=== PATIENT | female | born 1935 | race Caucasian/White ===

== ENCOUNTER 2017-10-23 21:14 | Emergency (ER) | payer OTHER, MEDICARE ==
[2017-10-23] MEDS ORDERED: PHENYLEPHRINE 0.5% NOSE 15ML NAS ONE (22:27)
[2017-10-23 22:46] LABS: Absolute Lymphocytes (CBC) 2.1 K/uL (0.7-4.9); Absolute Monocytes 0.8 K/uL (0.1-1.3); Absolute Neutrophil 7.6 K/uL (1.8-8.0); Basophils % 0.4 % (0-1.3); Eosinophils % 1.7 % (0-4.4); Lymphocytes % 19.7 % (15.3-44.8); MCH 29.6 pg (27.0-35.0); MCV 87.3 fL (80-100); MPV 8.9 fL (7.6-11.3); Monocytes % 7.3 % (3.3-12.3)
--- NOTE | 2017-10-23 23:28 | EDPHYS ---
Physician Documentation [facility] Name: Shanice Morales Age: 81 yrs Sex: Female : 1935 Arrival Date: 10/23/2017 Time: 21:17 Bed 14 Private MD: Robert Calvo C ED Physician Carlo Yeung HPI: 10/24 00:08 This 81 yrs old Female presents to ER via Ambulatory with complaints of Nose gs Bleed. 00:08 The patient presents with a nose bleed, that is apparently anterior. Onset: The gs symptoms/episode began/occurred 2 day(s) ago. Modifying factors: The symptoms are alleviated by nothing. the symptoms are aggravated by nothing. Associated signs and symptoms: Pertinent negatives: blurred vision, lightheadedness. Severity of symptoms: At their worst the symptoms were moderate in the emergency department the symptoms have improved mildly. The patient has experienced similar episodes in the past, a few times. Historical: - Allergies: 10/23 21:43 Demerol; aj1 21:43 Compazine; aj1 - Home Meds: 21:43 levothyroxine 88 mcg tab 1 tab once daily [Active]; Coreg 6.25 mg Oral tab 1 tab 2 aj1 times per day [Active]; Trileptal 150 mg oral tab 1 tabs 2 times per day [Active]; alendronate 70 mg/75 mL oral soln 75 mL once wkly [Active]; Lyrica 50 mg Oral [Active]; Lasix 20 mg Oral tab 1 tab once daily [Active]; losartan 25 mg oral tab 1 tab once daily [Active]; Xarelto 20 mg oral tab 1 tab once daily [Active]; fenofibrate 160 mg oral tab 1 tab once daily [Active]; - PMHx: 21:43 Hypothyroidism; Atrial Fib; nerve pain; aj1 - PSHx: 21:43 Knee surgery; aj1 - Immunization history:: Flu vaccine is up to date. - Social history:: Smoking status: Patient/guardian denies using tobacco. - Ebola Screening: : Patient denies travel to an Ebola-affected area in the 21 days before illness onset. ROS: 10/24 00:08 All other systems are negative. gs Exam: 00:08 Head/Face: Normocephalic, atraumatic. Eyes: Pupils equal round and reactive to light, gs extra-ocular motions intact. Lids and lashes normal. Conjunctiva and sclera are non-icteric and not injected. Cornea within normal limits. Periorbital areas with no swelling, redness, or edema. Neck: Trachea midline, no thyromegaly or masses palpated, and no cervical lymphadenopathy. Supple, full range of motion without nuchal rigidity, or vertebral point tenderness. No Meningismus. Cardiovascular: Regular rate and rhythm with a normal S1 and S2. No gallops, murmurs, or rubs. Normal PMI, no JVD. No pulse deficits. Respiratory: Lungs have equal breath sounds bilaterally, clear to auscultation and percussion. No rales, rhonchi or wheezes noted. No increased work of breathing, no retractions or nasal flaring. Abdomen/GI: Soft, non-tender, with normal bowel sounds. No distension or tympany. No guarding or rebound. No evidence of tenderness throughout. Skin: Warm, dry with normal turgor. Normal color with no rashes, no lesions, and no evidence of cellulitis. 00:08 Constitutional: The patient appears alert, awake. 00:08 ENT: Nose: bleeding, is seen from the right nare, and is minimal, no septal hematoma is appreciated, Posterior pharynx: blood noted posterior pharynx. Vital Signs: 10/23 21:43 BP 134 / 98; Pulse 87; Resp 20; Temp 97.6(O); Pulse Ox 94% on R/A; Weight 81.19 kg (R); aj1 Height 5 ft. 5 in. (165.10 cm) (R); Pain 0/10; 22:00 BP 124 / 101; Pulse 89; Resp 18; Temp 96.9; Pulse Ox 96% ; Pain 0/10; fu 23:01 BP 141 / 93; Pulse 89; Resp 18; Pulse Ox 96% ; Pain 0/10; fu 21:43 Body Mass Index 29.79 (81.19 kg, 165.10 cm) aj1 Procedures: 10/24 00:08 Epistaxis treatment: A small amount of bleeding noted from Treated using Oxymetazoline gs sprays, anterior packing, surgicel, Bleeding pharynx clear. MDM: 10/23 22:11 Patient medically screened. gs 10/24 00:08 Differential diagnosis: spontaneous epistaxis. Data reviewed: vital signs, nurses notes. Counseling: I had a detailed discussion with the patient and/or guardian regarding: the historical points, exam findings, and any diagnostic results supporting the discharge/admit diagnosis, lab results, the need for outpatient follow up, an ENT specialist. Response to treatment: the patient's symptoms have markedly improved after treatment, the patient's symptoms have resolved after treatment. 10/23 22:12 Order name: CBC with Diff; Complete Time: 23:25 10/23 22:12 Order name: Misc. Order: gargle swish and spit ice water until clear; Complete Time: 22:41 Administered Medications: 10/23 22:35 Drug: Miller-Synephrine [place] 0.5 % 2 sprays Route: Intranasal; Site: both nares; fu Disposition: 10/23/17 23:28 Discharged to Home. Impression: Epistaxis. - Condition is Stable. - Discharge Instructions: Nosebleed, Adult. - Prescriptions for Keflex 250 mg Oral Capsule - take 1 capsule by ORAL route every 12 hours for 5 days; 10 capsule. - Medication Reconciliation Form, Thank You Letter, Antibiotic Education, Prescription Opioid Use form. - Follow up: Cony Quinteros MD; When: 2 - 3 days; Reason: Re-evaluation by your physician. - Notes: have packing removed 3-5 days Signatures: Dispatcher [employer] Matilde King RN RN aj1 Carlo Yeung MD MD Mukund Jackson RN RN Corrections: (The following items were deleted from the chart) 10/24 00:32 10/23 23:28 10/23/2017 23:28 Discharged to Home. Impression: Epistaxis. Condition is fu Stable. Forms are Medication Reconciliation Form, Thank You Letter, Antibiotic Education, Prescription Opioid Use. Follow up: Cony Quinteros; When: 2 - 3 days; Reason: Re-evaluation by your physician.
--- NOTE | 2017-10-23 23:28 | ER ---
Nurse's Notes [facility] Name: Shanice Morales Age: 81 yrs Sex: Female : 1935 Arrival Date: 10/23/2017 Time: 21:17 Bed 14 Private MD: Robert Calvo C Diagnosis: Epistaxis Presentation: 10/23 21:32 Presenting complaint: Patient states: She fell 8 days ago and landed on her face, she aj1 does not remember falling states she velieves that she passed out. She was seen at Dr. Calvo's office on Tuesday, no addition tests or prescriptions were orderedat that time. Her nose has been recovering since then and she has 3 nose bleeds since the fall. Today she was unable to get the nose bleed to stop. Patient takes Xarelto for A-fib. Transition of care: patient was not received from another setting of care. Onset of symptoms was October 23, 2017. Risk Assessment: Do you want to hurt yourself or someone else? Patient reports no desire to harm self or others. Initial Sepsis Screen: Does the patient meet any 2 criteria? No. Patient's initial sepsis screen is negative. Does the patient have a suspected source of infection? No. Patient's initial sepsis screen is negative. Care prior to arrival: None. 21:32 Method Of Arrival: Ambulatory aj 21:32 Acuity: KYA 3 aj1 Triage Assessment: 21:43 General: Appears in no apparent distress. Behavior is calm, cooperative. Pain: Denies aj1 pain. Neuro: Level of Consciousness is awake, alert, obeys commands. Cardiovascular: Patient's skin is warm and dry. Respiratory: Airway is patent Respiratory effort is even, unlabored, Respiratory pattern is regular, symmetrical. Historical: - Allergies: 21:43 Demerol; aj1 21:43 Compazine; aj1 - Home Meds: 21:43 levothyroxine 88 mcg tab 1 tab once daily [Active]; Coreg 6.25 mg Oral tab 1 tab 2 aj1 times per day [Active]; Trileptal 150 mg oral tab 1 tabs 2 times per day [Active]; alendronate 70 mg/75 mL oral soln 75 mL once wkly [Active]; Lyrica 50 mg Oral [Active]; Lasix 20 mg Oral tab 1 tab once daily [Active]; losartan 25 mg oral tab 1 tab once daily [Active]; Xarelto 20 mg oral tab 1 tab once daily [Active]; fenofibrate 160 mg oral tab 1 tab once daily [Active]; - PMHx: 21:43 Hypothyroidism; Atrial Fib; nerve pain; aj1 - PSHx: 21:43 Knee surgery; aj1 - Immunization history:: Flu vaccine is up to date. - Social history:: Smoking status: Patient/guardian denies using tobacco. - Ebola Screening: : Patient denies travel to an Ebola-affected area in the 21 days before illness onset. Screenin:35 Fall Risk Fall in past 12 months (25 points). Secondary diagnosis (15 points) IV access fu (20 points). Ambulatory Aid- None/Bed Rest/Nurse Assist (0 pts). Gait- Normal/Bed Rest/Wheelchair (0 pts) Mental Status- Oriented to own ability (0 pts). Assessment: 22:08 General: Appears uncomfortable, well groomed, well developed, Behavior is calm, fu cooperative. Pain: Denies pain. Neuro: Level of Consciousness is awake, alert, obeys commands, Oriented to person, place, time, situation, Stamp Collector are equal bilaterally Moves all extremities. Speech is normal, Facial symmetry appears normal, Intact Cardiovascular: Reports history of afib and takes Xarelto at home. Respiratory: Airway is patent Breath sounds are clear bilaterally. GI: No signs and/or symptoms were reported involving the gastrointestinal system. Patient currently denies nausea, vomiting. Derm: Bruising that is on left periorbital area, right upper arm, and both chest due to fall 8 days ago. Musculoskeletal: No signs and/or symptoms reported regarding the musculoskeletal system. Vital Signs: 21:43 BP 134 / 98; Pulse 87; Resp 20; Temp 97.6(O); Pulse Ox 94% on R/A; Weight 81.19 kg (R); aj1 Height 5 ft. 5 in. (165.10 cm) (R); Pain 0/10; 22:00 BP 124 / 101; Pulse 89; Resp 18; Temp 96.9; Pulse Ox 96% ; Pain 0/10; fu 23:01 BP 141 / 93; Pulse 89; Resp 18; Pulse Ox 96% ; Pain 0/10; fu 21:43 Body Mass Index 29.79 (81.19 kg, 165.10 cm) aj1 ED Course: 21:17 Patient arrived in ED. es 21:18 Robert Calvo MD is Private Physician. es 21:37 Triage completed. aj1 21:43 Arm band placed on Patient placed in an exam room. aj1 21:49 Mukund Jackson, RN is Primary Nurse. fu 21:52 Carlo Yeung MD is Attending Physician. gs 22:15 Inserted saline lock: 20 gauge in right forearm, using aseptic technique. fu 22:15 Initial lab(s) drawn, by me, sent to lab. fu 23:12 Side rails up X 1. family at bedside. fu 23:26 Cony Quinteros MD is Referral Physician. gs 23:50 IV discontinued, bleeding controlled, No redness/swelling at site. Pressure dressing fu applied. Administered Medications: 22:35 Drug: Miller-Synephrine [place] 0.5 % 2 sprays Route: Intranasal; Site: both nares; fu Outcome: 23:28 Discharge ordered by . 23:58 Discharged to home ambulatory, with family. fu 23:58 Condition: improved 23:58 Discharge instructions given to patient, Instructed on discharge instructions, follow up and referral plans. Demonstrated understanding of instructions, follow-up care, medications, Prescriptions given X 1. 10/24 00:32 Patient left the ED. fu Signatures: Matilde Tucker, RN RN aj1 Velma Langston Carlo Yeung MD MD Mukund Jackson RN RN fu
== END 2017-10-24 00:32 | disposition home or self-care (01) ==
LOC: ER 21:14
DX: R04.0 Epistaxis (principal); E03.9 Hypothyroidism, unspecified; I48.91 Unspecified atrial fibrillation; Z79.01 Long term (current) use of anticoagulants; Z88.5 Allergy status to narcotic agent; Z88.8 Allergy status to other drugs, medicaments and biological substances
CPT/HCPCS: 30901; 36415; 85025; 99284

== ENCOUNTER → 2017-11-10 | Day surgery (SDC) | payer OTHER, MEDICARE ==
[2017-11-09 13:50] LABS: Absolute Lymphocytes (CBC) 1.7 K/uL (0.7-4.9); Absolute Monocytes 0.6 K/uL (0.1-1.3); Absolute Neutrophil 3.9 K/uL (1.8-8.0); Basophils % 0.3 % (0-1.3); Eosinophils % 2.1 % (0-4.4); Hematocrit 41.6 % (36.0-45.0); Lymphocytes % 26.8 % (15.3-44.8); MCH 29.7 pg (27.0-35.0); MPV 8.9 fL (7.6-11.3); Monocytes % 9.1 % (3.3-12.3); RBC Red Blood Cell Count 4.72 M/uL (3.86-4.86)
[2017-11-09 13:54] LABS: Protime INR 1.18
[2017-11-09 14:04] LABS: Potassium 4.4 mmol/L (3.5-5.1)
--- NOTE | 2017-11-09 14:13 | RAD REPORT ---
EXAM DESCRIPTION: RAD - Chest Pa And Lat (2 Views) - 11/09/2017 1:46 pm CLINICAL HISTORY: preop<Reason For Exam>preop Preop chest, pending cardioversion COMPARISON: Chest Pa And Lat (2 Views) dated 09/26/2017; CHEST PA AND LAT 2 VIEW dated 02/03/2015; CH EST PA AND LAT 2 VIEW dated 06/05/2012; CHEST PA AND LAT 2 VIEW dated 07/15/2011; Chest For Pe Angio [place] 10/04/2017<Comparisons> TECHNIQUE: PA and lateral views of the chest were obtained. FINDINGS: The lungs are clear of a peripheral mass, infiltrate or failure finding. Lung markings are prominent but not clearly different. Cardiomegaly is present without vascular engorgement. Trachea is midline. Heart size is normal and central vasculature is within normal limits. No pleural effusio n or pneumothorax seen. No acute bony finding noted. No aortic abnormality. IMPRESSION: Stable cardiomegaly with no acute failure or volume overload. Mild chronic interstitial lung disease with no acute lung parenchymal process.
[~2017-11-10] MED LIST: METOPROLOL TARTRATE 5 MG/5 ML INJ IV ONE; MIDAZOLAM HCL 5 MG/5 ML INJ ONE; NA CHLORIDE 0.9% 500 ML ONE
--- NOTE | 2017-11-10 12:20 | OP ---
Surgeon: Rell Ayala MD Procedure: Ms. Morales is an 81-year-old white woman with symptomatic atrial fibrillation with bleedi ng on Xarelto, admitted for cardioversion. She was admitted as an outpatient. She was given 8 mg of Versed IV push for sedation. She received 1 shock of 100 joules and she remained in atrial fibrilla tion at the second shock of 200 joules synchronized for atrial fibrillation. The patient went into v entricular fibrillation, which was rapidly converted to sinus rhythm after receiving 1 shock of 360 j oules. There was no blood loss. Postoperative Diagnosis: Coronary successful cardioversion of atrial fibrillation to sinus rhythm. Total Conscious Sedation: 30 minutes. Plan: The plan is to continue Xarelto, stop Coreg, start Multaq 400 b.i.d., and I will see her in e office in 2 weeks. She can go home today whenever she wakes up. SARAH/HARLEY Voice ID: [id number] Report ID: [id number]
--- NOTE | 2017-11-10 16:29 | EKG ---
Test Date: 2017-11-10 Test Time: 09:35:34 [employer] Associate: JACEY MEASUREMENT RESULTS: Intervals: Rate: 83 MN: QRSD: 102 QT: 374 QTc: 439 [place]: P: MN: QRS: -29 T: 17 INTERPRETIVE STATEMENTS: Atrial fibrillation Abnormal ECG Compared to ECG 11/10/2017 08:10:58 Sinus rhythm no longer present First degree AV block no longer present Left-axis deviation no longer present Electronically Signed On 11-10-17 16:26:11 CDT by Rell Ayala
--- NOTE | 2017-11-10 16:30 | EKG ---
Test Date: 2017-11-10 Test Time: 08:10:58 Adjunct Professor Of [employer] History: JACEY MEASUREMENT RESULTS: Intervals: Rate: 61 AL: 252 QRSD: 104 QT: 428 QTc: 430 [place]: P: 61 AL: 252 QRS: -32 T: 26 INTERPRETIVE STATEMENTS: Sinus rhythm with 1st degree AV block Left axis deviation Abnormal ECG Compared to ECG 08/07/2013 18:15:38 First degree AV block now present Left-axis deviation now present Atrial fibrillation no longer present Electronically Signed On 11-10-17 16:26:22 CDT by Rell Ayala
== END | disposition home or self-care (01) ==
LOC: CCL 06:30
DX: I48.91 Unspecified atrial fibrillation (principal); Z79.01 Long term (current) use of anticoagulants
CPT/HCPCS: 36415; 71046; 80048; 85025; 85610; 85730; 92960; 93005 ×2; J2250

== ENCOUNTER 2018-02-13 17:14 | Emergency (ER) | payer OTHER, MEDICARE ==
[2018-02-13 18:46] LABS: Absolute Lymphocytes (CBC) 1.2 K/uL (0.7-4.9); Absolute Monocytes 0.5 K/uL (0.1-1.3); Absolute Neutrophil 5.8 K/uL (1.8-8.0); Basophils % 0.2 % (0-1.3); Eosinophils % 1.1 % (0-4.4); Hematocrit 41.9 % (36.0-45.0); Lymphocytes % 16.2 % (15.3-44.8); MCH 30.2 pg (27.0-35.0); MPV 9.3 fL (7.6-11.3); Monocytes % 6.8 % (3.3-12.3); RBC Red Blood Cell Count 4.71 M/uL (3.86-4.86)
--- NOTE | 2018-02-13 19:22 | RAD REPORT ---
EXAM DESCRIPTION: CT - Head Brain Wo Cont - 02/13/2018 7:03 pm CLINICAL HISTORY: TRAUMA Fall, head injury COMPARISON: HEAD BRAIN W O CONTRAST dated 10/11/2013; HEAD BRAIN W O CONTRAST dated 04/16/2008 TECHNIQUE: All CT scans are performed using dose optimization technique as appropriate and may inclu de automated exposure control or mA/KV adjustment according to patient size. FINDINGS: No intracranial hemorrhage, hydrocephalus or extra-axial fluid collection.Mild generalized brain atrophy is present with mild periventricular and deep white matter chronic microvascular ische ezra changes.No areas of brain edema or evidence of midline shift. The paranasal sinuses and mastoids are clear. The calvarium is intact. IMPRESSION: No acute intracranial abnormality.
--- NOTE | 2018-02-13 19:24 | RAD REPORT ---
EXAM DESCRIPTION: RAD - Chest Single View - 02/13/2018 6:59 pm CLINICAL HISTORY: MALAISE Chest pain. COMPARISON: Chest Pa And Lat (2 Views) dated 11/22/2017; Chest Pa And Lat (2 Views) dated 11/09/2017; Chest Pa And Lat (2 Views) dated 09/26/2017; CHEST PA AND LAT 2 VIEW dated 02/03/2015 FINDINGS: Portable technique limits examination quality. The lungs are grossly clear. The heart is moderately enlarged in size. No displaced fractures. IMPRESSION: Moderate cardiomegaly.
[2018-02-13 19:56] LABS: Protime INR 1.18
[2018-02-13 20:10] LABS: Albumin 3.9 g/dL (3.4-5.0); Bilirubin Direct 0.2 mg/dL (0-0.2); Bilirubin Total 0.5 mg/dL (0.2-1.0); Magnesium 2.3 mg/dL (1.8-2.4); Protein, Total 7.3 g/dL (6.4-8.2); Troponin (Emerg Dept Use Only) 0.04 ng/mL (0.0-0.045)
--- NOTE | 2018-02-13 20:15 | ER ---
Nurse's Notes [facility] Name: Shanice Morales Age: 82 yrs Sex: Female : 1935 Arrival Date: 02/13/2018 Time: 17:23 Bed 20 Private MD: Robert Calvo C Diagnosis: Weakness Presentation: 02/13 17:25 Presenting complaint: EMS states: pt was out covering her plants today and fell in the tw2 yard, denies head trauma, no loc, says she has been weak since Tuesday, pt is on Xarelto, hypertensive and tachycardic for us, ekg showed left bundle branch block, 90 mg/dL is glucose, hx: afib, hypertension, tia, hyperlipidemia, hyperthyroidism, pulmonary htn, vertigo. Transition of care: patient was not received from another setting of care. Onset of symptoms was February 13, 2018. Risk Assessment: Do you want to hurt yourself or someone else? Patient reports no desire to harm self or others. Initial Sepsis Screen: Does the patient meet any 2 criteria? No. Patient's initial sepsis screen is negative. Does the patient have a suspected source of infection? No. Patient's initial sepsis screen is negative. Care prior to arrival: IV initiated. 20 GA, in the right forearm. 17:25 Method Of Arrival: EMS: [facility] tw2 17:25 Acuity: KYA 3 tw2 Historical: - Allergies: 17:42 Compazine; tw2 17:42 Demerol; tw2 17:42 meperidine HCl; tw2 - Home Meds: 17:42 Xarelto 20 mg Oral TbER 1 tab once daily [Active]; Trileptal 150 mg Oral TbER 1 tabs 2 tw2 times per day [Active]; Lyrica 50 mg Oral [Active]; alendronate 70 mg/75 mL Oral soln 75 mL once wkly [Active]; Meclizine Oral [Active]; Coreg 6.25 mg Oral TbER 1 tab 2 times per day [Active]; fenofibrate 160 mg Oral TbER 1 tab once daily [Active]; Lasix 20 mg Oral TbER 1 tab once daily [Active]; levothyroxine 88 mcg TbER 1 tab once daily [Active]; losartan 25 mg Oral TbER 1 tab once daily [Active]; - PMHx: 17:42 Atrial Fib; Hypothyroidism; nerve pain; Hypertension; Hyperlipidemia; TIA; vertigo; tw2 - PSHx: 17:42 Knee surgery; tw2 - Immunization history:: Adult Immunizations. - Social history:: Smoking status: . - Ebola Screening: : Patient denies travel to an Ebola-affected area in the 21 days before illness onset. Screenin:43 Abuse screen: Denies threats or abuse. Nutritional screening: No deficits noted. tw2 Tuberculosis screening: No symptoms or risk factors identified. Fall Risk None identified. Assessment: 17:43 General: Appears in no apparent distress. Behavior is calm, cooperative, appropriate tw2 for age. Pain: Denies pain. Neuro: Level of Consciousness is awake, alert, obeys commands, Oriented to person, place, time, situation, Reports weakness since Tuesday. Cardiovascular: Heart tones S1 S2 Patient's skin is warm and dry. Respiratory: Airway is patent Respiratory effort is even, unlabored, Respiratory pattern is regular, symmetrical, Breath sounds are clear bilaterally. GI: Abdomen is round non-distended, Bowel sounds present X 4 quads. Reports constipation, since for 5 days now. : No signs and/or symptoms were reported regarding the genitourinary system. EENT: No signs and/or symptoms were reported regarding the EENT system. Derm: No signs and/or symptoms reported regarding the dermatologic system. Musculoskeletal: Range of motion: intact in all extremities. 18:45 Reassessment: pt sent to restroom in w/c, pt had bm at this time. tw2 18:55 Reassessment: Patient appears in no apparent distress at this time. No changes from tw2 previously documented assessment. Patient and/or family updated on plan of care and expected duration. Pain level reassessed. Patient is alert, oriented x 3, equal unlabored respirations, skin warm/dry/pink. 19:12 Reassessment: Patient appears in no apparent distress at this time. No changes from jd3 previously documented assessment. Patient and/or family updated on plan of care and expected duration. Pain level reassessed. Patient is alert, oriented x 3, equal unlabored respirations, skin warm/dry/pink. 20:11 Reassessment: Patient appears in no apparent distress at this time. Patient and/or jd3 family updated on plan of care and expected duration. Pain level reassessed. Patient is alert, oriented x 3, equal unlabored respirations, skin warm/dry/pink. 20:41 Reassessment: Patient appears in no apparent distress at this time. Patient and/or jd3 family updated on plan of care and expected duration. Pain level reassessed. Patient is alert, oriented x 3, equal unlabored respirations, skin warm/dry/pink. Patient states feeling better. Vital Signs: 17:27 BP 137 / 82; Pulse 99; Resp 18; Pulse Ox 97% on R/A; Pain 0/10; tw2 17:31 Temp 97.8(TE); tw2 18:55 BP 130 / 105; Pulse 100; Resp 17; Pulse Ox 97% on R/A; tw2 19:23 Pulse 98; Resp 19 S; Pulse Ox 97% on R/A; jd3 20:11 BP 139 / 97; Pulse 92; Resp 18 S; Pulse Ox 96% on R/A; jd3 NIH Stroke Scale Scores: 20:31 NIHSS Score: 0 gs ED Course: 17:23 Patient arrived in ED. rg4 17:23 Robert Calvo MD is Private Physician. rg4 17:24 Camila Pandey RN is Primary Nurse. tw2 17:25 Bed in low position. Call light in reach. Side rails up X2. rn intern on. Pulse tw2 ox on. NIBP on. Warm blanket given. 17:27 Carlo Yeung MD is Attending Physician. gs 17:27 Triage completed. tw2 17:43 Arm band placed on. tw2 18:02 EKG done, by polysomnography technologist. reviewed by Carlo Yeung MD. dt2 18:02 Maintain EMS IV. Dressing intact. Good blood return noted. Site clean \T\ dry. Gauge \T\ tw 2 site: 18 g right fa. 18:59 XRAY Chest (1 view) In Process Unspecified. EDMS 19:03 CT Head Brain wo Cont In Process Unspecified. EDMS 19:05 Report given to KIARA Echevarria - outstanding is labs recollect. tw2 20:40 No provider procedures requiring assistance completed. IV discontinued, intact, jd3 bleeding controlled, No redness/swelling at site. Pressure dressing applied. Administered Medications: No medications were administered Outcome: 20:14 Discharge ordered by . gs 20:40 Discharged to home via wheelchair, with family. jd3 20:40 Condition: stable 20:40 Discharge instructions given to patient, family, Instructed on discharge instructions, follow up and referral plans. Demonstrated understanding of instructions, follow-up care. 20:41 Patient left the ED. [email or web address] NIH Stroke Scale - NIH Stroke Score Date: 02/13/2018 Time: 20:31 Total Score = 0 1a. Level of Consciousness (LOC) - 0(Alert) 1b. Level of Consciousness (LOC) (Year \T\ Age) - 0(Both) 1c. LOC Commands (Open \T\ Closes Eyes/Printer Helper) - 0(Both) 2. Best Gaze (Lateral Gaze Paresis) - 0(Normal) 3. Visual Field Loss - 0(No visual loss) 4. Facial Palsy - 0(Normal) 5a. Left Arm: Motor (10-second hold) - 0(No drift) 5b. Right Arm: Motor (10-second hold) - 0(No drift) 6a. Left Leg: Motor (5-second hold - always test supine) - 0(No drift) 6b. Right Leg: Motor (5-second hold - always test supine) - 0(No drift) 7. Limb Ataxia (finger/nose \T\ heel/chairez - test with eyes open) - 0(Absent) 8. Sensory Loss (pinprick arms/legs/face) - 0(Normal) 9. Best Language: Aphasia (description/naming/reading) - 0(No aphasia) 10. Dysarthria (speech clarity - read or repeat words) - 0(Normal) 11. Extinction and Inattention (visual/tactile/auditory/spatial/personal) - 0(No abnormality) Initials: Signatures: Dispatcher [employer] Camila Briones RN RN tw2 Shama Mina rg4 Carlo Yeung MD MD Jonathan Chen RN RN jd3 Maribel Vizcaino2
--- NOTE | 2018-02-13 20:15 | EDPHYS ---
Physician Documentation [facility] Name: Shanice Morales Age: 82 yrs Sex: Female : 1935 Arrival Date: 02/13/2018 Time: 17:23 Bed 20 Private MD: Robert Calvo C ED Physician Carlo Yeung HPI: 02/13 20:31 This 82 yrs old Female presents to ER via EMS with complaints of Weakness. gs 20:31 The patient presents to the emergency department with weakness of the. Onset: The gs symptoms/episode began/occurred 2 week(s) ago, and became persistent fell today. Associated signs and symptoms: Pertinent negatives: altered mental status, fever, neck stiffness, paresthesias, syncope. Severity of symptoms: At their worst the symptoms were moderate in the emergency department the symptoms have improved markedly. The patient has experienced similar episodes in the past, a few times. Historical: - Allergies: 17:42 Compazine; tw2 17:42 Demerol; tw2 17:42 meperidine HCl; tw2 - Home Meds: 17:42 Xarelto 20 mg Oral TbER 1 tab once daily [Active]; Trileptal 150 mg Oral TbER 1 tabs 2 tw2 times per day [Active]; Lyrica 50 mg Oral [Active]; alendronate 70 mg/75 mL Oral soln 75 mL once wkly [Active]; Meclizine Oral [Active]; Coreg 6.25 mg Oral TbER 1 tab 2 times per day [Active]; fenofibrate 160 mg Oral TbER 1 tab once daily [Active]; Lasix 20 mg Oral TbER 1 tab once daily [Active]; levothyroxine 88 mcg TbER 1 tab once daily [Active]; losartan 25 mg Oral TbER 1 tab once daily [Active]; - PMHx: 17:42 Atrial Fib; Hypothyroidism; nerve pain; Hypertension; Hyperlipidemia; TIA; vertigo; tw2 - PSHx: 17:42 Knee surgery; tw2 - Immunization history:: Adult Immunizations. - Social history:: Smoking status: . - Ebola Screening: : Patient denies travel to an Ebola-affected area in the 21 days before illness onset. ROS: 20:31 All other systems are negative. gs Exam: 20:31 Head/Face: Normocephalic, atraumatic. Eyes: Pupils equal round and reactive to light, gs extra-ocular motions intact. Lids and lashes normal. Conjunctiva and sclera are non-icteric and not injected. Cornea within normal limits. Periorbital areas with no swelling, redness, or edema. ENT: Nares patent. No nasal discharge, no septal abnormalities noted. Tympanic membranes are normal and external auditory canals are clear. Oropharynx with no redness, swelling, or masses, exudates, or evidence of obstruction, uvula midline. Mucous membranes moist. Neck: Trachea midline, no thyromegaly or masses palpated, and no cervical lymphadenopathy. Supple, full range of motion without nuchal rigidity, or vertebral point tenderness. No Meningismus. Chest/axilla: Normal chest wall appearance and motion. Nontender with no deformity. No lesions are appreciated. Respiratory: Lungs have equal breath sounds bilaterally, clear to auscultation and percussion. No rales, rhonchi or wheezes noted. No increased work of breathing, no retractions or nasal flaring. Abdomen/GI: Soft, non-tender, with normal bowel sounds. No distension or tympany. No guarding or rebound. No evidence of tenderness throughout. Back: No spinal tenderness. No costovertebral tenderness. Full range of motion. Skin: Warm, dry with normal turgor. Normal color with no rashes, no lesions, and no evidence of cellulitis. MS/ Extremity: Pulses equal, no cyanosis. Neurovascular intact. Full, normal range of motion. Neuro: Awake and alert, GCS 15, oriented to person, place, time, and situation. Cranial nerves II-XII grossly intact. Motor strength 5/5 in all extremities. Sensory grossly intact. Cerebellar exam normal. Normal gait. 20:31 Constitutional: The patient appears alert, awake. 20:31 Cardiovascular: Rate: normal, Rhythm: irregularly irregular, Pulses: no pulse deficits are appreciated, Heart sounds: normal. 20:31 ECG was reviewed by the Attending Physician. Vital Signs: 17:27 BP 137 / 82; Pulse 99; Resp 18; Pulse Ox 97% on R/A; Pain 0/10; tw2 17:31 Temp 97.8(TE); tw2 18:55 BP 130 / 105; Pulse 100; Resp 17; Pulse Ox 97% on R/A; tw2 19:23 Pulse 98; Resp 19 S; Pulse Ox 97% on R/A; jd3 20:11 BP 139 / 97; Pulse 92; Resp 18 S; Pulse Ox 96% on R/A; jd3 NIH Stroke Scale Scores: 20:31 NIHSS Score: 0 gs MDM: 18:09 Patient medically screened. 20:31 Data reviewed: vital signs, nurses notes. Counseling: I had a detailed discussion with the patient and/or guardian regarding: the historical points, exam findings, and any diagnostic results supporting the discharge/admit diagnosis, lab results, radiology results, the need for outpatient follow up. Response to treatment: the patient's symptoms have markedly improved after treatment, wants to be discharged. ED course: ddx head injury, mi, tia. 02/13 18:20 Order name: Basic Metabolic Panel; Complete Time: 20:12 02/13 18:20 Order name: CBC with Diff; Complete Time: 19:30 02/13 18:20 Order name: LFT's; Complete Time: 20:12 02/13 18:20 Order name: Magnesium; Complete Time: 20:12 02/13 18:20 Order name: NT PRO-BNP; Complete Time: 20:12 02/13 18:20 Order name: PT-INR; Complete Time: 20:05 02/13 17:51 Order name: EKG - Nurse/Tech; Complete Time: 17:52 tw2 02/13 17:51 Order name: EKG; Complete Time: 17:52 tw2 02/13 18:20 Order name: Troponin (emerg Dept Use Only); Complete Time: 20:12 02/13 18:20 Order name: XRAY Chest (1 view); Complete Time: 19:30 02/13 18:20 Order name: Cardiac monitoring; Complete Time: 18:35 02/13 18:20 Order name: IV Saline Lock; Complete Time: 18:35 02/13 18:20 Order name: Labs collected and sent; Complete Time: 18:35 02/13 18:20 Order name: CT Head Brain wo Cont; Complete Time: 19:30 02/13 18:20 Order name: O2 Per Protocol; Complete Time: 18:35 02/13 18:20 Order name: O2 Sat Monitoring; Complete Time: 18:35 02/13 18:55 Order name: Labs - recollect needed; Complete Time: 19:53 bd EC:31 Rate is 107 beats/min. Rhythm is irregularly irregular. LA interval is prolonged. QRS gs interval is prolonged. T waves are Normal. No ST changes noted. Clinical impression: Abnormal EKG without significant change. Administered Medications: No medications were administered Disposition: 02/13/18 20:14 Discharged to Home. Impression: Weakness. - Condition is Stable. - Discharge Instructions: Weakness, Fatigue. - Medication Reconciliation Form, Thank You Letter, Antibiotic Education, Prescription Opioid Use form. - Follow up: Private Physician; When: 2 - 3 days; Reason: Re-evaluation by your physician. NIH Stroke Scale - NIH Stroke Score Date: 02/13/2018 Time: 20:31 Total Score = 0 1a. Level of Consciousness (LOC) - 0(Alert) 1b. Level of Consciousness (LOC) (Year \T\ Age) - 0(Both) 1c. LOC Commands (Open \T\ Closes Eyes/Relationship Mgr) - 0(Both) 2. Best Gaze (Lateral Gaze Paresis) - 0(Normal) 3. Visual Field Loss - 0(No visual loss) 4. Facial Palsy - 0(Normal) 5a. Left Arm: Motor (10-second hold) - 0(No drift) 5b. Right Arm: Motor (10-second hold) - 0(No drift) 6a. Left Leg: Motor (5-second hold - always test supine) - 0(No drift) 6b. Right Leg: Motor (5-second hold - always test supine) - 0(No drift) 7. Limb Ataxia (finger/nose \T\ heel/chairez - test with eyes open) - 0(Absent) 8. Sensory Loss (pinprick arms/legs/face) - 0(Normal) 9. Best Language: Aphasia (description/naming/reading) - 0(No aphasia) 10. Dysarthria (speech clarity - read or repeat words) - 0(Normal) 11. Extinction and Inattention (visual/tactile/auditory/spatial/personal) - 0(No abnormality) Initials: Signatures: Dispatcher [employer] EDMS Xiao Kramer Tara, RN RN tw2 Carlo Yeung MD MD gs Davies, Jonathon, RN RN jd3 Corrections: (The following items were deleted from the chart) 20:41 20:14 02/13/2018 20:14 Discharged to Home. Impression: Weakness. Condition is jd3 Stable. Forms are Medication Reconciliation Form, Thank You Letter, Antibiotic Education, Prescription Opioid Use. Follow up: Private Physician; When: 2 - 3 days; Reason: Re-evaluation by your physician. gs
--- NOTE | 2018-02-14 07:06 | EKG ---
Test Date: 2018-02-13 Test Time: 17:24:58 Landscape And Yardwork Laborer: JOYCE MEASUREMENT RESULTS: Intervals: Rate: 101 TX: QRSD: 152 QT: 338 QTc: 438 [place]: P: TX: QRS: -79 T: 75 INTERPRETIVE STATEMENTS: Atrial fibrillation with rapid ventricular response Left axis deviation Left bundle branch block Abnormal ECG Compared to ECG 11/10/2017 09:35:34 Left-axis deviation now present Left bundle-branch block now present Electronically Signed On 02-14-18 07:05:30 ASSEMBLER BILLIARD TABLE by Rell Ayala
--- NOTE | 2018-02-14 12:02 | EKG ---
Test Date: 2018-02-13 Test Time: 19:18:07 Rivet Flunky: TEO MEASUREMENT RESULTS: Intervals: Rate: 107 GA: QRSD: 148 QT: 370 QTc: 493 [place]: P: GA: QRS: -33 T: 142 INTERPRETIVE STATEMENTS: Atrial fibrillation with rapid ventricular response Left axis deviation Left bundle branch block Abnormal ECG Compared to ECG 02/13/2018 17:24:58 No significant changes Electronically Signed On 02-14-18 12:00:34 TREE FRUIT AND NUT FARMING SUPERVISOR by Rell Ayala
== END 2018-02-13 20:41 | disposition home or self-care (01) ==
LOC: ER 17:14
DX: R53.1 Weakness (principal); I10 Essential (primary) hypertension; E78.5 Hyperlipidemia, unspecified; I48.91 Unspecified atrial fibrillation; E03.9 Hypothyroidism, unspecified; Z79.01 Long term (current) use of anticoagulants; Z88.5 Allergy status to narcotic agent; Z88.8 Allergy status to other drugs, medicaments and biological substances
CPT/HCPCS: 36415; 70450; 71045; 80048; 80076; 83735; 83880; 84484; 85025; 85610; 93005; 99284

== ENCOUNTER 2019-02-13 15:12 | Inpatient (IN) | payer OTHER, MEDICARE ==
--- OUTSIDE RECORDS SUMMARY | 2019-02-13 15:36 | XMS REPORT ---
:1935 [facility] Address [address] [place] [address] Dr. Tillman [address] [place] [id number] Care Team Providers Name Role Phone Unavailable Unavailable Unavailable Problems This patient has no known problems. Allergies, Adverse Reactions, Alerts This patient has no known allergies or adverse reactions. Medications This patient has no known medications.
[2019-02-13 15:56] VITALS: BMI 32.8
[2019-02-13] MEDS: CEFTRIAXONE/SWI 1gm 1 GM/10 ML SYR IVP SCH ×2 (17:18→20:19)
[2019-02-13] MEDS: NA CHLORIDE 0.9% 1,000 ML IV SCH (17:18)
--- NOTE | 2019-02-14 01:05 | HP ---
Date of Admission: 02/13/2019 Chief Complaint: Nausea, vomiting, diarrhea, feeling weak. History Of Present Illness: Ms. Morales is a very pleasant elderly female patient, who was doing fine until 1 week ago after she had her meal at a local restaurant, [employer]. She started to have nausea a nd vomiting that lasted for several hours and she had multiple episodes of vomiting during that time. After first day, she has not had any more vomiting. Subsequently, she started to have abdominal cr amps and then 3 days later, she started to have diarrhea and she still continues to have diarrhea. Y esterday, she had 2 loose bowel movements. She still continues to have some abdominal cramps. She f eels very weak. Has very poor appetite. Feels dizzy, sleepy, tired. She did not check her temperat ure during this time of illness, but she felt like she might have had some fever. When she gets up a nd walks she feels unsteady, weak, and dizzy. Her daughter called office yesterday and she was advis ed to get blood work and stool test yesterday and come see me, but she did not have any blood work or stool test done yesterday and she had those tests done today and after the blood work done, she came to office to see me. After she was evaluated, she was admitted to the hospital. Allergies: TO DEMEROL, CAUSING ITCHING; COMPAZINE CAUSING UNCONTROLLABLE HEAD MOVEMENT; STATIN CAUSI NG MYALGIA; AND ZETIA, DETAILS UNKNOWN. Medications: List reviewed. Review of Systems: Constitutional: As mentioned above. GI: As mentioned above. All other systems reviewed and negative. Past Medical History: Hypothyroidism, impaired fasting glucose, pulmonary hypertension, hyperlipidem ia, which is mixed, chronic atrial fibrillation, hypertension, diverticulosis. Past Surgical History: Significant for surgery for ovarian cyst and knee surgery. Family History: Father , details unknown. Mother had gallbladder problem and with gallblad isabel complications. Brother , details unknown. Sister had breast cancer. Social History: Negative for smoking and alcohol use. Physical Examination: Vital Signs: At office, blood pressure was 117/75, pulse 88, temperature 97.9, respiratory rate 15, weight 176.2 pounds, height 64 inches. General: Patient appears weak, tired, and sleepy. HEENT: Head atraumatic, normocephalic. Conjunctivae nonerythematous. Sclerae white. Mouth, dry or al mucosa. Ears/Nose, no mass, lesion, discharge noted. Neck: Supple. No JVD, lymph nodes, bruit, thyromegaly noted. Lungs: Bilateral good equal air entry. Clear to auscultation. No rhonchi. No rales. Heart: Normal heart sounds, no murmur or gallop. Abdomen: Mild diffuse abdominal tenderness. No guarding, rigidity. No distention. Bowel sounds ar e normoactive. Extremities: No leg edema. No calf tenderness. Skin: No rash, ulcer, cellulitis. Lymphatics: No lymph node enlargement in neck, supraclavicular, infraclavicular region. Neuro: No focal neurological deficit. Chest: Unremarkable. External Genitalia: Deferred. Rectal: Deferred. Laboratory Data: Stool test pending. White count 15.7, hemoglobin 11.9, platelets 290. Sodium 133, potassium 3.7, chloride 95, bicarb 33, BUN 10, creatinine 0.75, glucose 102. Liver function tests u nremarkable. TSH 3.12. Impression: 1.Acute gastroenteritis. 2.Volume depletion. 3.Chronic atrial fibrillation. 4.Hypertension. 5.Impaired fasting glucose. 6.Mixed hyperlipidemia. 7.Diverticulosis. 8.Pulmonary hypertension. 9.Hypothyroidism. 10.Osteopenia. Plan: Admit the patient to hospital for further evaluation and management of this problem. The [facility] ent is appropriate for inpatient and is expected to spend 2 midnights in hospital. We will continue home medications per order. IV fluid will be started. IV antibiotic will be started. Follow up on stool test. Regular diet was ordered. We will continue her oral anticoagulant medications and start ing tomorrow we will consult Physical Therapy to help ambulate the patient. Details and plan of jessika tment discussed with the patient. I will avoid fluoroquinolones, for example, Cipro and Levaquin typ e of medications because of her antiarrhythmic medication that she takes in view of possible interact ion. ROULA/MODL Voice ID: [id number]
[2019-02-14] MEDS: NA CHLORIDE 0.9% 1,000 ML IV SCH ×3 (01:54→20:18)
[2019-02-14 05:56] LABS: Urine Appearance CLEAR; Urine Bilirubin NEGATIVE (NEG); Urine Blood NEGATIVE (NEG); Urine Color YELLOW; Urine Glucose NEGATIVE (NEG); Urine Protein NEGATIVE (NEG); Urine Specific Gravity <=1.005 (1.005-1.030); Urine Urobilinogen 0.2 mg/dL (0.2-1.0); Urine pH 7.5 (5.0-7.0)
[2019-02-14 05:58] LABS: Urine Microscopic Reflex NO UMIC
[2019-02-14] MEDS: LEVOTHYROXINE 88 MCG PO SCH (06:00)
[2019-02-14 06:22] LABS: Absolute Lymphocytes (CBC) 1.3 K/uL (0.7-4.9); Basophils % 0.2 % (0-1.3); Hematocrit 32.9 % (36.0-45.0); Lymphocytes % 8.3 % (15.3-44.8); MPV 9.2 fL (7.6-11.3); RBC Red Blood Cell Count 3.76 M/uL (3.86-4.86)
[2019-02-14 06:35] LABS: BUN Blood Urea Nitrogen 9 mg/dL (7-18); Bicarbonate 30 mmol/L (21-32); Glucose Level 120 mg/dL (74-106); Magnesium 1.9 mg/dL (1.8-2.4); Potassium 4.1 mmol/L (3.5-5.1); Sodium Level 136 mmol/L (136-145)
--- NOTE | 2019-02-14 07:44 | EKG ---
Test Date: 2019-02-13 Test Time: 22:59:00 Clean Up Person: SIDDHARTH MEASUREMENT RESULTS: Intervals: Rate: 125 PA: QRSD: 146 QT: 356 QTc: 513 [place]: P: PA: QRS: -7 T: 134 INTERPRETIVE STATEMENTS: Atrial fibrillation with rapid ventricular response Left bundle branch block Abnormal ECG Compared to ECG 02/13/2018 19:18:07 no significant change from previous ECG Electronically Signed On 02-14-19 07:43:48 YARN EXAMINER SKEINS by Jese Vilchis
[2019-02-14 08:27] LABS: Blood Morphology Comment NOT SEEN (NOT SEEN); Platelet Estimate ADEQ
--- NOTE | 2019-02-14 08:39 | CON ---
History Of Present Illness: Mrs. Morales has a history of paroxysmal atrial fibrillation for at least 6 months. She has been on dofetilide 250 mcg twice daily. She seems to have done fairly well. She does not notice her atrial fibrillation. She was in atrial fibrillation when she came into the hosp ital last night. She was not admitted because of the atrial fibrillation. She now seems to be in si nus rhythm. Regarding her atrial fibrillation she takes dofetilide 250 mcg b.i.d. and Xarelto 20 mg once per day. She is in the hospital because of GI difficulty. She had a day of severe vomiting abo ut a week ago, followed by 3 or 4 days of diarrhea. Both of those have resolved now. She has weakne ss, anorexia, dizziness, basically failure to thrive. Dr. Calvo is doing a workup for what might be a ctually wrong with her. Outpatient Medications: Included Trileptal, fenofibrate, rivaroxaban, dofetilide, potassium chloride , magnesium oxide, Florajen, probiotic capsules, fish oil pills, Lyrica, alendronate, and levothyroxi ne. Physical Examination: General: 5 feet 1, 173 pounds, obese, alert, oriented, pleasant, not in distress. Lungs: Clear. Heart: Regular rate and rhythm. No carotid bruit. Extremities: No edema. Distal pulses palpable, slightly diminished. Her EKG shows atrial fibrillation, left bundle-branch block. Telemetry shows sinus rhythm with PACs. We will get a repeat EKG. At this point I would not make any changes in her atrial fibrillation regimen. LETY/HARLEY Voice ID: [id number] Report ID: [id number]
[2019-02-14] MEDS: CEFTRIAXONE/SWI 1gm 1 GM/10 ML SYR IVP SCH ×2 (08:54→20:18)
[2019-02-14] MEDS: POTASSIUM CHLORIDE 20 MEQ PO SCH (09:00)
[2019-02-14] MEDS: OXCARBAZEPINE 150 MG PO SCH ×2 (09:00→17:14)
[2019-02-14] MEDS: HOME MED 1 EA UNK (Pregabalin [Lyrica*] 50 MG) PO SCH ×2 (09:00→17:11)
--- NOTE | 2019-02-14 09:38 | EKG ---
Test Date: 2019-02-14 Test Time: 08:41:33 Internal Audit Senior Manager: JACEY MEASUREMENT RESULTS: Intervals: Rate: 88 NV: 180 QRSD: 150 QT: 396 QTc: 479 [place]: P: 37 NV: 180 QRS: -50 T: 76 INTERPRETIVE STATEMENTS: Sinus rhythm with premature atrial complexes Left axis deviation Left bundle branch block Abnormal ECG Compared to ECG 02/13/2019 22:59:00 Atrial premature complex(es) now present Left-axis deviation now present Atrial fibrillation no longer present Electronically Signed On 02-14-19 09:37:54 RECEIVABLE CLERK by Jese Vilchis
[2019-02-14] MEDS ORDERED: MAGNES/ALUMIN/SIMET 30ML UCUP PO ONE (12:31)
[2019-02-14] MEDS: FENOFIBRATE 160 MG PO SCH (17:13)
[2019-02-14] MEDS: RIVAROXABAN 20 MG PO SCH (17:15)
--- NOTE | 2019-02-15 01:12 | PN ---
Date of Progress Note: 02/14/2019 History: The patient was seen this morning for followup, no new complaints or problems reported by h er except was complaining of some bloating of her abdomen. Has not had any diarrhea; in fact, has no t had any bowel movement since she was admitted to the hospital. No nausea. No vomiting since admis gianni to the hospital. Overall, she looks a little better today than yesterday. Physical Examination: Vital Signs: Reviewed. HEENT: Unremarkable. Lungs: Clear to auscultation. Heart: Heart sounds normal. Abdomen: Soft, bowel sounds normal. No guarding, rigidity, tenderness, or distention. Extremities: No leg edema. Laboratory Data: White count 16, hemoglobin 11.2, platelets 324. Sodium 136, potassium 4.1, chlorid e 99, bicarb 30, BUN 9, creatinine 0.56, glucose 120, magnesium 1.9. Impression: 1.Acute gastroenteritis. 2.Paroxysmal atrial fibrillation. 3.Chronic anticoagulation therapy. 4.Anemia. Plan: White count is still elevated. We will continue IV fluid. Continue IV antibiotic, which is c eftriaxone. We will start her on some Maalox and see how she tolerates that and how she responds to it with her bloating sensation. I will go ahead and get an abdominal ultrasound tomorrow morning. A mbulation was encouraged. We will consult Physical Therapy to help ambulate her. Last night, the cadence alexander had problem with atrial fibrillation and Cardiology consultation was requested. We will see her tomorrow for followup. We will repeat blood work tomorr ow. ROULA/MODL Voice ID: [id number] Report ID: [id number]
[2019-02-15] MEDS: MAGNES/ALUMIN/SIMET 30ML UCUP PO PRN ×2 (01:59→14:50)
[2019-02-15] MEDS: LEVOTHYROXINE 88 MCG PO SCH (06:00)
[2019-02-15 06:34] LABS: BUN Blood Urea Nitrogen 6 mg/dL (7-18); Bicarbonate 31 mmol/L (21-32); Glucose Level 107 mg/dL (74-106); Magnesium 2.1 mg/dL (1.8-2.4); Potassium 4.1 mmol/L (3.5-5.1); Sodium Level 141 mmol/L (136-145)
[2019-02-15 06:39] LABS: Absolute Lymphocytes (CBC) 1.2 K/uL (0.7-4.9); Basophils % 0.1 % (0-1.3); Hematocrit 33.2 % (36.0-45.0); Lymphocytes % 8.2 % (15.3-44.8); MPV 9.1 fL (7.6-11.3); RBC Red Blood Cell Count 3.79 M/uL (3.86-4.86)
[2019-02-15] MEDS: NA CHLORIDE 0.9% 1,000 ML IV SCH ×3 (08:00→19:34)
[2019-02-15] MEDS: OXCARBAZEPINE 150 MG PO SCH ×2 (09:13→17:05)
[2019-02-15] MEDS: HOME MED 1 EA UNK (Pregabalin [Lyrica*] 50 MG) PO SCH ×2 (09:15→17:06)
[2019-02-15] MEDS: CEFTRIAXONE/SWI 1gm 1 GM/10 ML SYR IVP SCH ×2 (09:15→20:13)
[2019-02-15] MEDS: POTASSIUM CHLORIDE 20 MEQ PO SCH (09:15)
--- NOTE | 2019-02-15 09:28 | RAD REPORT ---
EXAM DESCRIPTION: US - Abdomen Exam Complete - 02/15/2019 8:59 am CLINICAL HISTORY: bloating COMPARISON: No comparisons FINDINGS: Gallbladder is not identified and is believed to be surgically absent. No mass or abnormal fluid collection in the gallbladder fossa. A tightly contracted gallbladder is a lesser consideratio n. Common bile duct is normal with no common duct stone identified. Liver is normal in size with no f ocal liver parenchymal lesions seen. Mild increased echogenicity of the liver parenchyma is nonspecif ic. No splenomegaly or focal splenic finding. The pancreas is normal. No hydronephrosis or suspicious mass in either kidney. Aorta is normal is size. No ascites or bulky lymphadenopathy. IMPRESSION: Mildly increased hepatic parenchymal echogenicity with no focal liver lesions seen. Mini bora is nonspecific. Gallbladder is not identified and presumed surgically absent. No abnormal biliary tree dilatation.
[2019-02-15 09:47] VITALS: O2SAT 95
[2019-02-15 13:12] LABS: C.diff Antigen/Toxin Ag neg : Tox neg (NEG : NEG)
[2019-02-15] MEDS: FENOFIBRATE 160 MG PO SCH (17:04)
[2019-02-15] MEDS: RIVAROXABAN 20 MG PO SCH (17:04)
--- NOTE | 2019-02-16 02:29 | PN ---
Date of Progress Note: 02/15/2019 Subjective: Patient was seen this morning for followup. No new complaints or problems reported by tammy bell. Sitting in chair. Denies any diarrhea, had 1 bowel movement with well-formed stool as she r eports. No nausea, no vomiting. Bloating is little bit better today compared to yesterday. Objective: VITAL SIGNS: Reviewed. HEENT: Unremarkable. LUNGS: Clear to auscultation. HEART: Sounds normal. ABDOMEN: Soft. Bowel sounds normal. No guarding, rigidity, tenderness, or distention. EXTREMITIES: No leg edema. Laboratory Data: White count 14.7, hemoglobin 11.3, platelets 351. Sodium 141, potassium 4.1, chlor camille 106, bicarb 31, BUN 6, creatinine 0.48, glucose 107. Impression: 1.Acute gastroenteritis. 2.Bloating. 3.Atrial fibrillation. 4.Hypertension. Plan: We will go ahead and continue current antibiotics. Ambulation was encouraged. Continue [facility] medical management. Possible discharge to go home tomorrow. Abdominal ultrasound was negative fo r any acute changes. ROULA/MODL Voice ID: [id number] Report ID: [id number]
[2019-02-16] MEDS: MAGNES/ALUMIN/SIMET 30ML UCUP PO PRN (02:40)
[2019-02-16] MEDS: NA CHLORIDE 0.9% 1,000 ML IV SCH ×3 (04:00→05:10)
[2019-02-16] MEDS: LEVOTHYROXINE 88 MCG PO SCH (06:01)
[2019-02-16 07:01] LABS: Basophils % 0.4 % (0-1.3); Hematocrit 31.6 % (36.0-45.0); Lymphocytes % 9.1 % (15.3-44.8); MPV 8.1 fL (7.6-11.3)
[2019-02-16 07:14] LABS: BUN Blood Urea Nitrogen 5 mg/dL (7-18); Bicarbonate 30 mmol/L (21-32); Glucose Level 107 mg/dL (74-106); Magnesium 2.2 mg/dL (1.8-2.4); Potassium 4.1 mmol/L (3.5-5.1); Sodium Level 138 mmol/L (136-145)
[2019-02-16] MEDS: CEFTRIAXONE/SWI 1gm 1 GM/10 ML SYR IVP SCH (08:38)
[2019-02-16] MEDS: POTASSIUM CHLORIDE 20 MEQ PO SCH (08:41)
[2019-02-16] MEDS: HOME MED 1 EA UNK (Pregabalin [Lyrica*] 50 MG) PO SCH (08:48)
[2019-02-16] MEDS: OXCARBAZEPINE 150 MG PO SCH (08:49)
[2019-02-16 09:50] VITALS: BP 151/67
[2019-02-16 09:59] LABS: Blood Morphology Comment NOT SEEN (NOT SEEN); Platelet Estimate ADEQ; Urine White Blood Cell Casts OK
[2019-02-16 12:12] VITALS: TEMP 97.8
--- NOTE | 2019-02-17 04:08 | DS ---
Date of Discharge: 02/16/2019 Disposition: Discharged to go home. Physical Examination: HEENT: Unremarkable. Lungs: Clear to auscultation. Heart: Heart sounds normal. Abdomen: Soft, bowel sounds normal. No guarding, rigidity, tenderness, or distention. Extremities: No leg edema. Discharge Medications And Instructions: 1.Continue all prior home medications. 2.Take cefuroxime 250 mg p.o. 2 times a day for 1 week. 3.Follow up at my office during week of 02/26/2019. 4.Patient to use Maalox 15 mL p.o. q.6 hours p.r.n. for bloating, heartburn, indigestion type of sym ptoms. Hospital Course: Ms. Morales is an 83-year-old pleasant female patient, admitted to the hospital with nausea, vomiting, diarrhea, and feeling very weak. Please see dictated H and P for more information . Patient was sick at home for almost a week, but did not seek any medical attention until the day o f admission. She came to see me with her daughter and after she was evaluated she was admitted to [facility]. Patient had acute gastroenteritis. She was given IV fluid, IV antibiotic, ceftriaxone w as started. Her home medications were continued. It was requested from Dr. Vilchis and he did not gee ve to make any adjustment on her antiarrhythmic medications. We monitored her blood count, electroly jl. Physical Therapy was consulted and the patient started ambulating well with the therapy. Her a ppetite is improving. Patient has not had any diarrhea since admission to the hospital. No vomiting . She had some bloating type of feeling. Abdominal ultrasound was unremarkable. Gallbladder appear ed to be contracted. She does not have any abdominal pain or tenderness. She has remained afebrile, hemodynamically stable, and her white count has almost normalized now. Patient will be discharged t o go home in stable condition with above-mentioned medications and instructions. Final Diagnoses: 1.Acute gastroenteritis. 2.Volume depletion. 3.Chronic atrial fibrillation. 4.Chronic anticoagulation therapy. 5.Hypertension. 6.Impaired fasting glucose. 7.Mixed hyperlipidemia. 8.Diverticulosis. 9.Pulmonary hypertension. 10.Hypothyroidism. 11.Osteopenia. ROULA/MODL Voice ID: [id number] Report ID: [id number]
== END 2019-02-16 13:37 | disposition home or self-care (01) | DRG 392 ==
LOC: 2ND 15:34
PROVIDERS: ADMIT Internal Medicine; ATTEND Internal Medicine
DX: K52.9 Noninfective gastroenteritis and colitis, unspecified (principal); I48.20 Chronic atrial fibrillation, unspecified; E86.9 Volume depletion, unspecified; I10 Essential (primary) hypertension; R73.01 Impaired fasting glucose; E78.2 Mixed hyperlipidemia; K57.90 Diverticulosis of intestine, part unspecified, without perforation or abscess without bleeding; I27.20 Pulmonary hypertension, unspecified; E03.9 Hypothyroidism, unspecified; M85.80 Other specified disorders of bone density and structure, unspecified site; I44.7 Left bundle-branch block, unspecified; Z79.01 Long term (current) use of anticoagulants
CPT/HCPCS: 36415; 76700; 80048; 80053; 81003; 83735; 84439; 84443; 85025; 87045; 87046; 87324; 87449; 93005; 97112; 97116; 97161; 97530; J0696; J7030

== ENCOUNTER 2022-08-27 08:23 | Emergency (ER) | payer OTHER, MEDICARE ==
--- OUTSIDE RECORDS SUMMARY | 2022-08-27 08:34 | XMS REPORT | Continuity of Care Document ---
:1935 Author Organization [facility] t Address [address] [place] [address] Care Team Providers Name Role Phone Mike Calvo Yariel Primary Care Physician Doctor Unassigned, [place] Attending Clinician Unavailable RAJINDER SOTELO Attending Clinician Unavailable RAJINDER SOTELO Attending Clinician Unavailable Rajinder Sotelo MD Attending Clinician Payers Payer Name Policy Type Policy Number Effective Date Expiration Date S ource Problems Condition Condition Condition Status Onset Resolution Last Treating Co mments Source Name Details Category Date Date Treatment Clinician Date Atrial Atrial Disease Active Methodi fibrillati fibrillati [facility] on with on with 00:00: Hospita RVR RVR 00 l 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 ICD10 Diagnosis Term Vc++ Developer Utility Allergies, Adverse Reactions, Alerts Allergy Allergy Status Severity Reaction(s) Onset Inactive Treating Comm ents Source Name Type Date Date Clinician Alvarado Levine Active Other (See States Me thodi perazine ty to Comments) 03-[address] adverse 00:00: like her Hospita reaction 00 head was l s to rolling drug around. Meperidi Propensi Active Itching Metho di ne ty to 16 st adverse 00:00: Hospita reaction 00 l s to drug Prochlor Propensi Active Dizziness 2010-03 Uni vers perazine ty to 03-14 ity of Edisylat adverse 00:00: [place] e reaction 00 Medical s Branch Meperidi Propensi Active Itching 2010-03 Unive rs ne Hcl ty to 03-14 ity of adverse 00:00: [place] reaction 00 Medical s Branch PROCHLOR DRUG Active Dizziness 2010-03 Unive rs PERAZINE INGREDI 03-14 ity of EDISYLAT 00:00: [place] E 00 Medical Branch MEPERIDI DRUG Active ITCHING 2010-03 Univers NE HCL INGREDI 03-14 ity of 00:00: [place] [address] [facility] Social History Social Habit Start Date Stop Date Quantity Comments Source Gender identity [facility] Sexual orientation Method [facility] History of Social 2018-11-01 2018-11-[address] function 00:00:00 00:00:00 Hospital Alcohol intake 2018-03-29 2018-03-29 Current [facility] 00:00:00 00:00:00 non-drinker of Hospital alcohol (finding) Tobacco use and 2011-01-12 2011-01-12 Never used [facility] y of exposure 00:00:00 00:00:00 [facility] Sex Assigned At [birth year] [facility] 00:00:00 00:00:00 Hospital Smoking Status Start Date Stop Date Source Never smoker [facility] Medications Ordered Filled Start Stop Current Ordering Indication Dosage Frequency Signature Comments Components Source Medication Medication Date Date Medication? Clinician (SIG) Name Name pregabalin Yes [id number] 50mg Take 1 U nivers (LYRICA) 50 3-22 capsule by [place] mg capsule [place] ([place] Medical times Branch daily. pregabalin 0 Yes [id number] 50mg Take 1 U nivers (LYRICA) 50 3-22 capsule by it y [place] mg capsule 00:00: [place] (three) Medical times Branch daily. pregabalin 2021-0 Yes [id number] 50mg Take 1 U nivers (LYRICA) 50 3-16 capsule by it y [place] mg capsule 00:00: [place] (three) Medical times Branch daily. pregabalin 0 Yes [id number] 50mg Take 1 U nivers (LYRICA) 50 3-16 capsule by it y of mg capsule 00:00: [place] (three) Medical times Branch daily. OXCARBAZEPI 2022-0 Yes 150mg TAKE 1 Uni vers NE 150 mg 2-03 TABLET BY ity o f tablet 00:00: MOUTH 2 00 (TWO) Medical TIMES Branch DAILY. OXCARBAZEPI 2022-0 Yes 150mg TAKE 1 Uni vers NE 150 mg 2-03 TABLET BY ity o f tablet 00:00: MOUTH 2 00 (TWO) Medical TIMES Branch DAILY. OXCARBAZEPI 2022-0 Yes 150mg TAKE 1 Uni vers NE 150 mg 2-03 TABLET BY ity o f tablet 00:00: MOUTH 2 00 (TWO) Medical TIMES Branch DAILY. OXCARBAZEPI 2022-0 Yes 150mg TAKE 1 Uni vers NE 150 mg 2-03 TABLET BY ity o f tablet 00:00: MOUTH 2 00 (TWO) Medical TIMES Branch DAILY. OXCARBAZEPI 2022-0 Yes 150mg TAKE 1 Uni vers NE 150 mg 2-03 TABLET BY ity o f tablet 00:00: MOUTH 2 00 (TWO) Medical TIMES Branch DAILY. pregabalin 2020-03 Yes [id number] 50mg Take 1 U nivers (LYRICA) 50 1-12 capsule by it y of mg capsule 00:00: [place] (three) Medical times Branch daily. pregabalin 2020-03 Yes [id number] 50mg Take 1 U nivers (LYRICA) 50 1-12 capsule by it y of mg capsule 00:00: [place] (three) Medical times Branch daily. pregabalin 2020-03- No [id number] 50mg Take 1 Univers (LYRICA) 50 -02 13-16 capsule by i ty of mg capsule 00:00: 00:00 mouth 3 [place] as 00 :00 (three) Medical times Branch daily. pregabalin 2020-03- No [id number] 50mg Take 1 Univers (LYRICA) 50 -02 13-16 capsule by i ty of mg capsule 00:00: 00:00 mouth 3 [place] as 00 :00 (three) Medical times Branch daily. pregabalin 2020-03- No [id number] 50mg Take 1 Univers (LYRICA) 50 1-12 03-16 capsule by i ty of mg capsule 00:00: 00:00 mouth 3 [place] as 00 :00 (three) Medical times Branch daily. OXCARBAZEPI 2020-03 Yes 150mg TAKE 1 Uni vers NE 150 mg 1-08 TABLET BY ity o f tablet 00:00: MOUTH 2 [place] 00 (TWO) Medical TIMES Branch DAILY. OXCARBAZEPI 2020-03 Yes 150mg TAKE 1 Uni vers NE 150 mg 1-08 TABLET BY ity o f tablet 00:00: MOUTH 2 [place] 00 (TWO) Medical TIMES Branch DAILY. OXCARBAZEPI 2020-03- No 150mg TAKE 1 Un hi NE 150 mg 1-08 02-03 TABLET BY ity of tablet 00:00: 00:00 MOUTH 2 [place] 00 :00 (TWO) Medical TIMES Branch DAILY. OXcarbazepi Yes 150mg Take 1 Uni vers ne 7-29 tablet by ity of (TRILEPTAL) 00:00: mouth 2 [place] as 150 mg 00 (two) Medical tablet times Branch daily. OXcarbazepi 0 2020- No 150mg Take 1 Un hi ne 7-29 11-08 tablet by ity of (TRILEPTAL) 00:00: 00:00 mouth 2 [place] 150 mg 00 :00 (two) Medical tablet times Branch daily. PREGABALIN 2020-0 Yes [id number] TAKE 1 U nivers 50 mg 7-12 CAPSULE BY ity of capsule 00:00: MOUTH 3 [place] 00 TIMES Medical DAILY Branch PREGABALIN 2020-0 Yes [id number] TAKE 1 U nivers 50 mg 7-12 CAPSULE BY ity of capsule 00:00: MOUTH 3 [place] 00 TIMES Medical DAILY Branch PREGABALIN 2020-0 Yes [id number] TAKE 1 U nivers 50 mg 7-12 CAPSULE BY ity of capsule 00:00: MOUTH 3 [place] 00 TIMES Medical DAILY Branch PREGABALIN 2020-0 2020- No [id number] TAKE 1 Univers 50 mg 7-12 11-12 CAPSULE BY ity of capsule 00:00: 00:00 MOUTH 3 [place] 00 :00 TIMES Medical DAILY Branch PREGABALIN 2020-0 202- No [id number] TAKE 1 Univers 50 mg 7-12 11-12 CAPSULE BY ity of capsule 00:00: 00:00 MOUTH 3 [place] 00 :00 TIMES Medical DAILY Branch OXcarbazepi 2020-0 Yes 150mg Take 1 Uni vers ne 6-28 tablet by ity of (TRILEPTAL) 00:00: mouth 2 [place] as 150 mg 00 (two) Medical tablet times Branch daily. OXcarbazepi 2020-0 Yes 150mg Take 1 Uni vers ne 6-28 tablet by ity of (TRILEPTAL) 00:00: mouth 2 [place] as 150 mg 00 (two) Medical tablet times Branch daily. OXcarbazepi 2020-0 2020- No 150mg Take 1 Un hi ne 6-28 07-29 tablet by ity of (TRILEPTAL) 00:00: 00:00 mouth 2 [place] 150 mg 00 :00 (two) Medical tablet times Branch daily. levothyroxi 0 Yes 88ug Take 88 Uni vers ne 6-07 mcg by ity of (SYNTHROID) 15:11: mouth [place] 88 mcg 21 daily. Medical tablet Branch vitamin Yes 1000ug Take 1,000 Un hi B-12 6-07 mcg by ity of (VITAMIN 15:11: mouth [place] B-12) 1,000 21 daily. Medica l mcg tablet Branch alendronate Yes 70mg Take 70 mg Univers 70 mg 6-07 by mouth ity of tablet 15:11: weekly. [place] 21 Medical Branch rivaroxaban 0 Yes Take by Uni vers (XARELTO) 6-07 mouth. ity of 20 mg 15:11: [place] tablet 21 Medical Branch Fenofibrate Yes 1{tbl} Take 1 Un hi 160 mg 6-07 tablet by ity of tablet 15:11: mouth [place] 21 every Medical evening. Branch dofetilide 0 Yes 250ug Take 250 Un hi 250 mcg 6-07 mcg by ity of capsule 15:11: mouth [place] 21 every 12 Medical (twelve) Branch hours. levothyroxi 2020-0 Yes 88ug Take 88 Uni vers ne 6-07 mcg by ity of (SYNTHROID) 15:11: mouth [place] 88 mcg 21 daily. Medical tablet Branch vitamin 2020-0 Yes 1000ug Take 1,000 Un hi B-12 6-07 mcg by ity of (VITAMIN 15:11: mouth [place] B-12) 1,000 21 daily. Medica l mcg tablet Branch alendronate Yes 70mg Take 70 mg Univers 70 mg 6-07 by mouth ity of tablet 15:11: weekly. [place] 21 Medical Branch rivaroxaban 0 Yes Take by Uni vers (XARELTO) 6-07 mouth. ity of 20 mg 15:11: [place] tablet 21 Medical Branch Fenofibrate Yes 1{tbl} Take 1 Un hi 160 mg 6-07 tablet by ity of tablet 15:11: mouth [place] 21 every Medical evening. Branch dofetilide Yes 250ug Take 250 Un hi 250 mcg 6-07 mcg by ity of capsule 15:11: mouth [place] 21 every 12 Medical (twelve) Branch hours. levothyroxi 0 Yes 88ug Take 88 Uni vers ne 6-07 mcg by ity of (SYNTHROID) 15:11: mouth [place] 88 mcg 21 daily. Medical tablet Branch vitamin Yes 1000ug Take 1,000 Un hi B-12 6-07 mcg by ity of (VITAMIN 15:11: mouth [place] B-12) 1,000 21 daily. Medica l mcg tablet Branch alendronate Yes 70mg Take 70 mg Univers 70 mg 6-07 by mouth ity of tablet 15:11: weekly. [place] 21 Medical Branch rivaroxaban 0 Yes Take by Uni vers (XARELTO) 6-07 mouth. ity of 20 mg 15:11: [place] tablet 21 Medical Branch Fenofibrate Yes 1{tbl} Take 1 Un hi 160 mg 6-07 tablet by ity of tablet 15:11: mouth [place] 21 every Medical evening. Branch dofetilide Yes 250ug Take 250 Un hi 250 mcg 6-07 mcg by ity of capsule 15:11: mouth [place] 21 every 12 Medical (twelve) Branch hours. levothyroxi 0 Yes 88ug Take 88 Uni vers ne 6-07 mcg by ity of (SYNTHROID) 15:11: mouth [place] 88 mcg 21 daily. Medical tablet Branch vitamin 2020-0 Yes 1000ug Take 1,000 Un hi B-12 6-07 mcg by ity of (VITAMIN 15:11: mouth [place] B-12) 1,000 21 daily. Medica l mcg tablet Branch alendronate Yes 70mg Take 70 mg Univers 70 mg 6-07 by mouth ity of tablet 15:11: weekly. [place] 21 Medical Branch rivaroxaban 0 Yes Take by Uni vers (XARELTO) 6-07 mouth. ity of 20 mg 15:11: [place] tablet 21 Medical Branch Fenofibrate Yes 1{tbl} Take 1 Un hi 160 mg 6-07 tablet by ity of tablet 15:11: mouth [place] 21 every Medical evening. Branch dofetilide Yes 250ug Take 250 Un hi 250 mcg 6-07 mcg by ity of capsule 15:11: mouth [place] 21 every 12 Medical (twelve) Branch hours. levothyroxi 0 Yes 88ug Take 88 Uni vers ne 6-07 mcg by ity of (SYNTHROID) 15:11: mouth [place] 88 mcg 21 daily. Medical tablet Branch vitamin Yes 1000ug Take 1,000 Un hi B-12 6-07 mcg by ity of (VITAMIN 15:11: mouth [place] B-12) 1,000 21 daily. Medica l mcg tablet Branch alendronate Yes 70mg Take 70 mg Univers 70 mg 6-07 by mouth ity of tablet 15:11: weekly. [place] 21 Medical Branch rivaroxaban 0 Yes Take by Uni vers (XARELTO) 6-07 mouth. ity of 20 mg 15:11: [place] tablet 21 Medical Branch Fenofibrate Yes 1{tbl} Take 1 Un hi 160 mg 6-07 tablet by ity of tablet 15:11: mouth [place] 21 every Medical evening. Branch dofetilide Yes 250ug Take 250 Un hi 250 mcg 6-07 mcg by ity of capsule 15:11: mouth [place] 21 every 12 Medical (twelve) Branch hours. levothyroxi 0 Yes 88ug Take 88 Uni vers ne 6-07 mcg by ity of (SYNTHROID) 15:11: mouth [place] 88 mcg 21 daily. Medical tablet Branch vitamin 0 Yes 1000ug Take 1,000 Un hi B-12 6-07 mcg by ity of (VITAMIN 15:11: mouth [place] B-12) 1,000 21 daily. Medica l mcg tablet Branch alendronate Yes 70mg Take 70 mg Univers 70 mg 6-07 by mouth ity of tablet 15:11: weekly. [place] 21 Medical Branch rivaroxaban 0 Yes Take by Uni vers (XARELTO) 6-07 mouth. ity of 20 mg 15:11: [place] tablet 21 Medical Branch Fenofibrate Yes 1{tbl} Take 1 Un hi 160 mg 6-07 tablet by ity of tablet 15:11: mouth [place] 21 every Medical evening. Branch dofetilide Yes 250ug Take 250 Un hi 250 mcg 6-07 mcg by ity of capsule 15:11: mouth [place] 21 every 12 Medical (twelve) Branch hours. levothyroxi 0 Yes 88ug Take 88 Uni vers ne 6-07 mcg by ity of (SYNTHROID) 15:11: mouth [place] 88 mcg 21 daily. Medical tablet Branch vitamin Yes 1000ug Take 1,000 Un hi B-12 6-07 mcg by ity of (VITAMIN 15:11: mouth [place] B-12) 1,000 21 daily. Medica l mcg tablet Branch alendronate Yes 70mg Take 70 mg Univers 70 mg 6-07 by mouth ity of tablet 15:11: weekly. [place] 21 Medical Branch rivaroxaban Yes Take by Uni vers (XARELTO) 6-07 mouth. ity of 20 mg 15:11: [place] tablet 21 Medical Branch Fenofibrate Yes 1{tbl} Take 1 Un hi 160 mg 6-07 tablet by ity of tablet 15:11: mouth [place] 21 every Medical evening. Branch dofetilide Yes 250ug Take 250 Un hi 250 mcg 6-07 mcg by ity of capsule 15:11: mouth [place] 21 every 12 Medical (twelve) Branch hours. levothyroxi 0 Yes 88ug Take 88 Uni vers ne 6-07 mcg by ity of (SYNTHROID) 15:11: mouth [place] 88 mcg 21 daily. Medical tablet Branch vitamin 0 Yes 1000ug Take 1,000 Un hi B-12 6-07 mcg by ity of (VITAMIN 15:11: mouth [place] B-12) 1,000 21 daily. Medica l mcg tablet Branch alendronate Yes 70mg Take 70 mg Univers 70 mg 6-07 by mouth ity of tablet 15:11: weekly. [place] 21 Medical Branch rivaroxaban 0 Yes Take by Uni vers (XARELTO) 6-07 mouth. ity of 20 mg 15:11: [place] tablet 21 Medical Branch Fenofibrate Yes 1{tbl} Take 1 Un hi 160 mg 6-07 tablet by ity of tablet 15:11: mouth [place] 21 every Medical evening. Branch dofetilide Yes 250ug Take 250 Un hi 250 mcg 6-07 mcg by ity of capsule 15:11: mouth [place] 21 every 12 Medical (twelve) Branch hours. levothyroxi 0 Yes 88ug Take 88 Uni vers ne 6-07 mcg by ity of (SYNTHROID) 10:11: mouth [place] 88 mcg 21 daily. Medical tablet Branch vitamin Yes 1000ug Take 1,000 Un hi B-12 6-07 mcg by ity of (VITAMIN 10:11: mouth [place] B-12) 1,000 21 daily. Medica l mcg tablet Branch alendronate Yes 70mg Take 70 mg Univers 70 mg 6-07 by mouth ity of tablet 10:11: weekly. [place] 21 Medical Branch rivaroxaban Yes Take by Uni vers (XARELTO) 6-07 mouth. ity of 20 mg 10:11: [place] tablet 21 Medical Branch Fenofibrate Yes 1{tbl} Take 1 Un hi 160 mg 6-07 tablet by ity of tablet 10:11: mouth [place] 21 every Medical evening. Branch dofetilide Yes 250ug Take 250 Un hi 250 mcg 6-07 mcg by ity of capsule 10:11: mouth [place] 21 every 12 Medical (twelve) Branch hours. levothyroxi 0 Yes 88ug Take 88 Uni vers ne 6-07 mcg by ity of (SYNTHROID) 10:11: mouth [place] 88 mcg 21 daily. Medical tablet Branch vitamin 0 Yes 1000ug Take 1,000 Un hi B-12 6-07 mcg by ity of (VITAMIN 10:11: mouth [place] B-12) 1,000 21 daily. Medica l mcg tablet Branch alendronate Yes 70mg Take 70 mg Univers 70 mg 6-07 by mouth ity of tablet 10:11: weekly. [place] 21 Medical Branch rivaroxaban 0 Yes Take by Uni vers (XARELTO) 6-07 mouth. ity of 20 mg 10:11: [place] tablet 21 Medical Branch Fenofibrate Yes 1{tbl} Take 1 Un hi 160 mg 6-07 tablet by ity of tablet 10:11: mouth [place] 21 every Medical evening. Branch dofetilide Yes 250ug Take 250 Un hi 250 mcg 6-07 mcg by ity of capsule 10:11: mouth [place] 21 every 12 Medical (twelve) Branch hours. levothyroxi 0 Yes 88ug Take 88 Uni vers ne 6-07 mcg by ity of (SYNTHROID) 10:11: mouth [place] 88 mcg 21 daily. Medical tablet Branch vitamin Yes 1000ug Take 1,000 Un hi B-12 6-07 mcg by ity of (VITAMIN 10:11: mouth [place] B-12) 1,000 21 daily. Medica l mcg tablet Branch alendronate Yes 70mg Take 70 mg Univers 70 mg 6-07 by mouth ity of tablet 10:11: weekly. [place] 21 Medical Branch rivaroxaban 0 Yes Take by Uni vers (XARELTO) 6-07 mouth. ity of 20 mg 10:11: [place] tablet 21 Medical Branch Fenofibrate Yes 1{tbl} Take 1 Un hi 160 mg 6-07 tablet by ity of tablet 10:11: mouth [place] 21 every Medical evening. Branch dofetilide Yes 250ug Take 250 Un hi 250 mcg 6-07 mcg by ity of capsule 10:11: mouth [place] 21 every 12 Medical (twelve) Branch hours. levothyroxi 0 Yes 88ug Take 88 Uni vers ne 6-07 mcg by ity of (SYNTHROID) 10:11: mouth [place] 88 mcg 21 daily. Medical tablet Branch vitamin 0 Yes 1000ug Take 1,000 Un hi B-12 6-07 mcg by ity of (VITAMIN 10:11: mouth [place] B-12) 1,000 21 daily. Medica l mcg tablet Branch alendronate Yes 70mg Take 70 mg Univers 70 mg 6-07 by mouth ity of tablet 10:11: weekly. [place] 21 Medical Branch rivaroxaban Yes Take by Uni vers (XARELTO) 6-07 mouth. ity of 20 mg 10:11: [place] tablet 21 Medical Branch Fenofibrate 0 Yes 1{tbl} Take 1 Un hi 160 mg 6-07 tablet by ity of tablet 10:11: mouth [place] 21 every Medical evening. Branch dofetilide Yes 250ug Take 250 Un hi 250 mcg 6-07 mcg by ity of capsule 10:11: mouth [place] 21 every 12 Medical (twelve) Branch hours. levothyroxi 0 Yes 88ug Take 88 Uni vers ne 6-07 mcg by ity of (SYNTHROID) 10:11: mouth [place] 88 mcg 21 daily. Medical tablet Branch vitamin Yes 1000ug Take 1,000 Un hi B-12 6-07 mcg by ity of (VITAMIN 10:11: mouth [place] B-12) 1,000 21 daily. Medica l mcg tablet Branch alendronate Yes 70mg Take 70 mg Univers 70 mg 6-07 by mouth ity of tablet 10:11: weekly. [place] 21 Medical Branch rivaroxaban Yes Take by Uni vers (XARELTO) 6-07 mouth. ity of 20 mg 10:11: [place] tablet 21 Medical Branch Fenofibrate Yes 1{tbl} Take 1 Un hi 160 mg 6-07 tablet by ity of tablet 10:11: mouth [place] 21 every Medical evening. Branch dofetilide Yes 250ug Take 250 Un hi 250 mcg 6-07 mcg by ity of capsule 10:11: mouth [place] 21 every 12 Medical (twelve) Branch hours. levothyroxi 0 Yes 88ug Take 88 Uni vers ne 6-07 mcg by ity of (SYNTHROID) 10:11: mouth [place] 88 mcg 21 daily. Medical tablet Branch vitamin 0 Yes 1000ug Take 1,000 Un hi B-12 6-07 mcg by ity of (VITAMIN 10:11: mouth [place] B-12) 1,000 21 daily. Medica l mcg tablet Branch alendronate Yes 70mg Take 70 mg Univers 70 mg 6-07 by mouth ity of tablet 10:11: weekly. [place] [address] Medical Branch rivaroxaban Yes Take by Uni vers (XARELTO) 6-07 mouth. ity of 20 mg 10:11: [place] tablet 21 Medical Branch Fenofibrate Yes 1{tbl} Take 1 Un hi 160 mg 6-07 tablet by ity of tablet 10:11: mouth [place] 21 every Medical evening. Branch dofetilide 0 Yes 250ug Take 250 Un hi 250 mcg 6-07 mcg by ity of capsule 10:11: mouth [place] 21 every 12 Medical (twelve) Branch hours. levothyroxi 0 Yes 88ug Take 88 Uni vers ne 6-07 mcg by ity of (SYNTHROID) 10:11: mouth [place] 88 mcg 21 daily. Medical tablet Branch vitamin 0 Yes 1000ug Take 1,000 Un hi B-12 6-07 mcg by ity of (VITAMIN 10:11: mouth [place] B-12) 1,000 21 daily. Medica l mcg tablet Branch alendronate Yes 70mg Take 70 mg [facility] 70 mg 6-07 by mouth ity of tablet 10:11: weekly. [place] [address] Medical Branch rivaroxaban Yes Take by Uni vers (XARELTO) 6-07 mouth. ity of 20 mg 10:11: [place] tablet 21 Medical Branch Fenofibrate Yes 1{tbl} Take 1 Un hi 160 mg 6-07 tablet by ity of tablet 10:11: mouth [place] 21 every Medical evening. Branch dofetilide Yes 250ug Take 250 Un hi 250 mcg 6-07 mcg by ity of capsule 10:11: mouth [place] 21 every 12 Medical (twelve) Branch hours. OXcarbazepi 2020-0 Yes 150mg Take 1 Uni vers ne 5-24 tablet by ity of (TRILEPTAL) 00:00: mouth 2 [place] 150 mg 00 (two) Medical tablet times Branch daily. OXcarbazepi 2020-0 Yes 150mg Take 1 Uni vers ne 5-24 tablet by ity of (TRILEPTAL) 00:00: mouth 2 [place] 150 mg 00 (two) Medical tablet times Branch daily. OXcarbazepi 2020-0 Yes 150mg Take 1 Uni vers ne 5-24 tablet by ity of (TRILEPTAL) 00:00: mouth 2 [place] 150 mg 00 (two) Medical tablet times Branch daily. OXcarbazepi 2021-0 Yes 150mg Take 1 Uni vers ne 5-24 tablet by ity of (TRILEPTAL) 00:00: mouth 2 [place] 150 mg 00 (two) Medical tablet times Branch daily. OXcarbazepi 2021-0 Yes 150mg Take 1 Uni vers ne 5-24 tablet by ity of (TRILEPTAL) 00:00: mouth 2 [place] 150 mg 00 (two) Medical tablet times Branch daily. OXcarbazepi 2021-0 2021- No 150mg Take 1 Un hi ne 5-24 06-28 tablet by ity of (TRILEPTAL) 00:00: 00:00 mouth 2 [place] 150 mg 00 :00 (two) Medical tablet times Branch daily. OXcarbazepi 2021-0 Yes 150mg Take 1 Uni vers ne 4-28 tablet by ity of (TRILEPTAL) 00:00: mouth 2 [place] 150 mg 00 (two) Medical tablet times Branch daily. OXcarbazepi 2021-0 2021- No 150mg Take 1 Un hi ne 4-28 05-24 tablet by ity of (TRILEPTAL) 00:00: 00:00 mouth 2 [place] 150 mg 00 :00 (two) Medical tablet times Branch daily. OXcarbazepi 2021-0 Yes 150mg Take 1 Uni vers ne 4-02 tablet by ity of (TRILEPTAL) 00:00: mouth 2 [place] 150 mg 00 (two) Medical tablet times Branch daily. OXcarbazepi 2021-0 2021- No 150mg Take 1 Un hi ne 4-02 04-28 tablet by ity of (TRILEPTAL) 00:00: 00:00 mouth 2 [place] 150 mg 00 :00 (two) Medical tablet times Branch daily. pregabalin 2021-0 Yes [id number] 50mg Take 1 U nivers (LYRICA) 50 2-12 capsule by it y of mg capsule 00:00: mouth 3 [place] (three) Medical times Branch daily. pregabalin 2021-0 Yes [id number] 50mg Take 1 U nivers (LYRICA) 50 2-12 capsule by it y of mg capsule 00:00: mouth 3 [place] (three) Medical times Branch daily. pregabalin 1-0 Yes [id number] 50mg Take 1 U nivers (LYRICA) 50 2-12 capsule by it y of mg capsule 00:00: mouth 3 [place] 00 (three) Medical times Branch daily. pregabalin 2020-0 Yes [id number] 50mg Take 1 U nivers (LYRICA) 50 2-12 capsule by it y of mg capsule 00:00: mouth 3 [place] 00 (three) Medical times Branch daily. pregabalin 2020-0 Yes [id number] 50mg Take 1 U nivers (LYRICA) 50 2-12 capsule by it y of mg capsule 00:00: mouth 3 [place] 00 (three) Medical times Branch daily. pregabalin 2020-0 Yes [id number] 50mg Take 1 U nivers (LYRICA) 50 2-12 capsule by it y of mg capsule 00:00: mouth 3 [place] 00 (three) Medical times Branch daily. pregabalin 2020-0 Yes [id number] 50mg Take 1 U nivers (LYRICA) 50 2-12 capsule by it y of mg capsule 00:00: mouth 3 [place] 00 (three) Medical times Branch daily. pregabalin 2020-0 Yes [id number] 50mg Take 1 U nivers (LYRICA) 50 2-12 capsule by it y of mg capsule 00:00: mouth 3 [place] 00 (three) Medical times Branch daily. pregabalin 2020-0 Yes [id number] 50mg Take 1 U nivers (LYRICA) 50 2-12 capsule by it y of mg capsule 00:00: mouth 3 [place] 00 (three) Medical times Branch daily. pregabalin 2020-0 Yes [id number] 50mg Take 1 U nivers (LYRICA) 50 2-12 capsule by it y of mg capsule 00:00: mouth 3 [place] 00 (three) Medical times Branch daily. pregabalin 2021-0 2021- No [id number] 50mg Take 1 Univers (LYRICA) 50 2-12 07-12 capsule by i ty of mg capsule 00:00: 00:00 mouth 3 [place] 00 :00 (three) Medical times Branch daily. OXcarbazepi 2021-0 Yes 150mg Take 1 Uni vers ne 1-29 tablet by ity of (TRILEPTAL) 00:00: mouth 2 [place] 150 mg 00 (two) Medical tablet times Branch daily. OXcarbazepi 2021-0 Yes 150mg Take 1 Uni vers ne 1-29 tablet by ity of (TRILEPTAL) 00:00: mouth 2 [place] 150 mg 00 (two) Medical tablet times Branch daily. OXcarbazepi 2021-0 Yes 150mg Take 1 Uni vers ne 1-29 tablet by ity of (TRILEPTAL) 00:00: mouth 2 [place] 150 mg 00 (two) Medical tablet times Branch daily. OXcarbazepi 2021-0 2021- No 150mg Take 1 Un hi ne 1-29 04-02 tablet by ity of (TRILEPTAL) 00:00: 00:00 mouth 2 [place] 150 mg 00 :00 (two) Medical tablet times Branch daily. OXcarbazepi 2020-0 Yes 150mg Take 1 Uni vers ne 9-24 tablet by ity of (TRILEPTAL) 00:00: mouth 2 [place] 150 mg 00 (two) Medical tablet times Branch daily. OXcarbazepi 2020-0 2021- No 150mg Take 1 Un hi ne 9-24 -29 tablet by ity of (TRILEPTAL) 00:00: 00:00 mouth 2 [place] 150 mg 00 :00 (two) Medical tablet times Branch daily. pregabalin 2020-0 Yes [id number] 50mg Take 1 U nivers (LYRICA) 50 8-21 capsule by it y of mg capsule 00:00: mouth 3 [place] (three) Medical times Branch daily. pregabalin 2020-0 Yes [id number] 50mg Take 1 U nivers (LYRICA) 50 8-21 capsule by it y of mg capsule 00:00: mouth 3 [place] (three) Medical times Branch daily. pregabalin 2020-0 Yes [id number] 50mg Take 1 U nivers (LYRICA) 50 8-21 capsule by it y of mg capsule 00:00: mouth 3 [place] (three) Medical times Branch daily. pregabalin 2020-0 Yes [id number] 50mg Take 1 U nivers (LYRICA) 50 8-21 capsule by it y of mg capsule 00:00: mouth 3 [place] (three) Medical times Branch daily. pregabalin 2020-0 2020- No [id number] 50mg Take 1 Univers (LYRICA) 50 8-21 02-12 capsule by i ty of mg capsule 00:00: 00:00 mouth 3 [place] 00 :00 (three) Medical times Branch daily. OXcarbazepi 2020-0 Yes 150mg Take 1 Uni vers ne 5-29 tablet by ity of (TRILEPTAL) 00:00: mouth 2 [place] 150 mg 00 (two) Medical tablet times Branch daily. OXcarbazepi 2020-0 Yes 150mg Take 1 Uni vers ne 5-29 tablet by ity of (TRILEPTAL) 00:00: mouth 2 [place] 150 mg 00 (two) Medical tablet times Branch daily. OXcarbazepi 2020-0 2019- No 150mg Take 1 Un hi ne 5-29 09-24 tablet by ity of (TRILEPTAL) 00:00: 00:00 mouth 2 [place] 150 mg 00 :00 (two) Medical tablet times Branch daily. pregabalin 2020-0 Yes [id number] 50mg Take 1 U nivers (LYRICA) 50 3-31 capsule by it y of mg [place] ([place] [facility] times [facility] daily. pregabalin 2020-0 Yes [id number] 50mg Take 1 [facility] (LYRICA) 50 3-31 capsule by it y [facility] mg capsule 00:00: [place] (three) [facility] times [facility] daily. pregabalin 2020-0 2019- No [id number] 50mg Take 1 [facility] (LYRICA) 50 3-31 08-21 capsule by i ty of mg capsule 00:00: 00:00 mouth 3 [place] 00 :00 (three) Medical times Branch daily. pregabalin 2020-0 Yes [id number] 50mg Take 1 [facility] (LYRICA) 50 1-24 capsule by [facility] [place] mg capsule 00:00: [place] (two) [facility] times [facility] daily. pregabalin 2020-0 Yes [id number] 50mg Take 1 [facility] (LYRICA) 50 1-24 capsule by [facility] mg capsule 00:00: [place] (two) [facility] times [facility] daily. pregabalin 2020- No [id number] 50mg Take 1 [facility] (LYRICA) 50 04-06 03-31 capsule by i ty of mg capsule 00:00: 00:00 mouth 2 [place] 00 :00 (two) Medical times Branch daily. OXcarbazepi 2018-03 Yes 150mg Take 1 [facility] vers ne 2-02 tablet by ity of (TRILEPTAL) 00:00: mouth 2 [place] 150 mg 00 (two) Medical tablet times Branch daily. OXcarbazepi 2018-03 Yes 150mg Take 1 [facility] vers ne 2-02 tablet by ity of (TRILEPTAL) 00:00: mouth 2 [place] 150 mg 00 (two) Medical tablet times Branch daily. OXcarbazepi 2018-03 Yes 150mg Take 1 [facility] vers ne 2-02 tablet by ity of (TRILEPTAL) 00:00: mouth 2 [place] 150 mg 00 (two) Medical tablet times Branch daily. OXcarbazepi 2018-03 2020- No 150mg Take 1 Un hi ne 2-02 05-29 tablet by ity of (TRILEPTAL) 00:00: 00:00 mouth 2 [place] 150 mg 00 :00 (two) Medical tablet times Branch daily. dofetilide Yes 250ug Take 250 Un [facility] 250 mcg 8-26 mcg by ity of capsule 20:32: mouth [place] 16 every 12 Medical (twelve) Branch hours. dofetilide Yes 250ug Take 250 Un hi 250 mcg 8-26 mcg by ity of capsule 20:32: mouth [place] 16 every 12 Medical (twelve) Branch hours. dofetilide Yes 250ug Take 250 Un hi 250 mcg 8-26 mcg by ity of capsule 20:32: mouth [place] 16 every 12 Medical (twelve) Branch hours. dofetilide 0 Yes 250ug Take 250 Un hi 250 mcg 8-26 mcg by ity of capsule 20:32: mouth [place] 16 every 12 Medical (twelve) Branch hours. dofetilide 2018-0 Yes 250ug Take 250 Un hi 250 mcg 8-26 mcg by ity of capsule 20:32: mouth [place] 16 every 12 Medical (twelve) Branch hours. dofetilide 2019-0 Yes 250ug Take 250 Un hi 250 mcg 8-26 mcg by ity of capsule 20:32: mouth [place] 16 every 12 Medical (twelve) Branch hours. dofetilide 2019-0 Yes 250ug Take 250 Un hi 250 mcg 8-26 mcg by ity of capsule 20:32: mouth [place] 16 every 12 Medical (twelve) Branch hours. dofetilide 2019-0 Yes 250ug Take 250 Un hi 250 mcg 8-26 mcg by ity of capsule 20:32: mouth [place] 16 every 12 Medical (twelve) Branch hours. dofetilide 2018-0 Yes 250ug Take 250 Un hi 250 mcg 8-26 mcg by ity of capsule 20:32: mouth [place] 16 every 12 Medical (twelve) Branch hours. dofetilide 2018-0 Yes 250ug Take 250 Un hi 250 mcg 8-26 mcg by ity of capsule 20:32: mouth [place] 16 every 12 Medical (twelve) Branch hours. dofetilide 2018-0 Yes 250ug Take 250 Un hi 250 mcg 8-26 mcg by ity of capsule 20:32: mouth [place] 16 every 12 Medical (twelve) Branch hours. dofetilide 2018- Yes 250ug Take 250 Un hi 250 mcg 8-26 mcg by ity of capsule 20:32: mouth [place] 16 every 12 Medical (twelve) Branch hours. dofetilide 2018-0 Yes 250ug Take 250 Un hi 250 mcg 8-26 mcg by ity of capsule 20:32: mouth [place] 16 every 12 Medical (twelve) Branch hours. dofetilide 2018-0 Yes 250ug Take 250 Un hi 250 mcg 8-26 mcg by ity of capsule 20:32: mouth [place] 16 every 12 Medical (twelve) Branch hours. dofetilide 2019-0 Yes 250ug Take 250 Un hi 250 mcg 8-26 mcg by ity of capsule 20:32: mouth [place] 16 every 12 Medical (twelve) Branch hours. pregabalin 2019-0 Yes [id number] 50mg Take 1 [facility] (LYRICA) 50 8-26 capsule by [facility] y [facility] mg capsule 00:00: [place] (two) [facility] times [facility] daily. pregabalin 2019-0 Yes [id number] 50mg Take 1 [facility] (LYRICA) 50 8-26 capsule by [facility] mg capsule 00:00: mouth [place] (two) [facility] times [facility] daily. pregabalin 2020- No [id number] 50mg Take 1 [facility] (LYRICA) 50 8-26 01-24 capsule by i ty of mg capsule 00:00: 00:00 mouth 2 [place] 00 :00 (two) Medical times Branch daily. OXcarbazepi 2019-0 Yes 150mg Take 1 [facility] ne 6-04 tablet by ity of (TRILEPTAL) 00:00: mouth 2 [place] 150 mg 00 (two) Medical tablet times Branch daily. OXcarbazepi 2019-0 Yes 150mg Take 1 [facility] vers ne 6-04 tablet by ity of (TRILEPTAL) 00:00: mouth 2 [place] 150 mg 00 (two) Medical tablet times Branch daily. pregabalin 2018- No 50mg Take 1 [facility] (LYRICA) 50 4-30 08-26 capsule by i ty of mg capsule 00:00: 00:00 mouth [place] 00 :00 daily. Medical Branch pregabalin 2019- No 50mg Take 1 [facility] (LYRICA) 50 4-30 08-26 capsule by i ty of mg capsule 00:00: 00:00 mouth [place] 00 :00 daily. Medical Branch levothyroxi Yes 88ug QD Take 88 [facility] ne 1-[address] (SYNTHROID, 12:39: mouth [facility] LEVOXYL) 88 49 every l mcg tablet morning. alendronate Yes 70mg Q7D Take 70 mg [facility] (FOSAMAX) 1-[address] 70 MG 12:39: once a [facility]osp[facility] tablet 49 week. (on l Tuesday) Take in the morning with a full glass of water on an empty stomach, do NOT take anything else by mouth or lie down for the next 30 min. OXcarbazepi 2019-0 Yes 150mg Q.5D Take 150 [facility] ne 1-[address] (TRILEPTAL) 12:39: mouth 2 [facility] 150 MG 49 (two) l tablet times a day. pregabalin 2018- Yes 50mg QD Take 50 mg [facility] (LYRICA) 50 1-[address] MG capsule 12:39: every Hospit a 49 morning. l Lactobacill 2019-0 Yes 1{capsu QD Take 1 M [facility] us 1-21 le} capsule by st acidophilus 12:39: mouth [facility] (FLORAJEN 49 every l ORAL) morning. docusate 2019-0 Yes 240mg QD Take 240 Meth jenny calcium 1-[address] (SURFAK) 12:39: mouth [facility] 240 mg 49 every l capsule morning. docosahexan 2019-0 Yes 1{capsu QD Take 1 M [facility]i oic 1-21 le} capsule by st acid/epa 12:39: mouth [facility] (FISH OIL 49 every l ORAL) morning. rivaroxaban 2019-0 Yes 20mg QD Take 20 mg [facility] (XARELTO) 1-[address] 20 mg 12:39: every [facility] tablet 49 evening. l fenofibrate 2018-0 Yes 160mg QD Take 160 [facility] (LOFIBRA) 1-[address] 160 MG 12:39: mouth [facility] tablet 49 every l evening. fluticasone 2018-0 Yes 2{spray QD 2 sprays [facility] (FLONASE) 1-21 } by Each st 50 12:39: Nare route [facility]osp[facility] mcg/actuati 49 nightly as l on nasal needed for spray rhinitis. biotin 1 mg 2018-0 Yes 1000ug QD Take 1,000 [facility] tablet 1-[address] 12:39: mouth [facility] 49 every l evening. travoprost 2019-0 Yes 1[drp] QD Administer [facility] (TRAVATAN-Z 1-[address] ) 0.004 % 12:39: both eyes [facility] 49 nightly. l propylene 2019-0 Yes 1[drp] Q24H Administer [facility] glycol 1-[address] (SYSTANE 12:39: both eyes [facility]osp alee BALANCE) 49 daily as l 0.6 % drops needed (for Dry Eyes). meclizine 2019-0 Yes 25mg Q.[id number] Take 25 mg [facility] (ANTIVERT) 1-[id number] mouth [address] 25 mg 12:39: 3D (three) Hospita tablet 49 times a l day as needed for dizziness. levocetiriz 2019-0 Yes 5mg QD Take 5 mg M [facility] ine (XYZAL) 1-[address] 5 MG tablet 12:39: every [facility] 49 evening. l Lactobac 2017-03 Yes Take 1 [facility] no.30/Bifid 0-25 TAB-CAP/M2 it y of obact no.4 15:12: by mouth [place] [facility] (ULTIMATE 27 daily. Medical MAYRA Branch PROBIOTIC ORAL) Lactobac 2017-03 Yes Take 1 [facility] no.30/Bifid 0-25 TAB-CAP/M2 it y of obact no.4 15:12: by mouth [place] (ULTIMATE 27 daily. Medical [facility] PROBIOTIC ORAL) Lactobac 2017-03 Yes Take 1 [facility] no.30/Bifid 0-25 TAB-CAP/M2 it y of obact no.4 15:12: by mouth [place] (ULTIMATE 27 daily. Medical MAY[facility] Branch PROBIOTIC ORAL) Lactobac 2017-03 Yes Take 1 [facility] no.30/Bifid 0-25 TAB-CAP/M2 it y of obact no.4 15:12: by mouth [place] (ULTIMATE 27 daily. Medical MAY[facility] PROBIOTIC ORAL) Lactobac 2017-03 Yes Take 1 [facility] no.30/Bifid 0-25 TAB-CAP/M2 it y of obact no.4 15:12: by mouth [place] (ULTIMATE 27 daily. Medical MAY[facility] PROBIOTIC ORAL) Lactobac 2017-03 Yes Take 1 [facility] no.30/Bifid 0-25 TAB-CAP/M2 it y of obact no.4 15:12: by mouth [place] (ULTIMATE 27 daily. Medical [facility] PROBIOTIC ORAL) Lactobac 2017-03 Yes Take 1 [facility] no.30/Bifid 0-25 TAB-CAP/M2 it y of obact no.4 15:12: by mouth [place] (ULTIMATE 27 daily. Medical [facility] PROBIOTIC ORAL) Lactobac 2017-03 Yes Take 1 [facility] no.30/Bifid 0-25 TAB-CAP/M2 it y of obact no.4 15:12: by mouth [place] (ULTIMATE 27 daily. Medical [facility] PROBIOTIC ORAL) Lactobac 2017-03 Yes Take 1 [facility] no.30/Bifid 0-25 TAB-CAP/M2 it y of obact no.4 15:12: by mouth [place] (ULTIMATE 27 daily. Medical [facility] PROBIOTIC ORAL) Lactobac 2017-03 Yes Take 1 [facility] no.30/Bifid 0-25 TAB-CAP/M2 it y of obact no.4 15:12: by mouth [place] (ULTIMATE 27 daily. Medical [facility] PROBIOTIC ORAL) Lactobac 2017-03 Yes Take 1 [facility] no.30/Bifid 0-25 TAB-CAP/M2 it y of obact no.4 15:12: by mouth [place] (ULTIMATE 27 daily. Medical [facility] PROBIOTIC ORAL) Lactobac 2017-03 Yes Take 1 [facility] no.30/Bifid 0-25 TAB-CAP/M2 it y of obact no.4 15:12: by mouth [place] (ULTIMATE 27 daily. Medical [facility] PROBIOTIC ORAL) Lactobac 2017-03 Yes Take 1 [facility] no.30/Bifid 0-25 TAB-CAP/M2 it y of obact no.4 15:12: by mouth [place] (ULTIMATE 27 daily. Medical [facility] PROBIOTIC ORAL) Lactobac 2017-03 Yes Take 1 [facility] no.30/Bifid 0-25 TAB-CAP/M2 it y of obact no.4 15:12: by mouth [place] (ULTIMATE 27 daily. Medical [facility] PROBIOTIC ORAL) Lactobac 2017-03 Yes Take 1 [facility] no.30/Bifid 0-25 TAB-CAP/M2 it y of obact no.4 15:12: by mouth [place] (ULTIMATE 27 daily. Medical [facility] PROBIOTIC ORAL) Lactobac 2017-03 Yes Take 1 [facility] no.30/Bifid 0-25 TAB-CAP/M2 it y of obact no.4 15:12: by mouth [place] (ULTIMATE 27 daily. Medical [facility] PROBIOTIC ORAL) Lactobac 2017-03 Yes Take 1 [facility] no.30/Bifid 0-25 TAB-CAP/M2 it y of obact no.4 15:12: by mouth [place] (ULTIMATE 27 daily. Medical [facility] PROBIOTIC ORAL) Lactobac 2017-03 Yes Take 1 [facility] no.30/Bifid 0-25 TAB-CAP/M2 it y of obact no.4 15:12: by mouth [place] (ULTIMATE 27 daily. Medical [facility] PROBIOTIC ORAL) Lactobac 2017-03 Yes Take 1 [facility] no.30/Bifid 0-25 TAB-CAP/M2 it y of obact no.4 15:12: by mouth [place] (ULTIMATE 27 daily. Medical [facility] PROBIOTIC ORAL) Lactobac 2017-03 Yes Take 1 [facility] no.30/Bifid 0-25 TAB-CAP/M2 it y of obact no.4 15:12: by mouth [place] (ULTIMATE 27 daily. Medical [facility] PROBIOTIC ORAL) Lactobac 2017-03 Yes Take 1 [facility] no.30/Bifid 0-25 TAB-CAP/M2 it y of obact no.4 15:12: by mouth [place] (ULTIMATE 27 daily. Medical [facility] PROBIOTIC ORAL) Lactobac 2017-03 Yes Take 1 [facility] no.30/Bifid 0-25 TAB-CAP/M2 it y of obact no.4 15:12: by mouth [place] (ULTIMATE 27 daily. Medical [facility] PROBIOTIC ORAL) Lactobac 2017-03 Yes Take 1 [facility] no.30/Bifid 0-25 TAB-CAP/M2 it y of obact no.4 15:12: by mouth [place] (ULTIMATE 27 daily. Medical [facility] PROBIOTIC ORAL) levocetiriz 2017-03 Yes 5mg Take 5 mg [facility] nivers ine (XYZAL) 0-25 by mouth ity of 5 mg tablet 15:11: every [place] 02 evening. Medical Branch ipratropium 2017-03 Yes 2{spray Use 2 Un hi 42 mcg 0-25 } Sprays in ity of (0.06 %) 15:11: each [place] nasal spray 02 nostril 4 Med ical (four) Branch times daily. levothyroxi 2017-03 Yes 88ug Take 88 [facility] vers ne 0-25 mcg by ity of (SYNTHROID) 15:11: mouth [place] 88 mcg 02 daily. Medical tablet Branch carvedilol 2017-03 Yes 3.125mg Take 3.125 [facility] (COREG) 0-25 mg by ity of 3.125 mg 15:11: mouth 2 [place] tablet 02 (two) Medical times Branch daily with meals. vitamin 2017-03 Yes 1000ug Take 1,000 Un hi B-12 0-25 mcg by ity of (VITAMIN 15:11: mouth [place] B-12) 1,000 02 daily. Medica l mcg tablet Branch DOCOSAHEXAN 2017-03 Yes Take by Uni vers OIC 0-25 mouth ity of ACID/EPA 15:11: daily. [place] (FISH OIL 02 Medical ORAL) Branch Cinnamon 2017-03 Yes 1000mg Take 1,000 [facility] Bark 0-25 mg by ity of (CINNAMON) 15:11: mouth 2 [place] 500 mg Cap 02 (two) Medical times Branch daily. dabigatran 2017-03 Yes 150mg Take 150 Un hi etexilate 0-25 mg by ity of (PRADAXA) 15:11: mouth 2 [place] 150 mg 02 (two) Medical capsule times Branch daily. UBIDECARENO 2018-1 Yes 100mg Take 100 [facility] n[facility] NE (COQ-10 0-25 mg by ity of ORAL) 15:11: mouth. [place] 02 Medical Branch Cholecalcif 2017-03 Yes Take by [facility] vers brian, 0-25 mouth. ity of Vitamin D3, 15:11: [place] (VITAMIN 02 Medical D-3) 5,000 Branch unit Tab risedronate 2017-03 Yes 150mg Take 150 [facility] (ACTONEL) 0-25 mg by ity of 150 mg 15:11: mouth once [place] tablet 02 every Medical month. Branch FLUTICASONE 2017-03 Yes Use in Univ ers PROPIONATE 0-25 each ity of (FLONASE 15:11: nostril as [place] NASAL) 02 needed. Medical Branch levocetiriz 2017-03 Yes 5mg Take 5 mg [facility] ine (XYZAL) 0-25 by mouth ity of 5 mg tablet 15:11: every [place] 02 evening. Medical Branch ipratropium 2017-03 Yes 2{spray Use 2 Un hi 42 mcg 0-25 } Sprays in ity of (0.06 %) 15:11: each [place] nasal spray 02 nostril 4 Med ical (four) Branch times daily. levothyroxi 2017-03 Yes 88ug Take 88 [facility] vers ne 0-25 mcg by ity of (SYNTHROID) 15:11: mouth [place] 88 mcg 02 daily. Medical tablet Branch carvedilol 2017-03 Yes 3.125mg Take 3.125 [facility] (COREG) 0-25 mg by ity of 3.125 mg 15:11: mouth 2 [place] tablet 02 (two) Medical times Branch daily with meals. vitamin 2017-03 Yes 1000ug Take 1,000 Un hi B-12 0-25 mcg by ity of (VITAMIN 15:11: mouth [place] B-12) 1,000 02 daily. Medica l mcg tablet Branch DOCOSAHEXAN 2017-03 Yes Take by Uni vers OIC 0-25 mouth ity of ACID/EPA 15:11: daily. [place] (FISH OIL 02 Medical ORAL) Branch Cinnamon 2017-03 Yes 1000mg Take 1,000 U nivers Bark 0-25 mg by ity of (CINNAMON) 15:11: mouth 2 [place] 500 mg Cap 02 (two) Medical times Branch daily. dabigatran 2017-03 Yes 150mg Take 150 Un hi etexilate 0-25 mg by ity of (PRADAXA) 15:11: mouth 2 [place] 150 mg 02 (two) Medical capsule times Branch daily. UBIDECARENO 2017-03 Yes 100mg Take 100 U n[facility] NE (COQ-10 0-25 mg by ity of ORAL) 15:11: mouth. [place] 02 Medical Branch Cholecalcif 2017-03 Yes Take by [facility] vers brian, 0-25 mouth. ity of Vitamin D3, 15:11: [place] (VITAMIN 02 Medical D-3) 5,000 Branch unit Tab risedronate 2017-03 Yes 150mg Take 150 [facility] (ACTONEL) 0-25 mg by ity of 150 mg 15:11: mouth once [place] tablet 02 every Medical month. Branch FLUTICASONE 2017-03 Yes Use in Univ ers PROPIONATE 0-25 each ity of (FLONASE 15:11: nostril as [place] NASAL) 02 needed. Medical Branch levocetiriz 2017-03 Yes 5mg Take 5 mg [facility] nivers ine (XYZAL) 0-25 by mouth ity of 5 mg tablet 15:11: every [place] 02 evening. Medical Branch ipratropium 2017-03 Yes 2{spray Use 2 Un hi 42 mcg 0-25 } Sprays in ity of (0.06 %) 15:11: each [place] nasal spray 02 nostril 4 Med ical (four) Branch times daily. levothyroxi 2017-03 Yes 88ug Take 88 [facility] vers ne 0-25 mcg by ity of (SYNTHROID) 15:11: mouth [place] 88 mcg 02 daily. Medical tablet Branch carvedilol 2017-03 Yes 3.125mg Take 3.125 [facility] (COREG) 0-25 mg by ity of 3.125 mg 15:11: mouth 2 [place] tablet 02 (two) Medical times Branch daily with meals. vitamin 2017-03 Yes 1000ug Take 1,000 Un hi B-12 0-25 mcg by ity of (VITAMIN 15:11: mouth [place] B-12) 1,000 02 daily. Medica l mcg tablet Branch DOCOSAHEXAN 2017-03 Yes Take by Uni vers OIC 0-25 mouth ity of ACID/EPA 15:11: daily. [place] (FISH OIL 02 Medical ORAL) Branch Cinnamon 2017-03 Yes 1000mg Take 1,000 U nivers Bark 0-25 mg by ity of (CINNAMON) 15:11: mouth 2 [place] 500 mg Cap 02 (two) Medical times Branch daily. dabigatran 2017-03 Yes 150mg Take 150 Un hi etexilate 0-25 mg by ity of (PRADAXA) 15:11: mouth 2 [place] 150 mg 02 (two) Medical capsule times Branch daily. UBIDECARENO 2017-03 Yes 100mg Take 100 U nivers NE (COQ-10 0-25 mg by ity of ORAL) 15:11: mouth. [place] 02 Medical Branch Cholecalcif 2017-03 Yes Take by Uni vers brian, 0-25 mouth. ity of Vitamin D3, 15:11: [place] (VITAMIN 02 [facility] D-3) 5,000 Branch unit Tab risedronate 2017-03 Yes 150mg Take 150 U nivers (ACTONEL) 0-25 mg by ity of 150 mg 15:11: mouth once [place] tablet 02 every Medical month. Branch FLUTICASONE 2017-03 Yes Use in Univ ers PROPIONATE 0-25 each ity of (FLONASE 15:11: nostril as [place] as NASAL) 02 needed. Medical Branch levothyroxi 2017-03 Yes 88ug Take 88 Uni vers ne 0-25 mcg by ity of (SYNTHROID) 15:11: mouth [place] 88 mcg 02 daily. Medical tablet Branch levocetiriz 2017-03 Yes 5mg Take 5 mg U nivers ine (XYZAL) 0-25 by mouth ity of 5 mg tablet 15:11: every [place] 02 evening. Medical Branch ipratropium 2017-03 Yes 2{spray Use 2 Un hi 42 mcg 0-25 } Sprays in ity of (0.06 %) 15:11: each [place] nasal spray 02 nostril 4 Med ical (four) Branch times daily. carvedilol 2017-03 Yes 3.125mg Take 3.125 [facility] (COREG) 0-25 mg by ity of 3.125 mg 15:11: mouth 2 [place] tablet 02 (two) Medical times Branch daily with meals. levothyroxi 2017-03 Yes 88ug Take 88 [facility] vers ne 0-25 mcg by ity of (SYNTHROID) 15:11: mouth [place] 88 mcg 02 daily. Medical tablet Branch carvedilol 2017-03 Yes 3.125mg Take 3.125 [facility] (COREG) 0-25 mg by ity of 3.125 mg 15:11: mouth 2 [place] tablet 02 (two) Medical times Branch daily with meals. vitamin 2017-03 Yes 1000ug Take 1,000 Un hi B-12 0-25 mcg by ity of (VITAMIN 15:11: mouth [place] B-12) 1,000 02 daily. Medica l mcg tablet Branch vitamin 2017-03 Yes 1000ug Take 1,000 Un hi B-12 0-25 mcg by ity of (VITAMIN 15:11: mouth [place] B-12) 1,000 02 daily. Medica l mcg tablet Branch DOCOSAHEXAN 2017-03 Yes Take by Uni vers OIC 0-25 mouth ity of ACID/EPA 15:11: daily. [place] (FISH OIL 02 Medical ORAL) Branch Cinnamon 2017-03 Yes 1000mg Take 1,000 U nivers Bark 0-25 mg by ity of (CINNAMON) 15:11: mouth 2 [place] 500 mg Cap 02 (two) Medical times Branch daily. dabigatran 2017-03 Yes 150mg Take 150 Un hi etexilate 0-25 mg by ity of (PRADAXA) 15:11: mouth 2 [place] 150 mg 02 (two) Medical capsule times Branch daily. UBIDECARENO 2017-03 Yes 100mg Take 100 U nivers NE (COQ-10 0-25 mg by ity of ORAL) 15:11: mouth. [place] [address] Medical Branch Cholecalcif 2017-03 Yes Take by Uni vers brian, 0-25 mouth. ity of Vitamin D3, 15:11: [place] (VITAMIN 02 Medical D-3) 5,000 Branch unit Tab risedronate 2017-03 Yes 150mg Take 150 U nivers (ACTONEL) 0-25 mg by ity of 150 mg 15:11: mouth once [place] tablet 02 every Medical month. Branch FLUTICASONE 2017-03 Yes Use in Univ ers PROPIONATE 0-25 each ity of (FLONASE 15:11: nostril as [place] as NASAL) 02 needed. Medical Branch DOCOSAHEXAN 2017-03 Yes Take by Uni vers OIC 0-25 mouth ity of ACID/EPA 15:11: daily. [place] (FISH OIL 02 Medical ORAL) Branch levocetiriz 2017-03 Yes 5mg Take 5 mg U nivers ine (XYZAL) 0-25 by mouth ity of 5 mg tablet 15:11: every [place] 02 evening. Medical Branch ipratropium 2017-03 Yes 2{spray Use 2 Un hi 42 mcg 0-25 } Sprays in ity of (0.06 %) 15:11: each [place] nasal spray 02 nostril 4 Med ical (four) Branch times daily. Cinnamon 2017-03 Yes 1000mg Take 1,000 U nivers Bark 0-25 mg by ity of (CINNAMON) 15:11: mouth 2 [place] 500 mg Cap 02 (two) Medical times Branch daily. levothyroxi 2017-03 Yes 88ug Take 88 Uni vers ne 0-25 mcg by ity of (SYNTHROID) 15:11: mouth [place] 88 mcg 02 daily. Medical tablet Branch carvedilol 2017-03 Yes 3.125mg Take 3.125 [facility] (COREG) 0-25 mg by ity of 3.125 mg 15:11: mouth 2 [place] tablet 02 (two) Medical times Branch daily with meals. vitamin 2017-03 Yes 1000ug Take 1,000 Un hi B-12 0-25 mcg by ity of (VITAMIN 15:11: mouth [place] B-12) 1,000 02 daily. Medica l mcg tablet Branch DOCOSAHEXAN 2017-03 Yes Take by Uni vers OIC 0-25 mouth ity of ACID/EPA 15:11: daily. [place] (FISH OIL 02 Medical ORAL) Branch Cinnamon 2017-03 Yes 1000mg Take 1,000 U nivers Bark 0-25 mg by ity of (CINNAMON) 15:11: mouth 2 [place] 500 mg Cap 02 (two) Medical times Branch daily. dabigatran 2017-03 Yes 150mg Take 150 Un hi etexilate 0-25 mg by ity of (PRADAXA) 15:11: mouth 2 [place] 150 mg 02 (two) Medical capsule times Branch daily. dabigatran 2017-03 Yes 150mg Take 150 Un hi etexilate 0-25 mg by ity of (PRADAXA) 15:11: mouth 2 [place] 150 mg 02 (two) Medical capsule times Branch daily. UBIDECARENO 2017-03 Yes 100mg Take 100 U nivers NE (COQ-10 0-25 mg by ity of ORAL) 15:11: mouth. Medical Branch Cholecalcif 2017-03 Yes Take by Uni vers brian, 0-25 mouth. ity of Vitamin D3, 15:11: [place] (VITAMIN Medical D-3) 5,000 Branch unit Tab risedronate 2017-03 Yes 150mg Take 150 U nivers (ACTONEL) 0-25 mg by ity of 150 mg 15:11: mouth once [place] tablet 02 every Medical month. Branch FLUTICASONE 2017-03 Yes Use in Univ ers PROPIONATE 0-25 each ity of (FLONASE 15:11: nostril as [place] as NASAL) 02 needed. Medical Branch UBIDECARENO 2017-03 Yes 100mg Take 100 U nivers NE (COQ-10 0-25 mg by ity of ORAL) 15:11: mouth. Medical Branch levocetiriz 2017-03 Yes 5mg Take 5 mg U nivers ine (XYZAL) 0-25 by mouth ity of 5 mg tablet 15:11: every [place] 02 evening. Medical Branch ipratropium 2017-03 Yes 2{spray Use 2 Un hi 42 mcg 0-25 } Sprays in ity of (0.06 %) 15:11: each [place] nasal spray 02 nostril 4 Med ical (four) Branch times daily. Cholecalcif 2017-03 Yes Take by Uni vers brian, 0-25 mouth. ity of Vitamin D3, 15:11: [place] (VITAMIN Medical D-3) 5,000 Branch unit Tab levothyroxi 2017-03 Yes 88ug Take 88 Uni vers ne 0-25 mcg by ity of (SYNTHROID) 15:11: mouth [place] 88 mcg 02 daily. Medical tablet Branch carvedilol 2017-03 Yes 3.125mg Take 3.125 [facility] (COREG) 0-25 mg by ity of 3.125 mg 15:11: mouth 2 [place] tablet 02 (two) Medical times Branch daily with meals. vitamin 2017-03 Yes 1000ug Take 1,000 Un hi B-12 0-25 mcg by ity of (VITAMIN 15:11: mouth [place] B-12) 1,000 02 daily. Medica l mcg tablet Branch DOCOSAHEXAN 2017-03 Yes Take by Uni vers OIC 0-25 mouth ity of ACID/EPA 15:11: daily. [place] (FISH OIL 02 Medical ORAL) Branch Cinnamon 2017-03 Yes 1000mg Take 1,000 U nivers Bark 0-25 mg by ity of (CINNAMON) 15:11: mouth 2 [place] 500 mg Cap 02 (two) Medical times Branch daily. dabigatran 2017-03 Yes 150mg Take 150 Un hi etexilate 0-25 mg by ity of (PRADAXA) 15:11: mouth 2 [place] 150 mg 02 (two) Medical capsule times Branch daily. UBIDECARENO 2017-03 Yes 100mg Take 100 U nivers NE (COQ-10 0-25 mg by ity of ORAL) 15:11: mouth. [place] 02 Medical Branch risedronate 2017-03 Yes 150mg Take 150 U nivers (ACTONEL) 0-25 mg by ity of 150 mg 15:11: mouth once [place] tablet 02 every Medical month. Branch Cholecalcif 2017-03 Yes Take by Uni vers brian, 0-25 mouth. ity of Vitamin D3, 15:11: [place] (VITAMIN 02 Medical D-3) 5,000 Branch unit Tab risedronate 2017-03 Yes 150mg Take 150 U nivers (ACTONEL) 0-25 mg by ity of 150 mg 15:11: mouth once [place] tablet 02 every Medical month. Branch FLUTICASONE 2017-03 Yes Use in Univ ers PROPIONATE 0-25 each ity of (FLONASE 15:11: nostril as [place] as NASAL) 02 needed. Medical Branch FLUTICASONE 2017-03 Yes Use in Univ ers PROPIONATE 0-25 each ity of (FLONASE 15:11: nostril as [place] as NASAL) 02 needed. Medical Branch levocetiriz 2017-03 Yes 5mg Take 5 mg U nivers ine (XYZAL) 0-25 by mouth ity of 5 mg tablet 15:11: every [place] 02 evening. Medical Branch ipratropium 2017-03 Yes 2{spray Use 2 Un hi 42 mcg 0-25 } Sprays in ity of (0.06 %) 15:11: each [place] nasal spray 02 nostril 4 Med ical (four) Branch times daily. levothyroxi 2017-03 Yes 88ug Take 88 Uni vers ne 0-25 mcg by ity of (SYNTHROID) 15:11: mouth [place] 88 mcg 02 daily. Medical tablet Branch carvedilol 2017-03 Yes 3.125mg Take 3.125 [facility] (COREG) 0-25 mg by ity of 3.125 mg 15:11: mouth 2 [place] tablet 02 (two) Medical times Branch daily with meals. vitamin 2017-03 Yes 1000ug Take 1,000 Un hi B-12 0-25 mcg by ity of (VITAMIN 15:11: mouth [place] B-12) 1,000 02 daily. Medica l mcg tablet Branch DOCOSAHEXAN 2017-03 Yes Take by Uni vers OIC 0-25 mouth ity of ACID/EPA 15:11: daily. [place] (FISH OIL 02 Medical ORAL) Branch Cinnamon 2017-03 Yes 1000mg Take 1,000 U nivers Bark 0-25 mg by ity of (CINNAMON) 15:11: mouth 2 [place] 500 mg Cap 02 (two) Medical times Branch daily. dabigatran 2017-03 Yes 150mg Take 150 Un hi etexilate 0-25 mg by ity of (PRADAXA) 15:11: mouth 2 [place] 150 mg 02 (two) Medical capsule times Branch daily. UBIDECARENO 2017-03 Yes 100mg Take 100 U nivers NE (COQ-10 0-25 mg by ity of ORAL) 15:11: mouth. [place] 02 Medical Branch Cholecalcif 2017-03 Yes Take by Uni vers brian, 0-25 mouth. ity of Vitamin D3, 15:11: [place] (VITAMIN 02 Medical D-3) 5,000 Branch unit Tab risedronate 2017-03 Yes 150mg Take 150 [facility] nivers (ACTONEL) 0-25 mg by ity of 150 mg 15:11: mouth once [place] tablet 02 every Medical month. Branch FLUTICASONE 2017-03 Yes Use in Univ ers PROPIONATE 0-25 each ity of (FLONASE 15:11: nostril as Mike as NASAL) 02 needed. Medical Branch levocetiriz 2017-03 Yes 5mg Take 5 mg [facility]ivers ine (XYZAL) 0-25 by mouth ity of 5 mg tablet 15:11: every [place] 02 evening. Medical Branch ipratropium 2017-03 Yes 2{spray Use 2 Un hi 42 mcg 0-25 } Sprays in ity of (0.06 %) 15:11: each [place] nasal spray 02 nostril 4 Med ical (four) Branch times daily. levothyroxi 2017-03 Yes 88ug Take 88 Uni vers ne 0-25 mcg by ity of (SYNTHROID) 15:11: mouth [place] 88 mcg 02 daily. Medical tablet Branch carvedilol 2017-03 Yes 3.125mg Take 3.125 [facility] (COREG) 0-25 mg by ity of 3.125 mg 15:11: mouth 2 [place] tablet 02 (two) Medical times Branch daily with meals. vitamin 2017-03 Yes 1000ug Take 1,000 Un hi B-12 0-25 mcg by ity of (VITAMIN 15:11: mouth [place] B-12) 1,000 02 daily. Medica l mcg tablet Branch DOCOSAHEXAN 2017-03 Yes Take by Uni vers OIC 0-25 mouth ity of ACID/EPA 15:11: daily. [place] (FISH OIL 02 Medical ORAL) Branch Cinnamon 2017-03 Yes 1000mg Take 1,000 [facility] Bark 0-25 mg by ity of (CINNAMON) 15:11: mouth 2 [place] 500 mg Cap 02 (two) Medical times Branch daily. dabigatran 2017-03 Yes 150mg Take 150 Un hi etexilate 0-25 mg by ity of (PRADAXA) 15:11: mouth 2 [place] 150 mg 02 (two) Medical capsule times Branch daily. UBIDECARENO 2017-03 Yes 100mg Take 100 [facility] nivers NE (COQ-10 0-25 mg by ity of ORAL) 15:11: mouth. [place] 02 Medical Branch Cholecalcif 2017-03 Yes Take by [facility] vers brian, 0-25 mouth. ity of Vitamin D3, 15:11: [place] (VITAMIN 02 Medical D-3) 5,000 Branch unit Tab risedronate 2017-03 Yes 150mg Take 150 [facility] (ACTONEL) 0-25 mg by ity of 150 mg 15:11: mouth once [place] tablet 02 every Medical month. Branch FLUTICASONE 2017-03 Yes Use in [facility] PROPIONATE 0-25 each ity of (FLONASE 15:11: nostril as [place] as NASAL) 02 needed. Medical Branch levocetiriz 2017-03 Yes 5mg Take 5 mg [facility] ine (XYZAL) 0-25 by mouth ity of 5 mg tablet 15:11: every [place] 02 evening. Medical Branch ipratropium 2017-03 Yes 2{spray Use 2 Un hi 42 mcg 0-25 } Sprays in ity of (0.06 %) 15:11: each [place] nasal spray 02 nostril 4 Med ical (four) Branch times daily. levothyroxi 2017-03 Yes 88ug Take 88 [facility] vers ne 0-25 mcg by ity of (SYNTHROID) 15:11: mouth [place] 88 mcg 02 daily. Medical tablet Branch carvedilol 2017-03 Yes 3.125mg Take 3.125 [facility] (COREG) 0-25 mg by ity of 3.125 mg 15:11: mouth 2 [place] tablet 02 (two) Medical times Branch daily with meals. vitamin 2017-03 Yes 1000ug Take 1,000 Un hi B-12 0-25 mcg by ity of (VITAMIN 15:11: mouth [place] B-12) 1,000 02 daily. Medica l mcg tablet Branch DOCOSAHEXAN 2017-03 Yes Take by [facility] vers OIC 0-25 mouth ity of ACID/EPA 15:11: daily. [place] (FISH OIL 02 Medical ORAL) Branch Cinnamon 2017-03 Yes 1000mg Take 1,000 [facility] Bark 0-25 mg by ity of (CINNAMON) 15:11: mouth 2 [place] 500 mg Cap 02 (two) Medical times Branch daily. dabigatran 2017-03 Yes 150mg Take 150 Un ih etexilate 0-25 mg by ity of (PRADAXA) 15:11: mouth 2 [place] 150 mg 02 (two) Medical capsule times Branch daily. UBIDECARENO 2017-03 Yes 100mg Take 100 [facility] NE (COQ-10 0-25 mg by ity of ORAL) 15:11: mouth. [place] 02 Medical Branch Cholecalcif 2017-03 Yes Take by [facility] vers brian, 0-25 mouth. ity of Vitamin D3, 15:11: [place] (VITAMIN 02 Medical D-3) 5,000 Branch unit Tab risedronate 2017-03 Yes 150mg Take 150 [facility] (ACTONEL) 0-25 mg by ity of 150 mg 15:11: mouth once [place] tablet 02 every Medical month. Branch FLUTICASONE 2017-03 Yes Use in [facility] PROPIONATE 0-25 each ity of (FLONASE 15:11: nostril as [place] as NASAL) 02 needed. Medical Branch levocetiriz 2017-03 Yes 5mg Take 5 mg [facility] ine (XYZAL) 0-25 by mouth ity of 5 mg tablet 15:11: every [place] evening. Medical Branch ipratropium 2017-03 Yes 2{spray Use 2 Un hi 42 mcg 0-25 } Sprays in ity of (0.06 %) 15:11: each [place] nasal spray 02 nostril 4 Med ical (four) Branch times daily. levothyroxi 2017-03 Yes 88ug Take 88 [facility] vers ne 0-25 mcg by ity of (SYNTHROID) 15:11: mouth [place] 88 mcg 02 daily. Medical tablet Branch carvedilol 2017-03 Yes 3.125mg Take 3.125 [facility] (COREG) 0-25 mg by ity of 3.125 mg 15:11: mouth 2 [place] tablet 02 (two) Medical times Branch daily with meals. vitamin 2017-03 Yes 1000ug Take 1,000 Un hi B-12 0-25 mcg by ity of (VITAMIN 15:11: mouth [place] B-12) 1,000 02 daily. Medica l mcg tablet Branch DOCOSAHEXAN 2017-03 Yes Take by [facility] vers OIC 0-25 mouth ity of ACID/EPA 15:11: daily. [place] (FISH OIL 02 Medical ORAL) Branch Cinnamon 2017-03 Yes 1000mg Take 1,000 [facility] Bark 0-25 mg by ity of (CINNAMON) 15:11: mouth 2 [place] 500 mg Cap 02 (two) Medical times Branch daily. dabigatran 2017-03 Yes 150mg Take 150 Un hi etexilate 0-25 mg by ity of (PRADAXA) 15:11: mouth 2 [place] 150 mg 02 (two) Medical capsule times Branch daily. levocetiriz 2017-03 Yes 5mg Take 5 mg [facility] ine (XYZAL) 0-25 by mouth ity of 5 mg tablet 15:11: every [place] 02 evening. Medical Branch UBIDECARENO 2017-03 Yes 100mg Take 100 [facility] nivers NE (COQ-10 0-25 mg by ity of ORAL) 15:11: mouth. [place] 02 Medical Branch Cholecalcif 2017-03 Yes Take by [facility] vers brian, 0-25 mouth. ity of Vitamin D3, 15:11: [place] (VITAMIN 02 Medical D-3) 5,000 Branch unit Tab risedronate 2017-03 Yes 150mg Take 150 [facility] (ACTONEL) 0-25 mg by ity of 150 mg 15:11: mouth once [place] tablet 02 every Medical month. Branch FLUTICASONE 2017-03 Yes Use in [facility] PROPIONATE 0-25 each ity of (FLONASE 15:11: nostril as [place] as NASAL) 02 needed. Medical Branch ipratropium 2017-03 Yes 2{spray Use 2 Un hi 42 mcg 0-25 } Sprays in ity of (0.06 %) 15:11: each [place] nasal spray 02 nostril 4 Med ical (four) Branch times daily. levocetiriz 2017-03 Yes 5mg Take 5 mg [facility] ine (XYZAL) 0-25 by mouth ity of 5 mg tablet 15:11: every [place] 02 evening. Medical Branch ipratropium 2017-03 Yes 2{spray Use 2 Un hi 42 mcg 0-25 } Sprays in ity of (0.06 %) 15:11: each [place] nasal spray 02 nostril 4 Med ical (four) Branch times daily. levothyroxi 2017-03 Yes 88ug Take 88 [facility] vers ne 0-25 mcg by ity of (SYNTHROID) 15:11: mouth [place] 88 mcg 02 daily. Medical tablet Branch carvedilol 2017-03 Yes 3.125mg Take 3.125 [facility] (COREG) 0-25 mg by ity of 3.125 mg 15:11: mouth 2 [place] tablet 02 (two) Medical times Branch daily with meals. vitamin 2017-03 Yes 1000ug Take 1,000 Un hi B-12 0-25 mcg by ity of (VITAMIN 15:11: mouth [place] B-12) 1,000 02 daily. Medica l mcg tablet Branch DOCOSAHEXAN 2017-03 Yes Take by [facility] vers OIC 0-25 mouth ity of ACID/EPA 15:11: daily. [place] (FISH OIL 02 Medical ORAL) Branch Cinnamon 2017-03 Yes 1000mg Take 1,000 [facility] n[facility] Bark 0-25 mg by ity of (CINNAMON) 15:11: mouth 2 [place] 500 mg Cap 02 (two) Medical times Branch daily. dabigatran 2017-03 Yes 150mg Take 150 Un hi etexilate 0-25 mg by ity of (PRADAXA) 15:11: mouth 2 [place] 150 mg 02 (two) Medical capsule times Branch daily. UBIDECARENO 2017-03 Yes 100mg Take 100 [facility] NE (COQ-10 0-25 mg by ity of ORAL) 15:11: mouth. [place] 02 Medical Branch Cholecalcif 2017-03 Yes Take by [facility] vers brian, 0-25 mouth. ity of Vitamin D3, 15:11: [place] (VITAMIN 02 Medical D-3) 5,000 Branch unit Tab risedronate 2017-03 Yes 150mg Take 150 [facility] (ACTONEL) 0-25 mg by ity of 150 mg 15:11: mouth once [place] tablet 02 every Medical month. Branch FLUTICASONE 2017-03 Yes Use in [facility] PROPIONATE 0-25 each ity of (FLONASE 15:11: nostril as [place] as NASAL) 02 needed. Medical Branch levocetiriz 2017-03 Yes 5mg Take 5 mg [facility] ine (XYZAL) 0-25 by mouth ity of 5 mg tablet 15:11: every [place] 02 evening. Medical Branch ipratropium 2017-03 Yes 2{spray Use 2 Un hi 42 mcg 0-25 } Sprays in ity of (0.06 %) 15:11: each [place] nasal spray 02 nostril 4 Med ical (four) Branch times daily. levothyroxi 2017-03 Yes 88ug Take 88 [facility] vers ne 0-25 mcg by ity of (SYNTHROID) 15:11: mouth [place] 88 mcg 02 daily. Medical tablet Branch carvedilol 2017-03 Yes 3.125mg Take 3.125 [facility] (COREG) 0-25 mg by ity of 3.125 mg 15:11: mouth 2 [place] tablet 02 (two) Medical times Branch daily with meals. vitamin 2017-03 Yes 1000ug Take 1,000 Un hi B-12 0-25 mcg by ity of (VITAMIN 15:11: mouth [place] B-12) 1,000 02 daily. Medica l mcg tablet Branch DOCOSAHEXAN 2017-03 Yes Take by [facility] vers OIC 0-25 mouth ity of ACID/EPA 15:11: daily. [place] (FISH OIL 02 Medical ORAL) Branch Cinnamon 2017-03 Yes 1000mg Take 1,000 [facility] n[facility] Bark 0-25 mg by ity of (CINNAMON) 15:11: mouth 2 [place] 500 mg Cap 02 (two) Medical times Branch daily. dabigatran 2017-03 Yes 150mg Take 150 Un hi etexilate 0-25 mg by ity of (PRADAXA) 15:11: mouth 2 [place] 150 mg 02 (two) Medical capsule times Branch daily. UBIDECARENO 2017-03 Yes 100mg Take 100 U nivers NE (COQ-10 0-25 mg by ity of ORAL) 15:11: mouth. [place] 02 Medical Branch Cholecalcif 2017-03 Yes Take by [facility] vers brian, 0-25 mouth. ity of Vitamin D3, 15:11: [place] (VITAMIN 02 Medical D-3) 5,000 Branch unit Tab risedronate 2017-03 Yes 150mg Take 150 [facility] (ACTONEL) 0-25 mg by ity of 150 mg 15:11: mouth once [place] tablet 02 every Medical month. Branch FLUTICASONE 2017-03 Yes Use in [facility] ers PROPIONATE 0-25 each ity of (FLONASE 15:11: nostril as [place] as NASAL) 02 needed. Medical Branch levocetiriz 2017-03 Yes 5mg Take 5 mg [facility] ine (XYZAL) 0-25 by mouth ity of 5 mg tablet 15:11: every [place] 02 evening. Medical Branch ipratropium 2017-03 Yes 2{spray Use 2 Un hi 42 mcg 0-25 } Sprays in ity of (0.06 %) 15:11: each [place] nasal spray 02 nostril 4 Med ical (four) Branch times daily. carvedilol 2017-03 Yes 3.125mg Take 3.125 [facility] (COREG) 0-25 mg by ity of 3.125 mg 15:11: mouth 2 [place] tablet 02 (two) Medical times Branch daily with meals. DOCOSAHEXAN 2017-03 Yes Take by [facility] vers OIC 0-25 mouth ity of ACID/EPA 15:11: daily. [place] (FISH OIL 02 Medical ORAL) Branch Cinnamon 2017-03 Yes 1000mg Take 1,000 U nivers Bark 0-25 mg by ity of (CINNAMON) 15:11: mouth 2 [place] 500 mg Cap 02 (two) Medical times Branch daily. dabigatran 2017-03 Yes 150mg Take 150 Un hi etexilate 0-25 mg by ity of (PRADAXA) 15:11: mouth 2 [place] 150 mg 02 (two) Medical capsule times Branch daily. UBIDECARENO 2017-03 Yes 100mg Take 100 U nivers NE (COQ-10 0-25 mg by ity of ORAL) 15:11: mouth. [place] Medical Branch Cholecalcif 2017-03 Yes Take by Uni vers brian, 0-25 mouth. ity of Vitamin D3, 15:11: [place] (VITAMIN 02 Medical D-3) 5,000 Branch unit Tab risedronate 2017-03 Yes 150mg Take 150 [facility] (ACTONEL) 0-25 mg by ity of 150 mg 15:11: mouth once [place] tablet 02 every Medical month. Branch FLUTICASONE 2017-03 Yes Use in [facility] ers PROPIONATE 0-25 each ity of (FLONASE 15:11: nostril as [place] as NASAL) 02 needed. Medical Branch levocetiriz 2017-03 Yes 5mg Take 5 mg [facility] ine (XYZAL) 0-25 by mouth ity of 5 mg tablet 15:11: every [place] 02 evening. Medical Branch ipratropium 2017-03 Yes 2{spray Use 2 Un hi 42 mcg 0-25 } Sprays in ity of (0.06 %) 15:11: each [place] nasal spray 02 nostril 4 Med ical (four) Branch times daily. carvedilol 2017-03 Yes 3.125mg Take 3.125 [facility] (COREG) 0-25 mg by ity of 3.125 mg 15:11: mouth 2 [place] tablet 02 (two) Medical times Branch daily with meals. DOCOSAHEXAN 2017-03 Yes Take by [facility] vers OIC 0-25 mouth ity of ACID/EPA 15:11: daily. [place] (FISH OIL 02 Medical ORAL) Branch Cinnamon 2017-03 Yes 1000mg Take 1,000 U nivers Bark 0-25 mg by ity of (CINNAMON) 15:11: mouth 2 [place] 500 mg Cap 02 (two) Medical times Branch daily. dabigatran 2017-03 Yes 150mg Take 150 Un hi etexilate 0-25 mg by ity of (PRADAXA) 15:11: mouth 2 [place] 150 mg 02 (two) Medical capsule times Branch daily. UBIDECARENO 2017-03 Yes 100mg Take 100 U nivers NE (COQ-10 0-25 mg by ity of ORAL) 15:11: mouth. [place] Medical Branch Cholecalcif 2017-03 Yes Take by Uni vers brian, 0-25 mouth. ity of Vitamin D3, 15:11: [place] (VITAMIN 02 Medical D-3) 5,000 Branch unit Tab risedronate 2017-03 Yes 150mg Take 150 [facility] (ACTONEL) 0-25 mg by ity of 150 mg 15:11: mouth once [place] tablet 02 every Medical month. Branch FLUTICASONE 2017-03 Yes Use in [facility] ers PROPIONATE 0-25 each ity of (FLONASE 15:11: nostril as [place] as NASAL) 02 needed. Medical Branch levocetiriz 2017-03 Yes 5mg Take 5 mg [facility] n[facility] ine (XYZAL) 0-25 by mouth ity of 5 mg tablet 15:11: every [place] 02 evening. Medical Branch ipratropium 2017-03 Yes 2{spray Use 2 Un hi 42 mcg 0-25 } Sprays in ity of (0.06 %) 15:11: each [place] nasal spray 02 nostril 4 Med ical (four) Branch times daily. carvedilol 2017-03 Yes 3.125mg Take 3.125 [facility] (COREG) 0-25 mg by ity of 3.125 mg 15:11: mouth 2 [place] tablet 02 (two) Medical times Branch daily with meals. DOCOSAHEXAN 2017-03 Yes Take by Uni vers OIC 0-25 mouth ity of ACID/EPA 15:11: daily. [place] (FISH OIL 02 Medical ORAL) Branch Cinnamon 2017-03 Yes 1000mg Take 1,000 U nivers Bark 0-25 mg by ity of (CINNAMON) 15:11: mouth 2 [place] 500 mg Cap 02 (two) Medical times Branch daily. dabigatran 2017-03 Yes 150mg Take 150 Un hi etexilate 0-25 mg by ity of (PRADAXA) 15:11: mouth 2 [place] 150 mg 02 (two) Medical capsule times Branch daily. UBIDECARENO 2017-03 Yes 100mg Take 100 U nivers NE (COQ-10 0-25 mg by ity of ORAL) 15:11: mouth. [place] [address] Medical Branch Cholecalcif 2018-1 Yes Take by Uni vers brian, 0-25 mouth. ity of Vitamin D3, 15:11: [place] (VITAMIN 02 Medical D-3) 5,000 Branch unit Tab risedronate 2017-03 Yes 150mg Take 150 [facility] (ACTONEL) 0-25 mg by ity of 150 mg 15:11: mouth once [place] tablet 02 every Medical month. Branch FLUTICASONE 2017-03 Yes Use in [facility] ers PROPIONATE 0-25 each ity of (FLONASE 15:11: nostril as [place] as NASAL) 02 needed. Medical Branch levocetiriz 2017-03 Yes 5mg Take 5 mg [facility] nivers ine (XYZAL) 0-25 by mouth ity of 5 mg tablet 15:11: every [place] 02 evening. Medical Branch ipratropium 2017-03 Yes 2{spray Use 2 Un hi 42 mcg 0-25 } Sprays in ity of (0.06 %) 15:11: each [place] nasal spray 02 nostril 4 Med ical (four) Branch times daily. levothyroxi 2017-03 Yes 88ug Take 88 Uni vers ne 0-25 mcg by ity of (SYNTHROID) 15:11: mouth [place] 88 mcg 02 daily. Medical tablet Branch carvedilol 2017-03 Yes 3.125mg Take 3.125 [facility] (COREG) 0-25 mg by ity of 3.125 mg 15:11: mouth 2 [place] tablet 02 (two) Medical times Branch daily with meals. DOCOSAHEXAN 2017-03 Yes Take by Uni vers OIC 0-25 mouth ity of ACID/EPA 15:11: daily. [place] (FISH OIL 02 Medical ORAL) Branch carvedilol 2017-03 Yes 3.125mg Take 3.125 [facility] (COREG) 0-25 mg by ity of 3.125 mg 15:11: mouth 2 [place] tablet 02 (two) Medical times Branch daily with meals. Cinnamon 2017-03 Yes 1000mg Take 1,000 U nivers Bark 0-25 mg by ity of (CINNAMON) 15:11: mouth 2 [place] 500 mg Cap 02 (two) Medical times Branch daily. dabigatran 2017-03 Yes 150mg Take 150 Un hi etexilate 0-25 mg by ity of (PRADAXA) 15:11: mouth 2 [place] 150 mg 02 (two) Medical capsule times Branch daily. UBIDECARENO 2017-03 Yes 100mg Take 100 U nivers NE (COQ-10 0-25 mg by ity of ORAL) 15:11: mouth. [place] Medical Branch Cholecalcif 2017-03 Yes Take by Uni vers brian, 0-25 mouth. ity of Vitamin D3, 15:11: [place] (VITAMIN 02 Medical D-3) 5,000 Branch unit Tab risedronate 2017-03 Yes 150mg Take 150 [facility] nivers (ACTONEL) 0-25 mg by ity of 150 mg 15:11: mouth once [place] tablet 02 every Medical month. Branch FLUTICASONE 2017-03 Yes Use in Univ ers PROPIONATE 0-25 each ity of (FLONASE 15:11: nostril as [place] as NASAL) 02 needed. Medical Branch vitamin 2017-03 Yes 1000ug Take 1,000 Un hi B-12 0-25 mcg by ity of (VITAMIN 15:11: mouth [place] B-12) 1,000 02 daily. Medica l mcg tablet Branch levocetiriz 2017-03 Yes 5mg Take 5 mg U nivers ine (XYZAL) 0-25 by mouth ity of 5 mg tablet 15:11: every [place] 02 evening. Medical Branch ipratropium 2017-03 Yes 2{spray Use 2 Un hi 42 mcg 0-25 } Sprays in ity of (0.06 %) 15:11: each [place] nasal spray 02 nostril 4 Med ical (four) Branch times daily. DOCOSAHEXAN 2017-03 Yes Take by Uni vers OIC 0-25 mouth ity of ACID/EPA 15:11: daily. [place] (FISH OIL 02 Medical ORAL) Branch carvedilol 2017-03 Yes 3.125mg Take 3.125 [facility] (COREG) 0-25 mg by ity of 3.125 mg 15:11: mouth 2 [place] tablet 02 (two) Medical times Branch daily with meals. DOCOSAHEXAN 2017-03 Yes Take by Uni vers OIC 0-25 mouth ity of ACID/EPA 15:11: daily. [place] (FISH OIL 02 Medical ORAL) Branch Cinnamon 2017-03 Yes 1000mg Take 1,000 U nivers Bark 0-25 mg by ity of (CINNAMON) 15:11: mouth 2 [place] 500 mg Cap 02 (two) Medical times Branch daily. dabigatran 2017-03 Yes 150mg Take 150 Un hi etexilate 0-25 mg by ity of (PRADAXA) 15:11: mouth 2 [place] 150 mg 02 (two) Medical capsule times Branch daily. Cinnamon 2017-03 Yes 1000mg Take 1,000 U nivers Bark 0-25 mg by ity of (CINNAMON) 15:11: mouth 2 [place] 500 mg Cap 02 (two) Medical times Branch daily. UBIDECARENO 2017-03 Yes 100mg Take 100 U nivers NE (COQ-10 0-25 mg by ity of ORAL) 15:11: mouth. Medical Branch Cholecalcif 2017-03 Yes Take by Uni vers brian, 0-25 mouth. ity of Vitamin D3, 15:11: [place] (VITAMIN [address] [place] [address] D-3) 5,000 Branch unit Tab risedronate 2017-03 Yes 150mg Take 150 U nivers (ACTONEL) 0-25 mg by ity of 150 mg 15:11: mouth once [place] tablet 02 every Medical month. Branch FLUTICASONE 2017-03 Yes Use in Univ ers PROPIONATE 0-25 each ity of (FLONASE 15:11: nostril as [place] as NASAL) 02 needed. Medical Branch dabigatran 2017-03 Yes 150mg Take 150 Un hi etexilate 0-25 mg by ity of (PRADAXA) 15:11: mouth 2 [place] 150 mg 02 (two) Medical capsule times Branch daily. levocetiriz 2017-03 Yes 5mg Take 5 mg U nivers ine (XYZAL) 0-25 by mouth ity of 5 mg tablet 15:11: every [place] 02 evening. Medical Branch ipratropium 2017-03 Yes 2{spray Use 2 Un hi 42 mcg 0-25 } Sprays in ity of (0.06 %) 15:11: each [place] nasal spray 02 nostril 4 Med ical (four) Branch times daily. UBIDECARENO 2017-03 Yes 100mg Take 100 U nivers NE (COQ-10 0-25 mg by ity of ORAL) 15:11: mouth. Medical Branch carvedilol 2017-03 Yes 3.125mg Take 3.125 [facility] (COREG) 0-25 mg by ity of 3.125 mg 15:11: mouth 2 [place] tablet 02 (two) Medical times Branch daily with meals. DOCOSAHEXAN 2017-03 Yes Take by Uni vers OIC 0-25 mouth ity of ACID/EPA 15:11: daily. [place] (FISH OIL 02 Medical ORAL) Branch Cinnamon 2017-03 Yes 1000mg Take 1,000 U nivers Bark 0-25 mg by ity of (CINNAMON) 15:11: mouth 2 [place] 500 mg Cap 02 (two) Medical times Branch daily. dabigatran 2017-03 Yes 150mg Take 150 Un hi etexilate 0-25 mg by ity of (PRADAXA) 15:11: mouth 2 [place] 150 mg 02 (two) Medical capsule times Branch daily. UBIDECARENO 2017-03 Yes 100mg Take 100 U nivers NE (COQ-10 0-25 mg by ity of ORAL) 15:11: mouth. [place] 02 Medical Branch Cholecalcif 2017-03 Yes Take by Uni vers brian, 0-25 mouth. ity of Vitamin D3, 15:11: [place] (VITAMIN 02 Medical D-3) 5,000 Branch unit Tab Cholecalcif 2017-03 Yes Take by Uni vers brian, 0-25 mouth. ity of Vitamin D3, 15:11: [place] (VITAMIN 02 Medical D-3) 5,000 Branch unit Tab risedronate 2017-03 Yes 150mg Take 150 U nivers (ACTONEL) 0-25 mg by ity of 150 mg 15:11: mouth once [place] tablet 02 every Medical month. Branch FLUTICASONE 2017-03 Yes Use in [facility] ers PROPIONATE 0-25 each ity of (FLONASE 15:11: nostril as [place] as NASAL) 02 needed. Medical Branch risedronate 2017-03 Yes 150mg Take 150 U nivers (ACTONEL) 0-25 mg by ity of 150 mg 15:11: mouth once [place] tablet 02 every Medical month. Branch levocetiriz 2017-03 Yes 5mg Take 5 mg U nivers ine (XYZAL) 0-25 by mouth ity of 5 mg tablet 15:11: every [place] 02 evening. Medical Branch ipratropium 2017-03 Yes 2{spray Use 2 Un hi 42 mcg 0-25 } Sprays in ity of (0.06 %) 15:11: each [place] nasal spray 02 nostril 4 Med ical (four) Branch times daily. FLUTICASONE 2017-03 Yes Use in [facility] ers PROPIONATE 0-25 each ity of (FLONASE 15:11: nostril as [place] as NASAL) 02 needed. Medical Branch carvedilol 2017-03 Yes 3.125mg Take 3.125 [facility] (COREG) 0-25 mg by ity of 3.125 mg 15:11: mouth 2 [place] tablet 02 (two) Medical times Branch daily with meals. DOCOSAHEXAN 2017-03 Yes Take by Uni vers OIC 0-25 mouth ity of ACID/EPA 15:11: daily. [place] (FISH OIL 02 Medical ORAL) Branch Cinnamon 2017-03 Yes 1000mg Take 1,000 U nivers Bark 0-25 mg by ity of (CINNAMON) 15:11: mouth 2 [place] 500 mg Cap 02 (two) Medical times Branch daily. dabigatran 2017-03 Yes 150mg Take 150 Un hi etexilate 0-25 mg by ity of (PRADAXA) 15:11: mouth 2 [place] 150 mg 02 (two) Medical capsule times Branch daily. UBIDECARENO 2017-03 Yes 100mg Take 100 U nivers NE (COQ-10 0-25 mg by ity of ORAL) 15:11: mouth. [place] 02 Medical Branch Cholecalcif 2017-03 Yes Take by Uni vers brian, 0-25 mouth. ity of Vitamin D3, 15:11: [place] (VITAMIN 02 Medical D-3) 5,000 Branch unit Tab risedronate 2017-03 Yes 150mg Take 150 U nivers (ACTONEL) 0-25 mg by ity of 150 mg 15:11: mouth once [place] tablet 02 every Medical month. Branch FLUTICASONE 2017-03 Yes Use in [facility] ers PROPIONATE 0-25 each ity of (FLONASE 15:11: nostril as [place] as NASAL) 02 needed. Medical Branch levocetiriz 2017-03 Yes 5mg Take 5 mg U nivers ine (XYZAL) 0-25 by mouth ity of 5 mg tablet 15:11: every [place] 02 evening. Medical Branch ipratropium 2017-03 Yes 2{spray Use 2 Un hi 42 mcg 0-25 } Sprays in ity of (0.06 %) 15:11: each [place] nasal spray 02 nostril 4 Med ical (four) Branch times daily. carvedilol 2017-03 Yes 3.125mg Take 3.125 [facility] (COREG) 0-25 mg by ity of 3.125 mg 15:11: mouth 2 [place] tablet 02 (two) Medical times Branch daily with meals. DOCOSAHEXAN 2017-03 Yes Take by Uni vers OIC 0-25 mouth ity of ACID/EPA 15:11: daily. [place] (FISH OIL 02 Medical ORAL) Branch Cinnamon 2017-03 Yes 1000mg Take 1,000 U nivers Bark 0-25 mg by ity of (CINNAMON) 15:11: mouth 2 [place] 500 mg Cap 02 (two) Medical times Branch daily. dabigatran 2017-03 Yes 150mg Take 150 Un hi etexilate 0-25 mg by ity of (PRADAXA) 15:11: mouth 2 [place] 150 mg 02 (two) Medical capsule times Branch daily. UBIDECARENO 2017-03 Yes 100mg Take 100 U nivers NE (COQ-10 0-25 mg by ity of ORAL) 15:11: mouth. [place] 02 Medical Branch Cholecalcif 2017-03 Yes Take by Uni vers brian, 0-25 mouth. ity of Vitamin D3, 15:11: [place] (VITAMIN 02 Medical D-3) 5,000 Branch unit Tab risedronate 2017-03 Yes 150mg Take 150 U nivers (ACTONEL) 0-25 mg by ity of 150 mg 15:11: mouth once [place] tablet 02 every Medical month. Branch FLUTICASONE 2017-03 Yes Use in [facility] ers PROPIONATE 0-25 each ity of (FLONASE 15:11: nostril as [place] as NASAL) 02 needed. Medical Branch levocetiriz 2017-03 Yes 5mg Take 5 mg U nivers ine (XYZAL) 0-25 by mouth ity of 5 mg tablet 15:11: every [place] 02 evening. Medical Branch ipratropium 2017-03 Yes 2{spray Use 2 Un hi 42 mcg 0-25 } Sprays in ity of (0.06 %) 15:11: each [place] nasal spray 02 nostril 4 Med ical (four) Branch times daily. levocetiriz 2017-03 Yes 5mg Take 5 mg U nivers ine (XYZAL) 0-25 by mouth ity of 5 mg tablet 15:11: every [place] 02 evening. Medical Branch ipratropium 2017-03 Yes 2{spray Use 2 Un hi 42 mcg 0-25 } Sprays in ity of (0.06 %) 15:11: each [place] nasal spray 02 nostril 4 Med ical (four) Branch times daily. levothyroxi 2017-03 Yes 88ug Take 88 Uni vers ne 0-25 mcg by ity of (SYNTHROID) 15:11: mouth [place] 88 mcg 02 daily. Medical tablet Branch carvedilol 2017-03 Yes 3.125mg Take 3.125 [facility] (COREG) 0-25 mg by ity of 3.125 mg 15:11: mouth 2 [place] tablet 02 (two) Medical times Branch daily with meals. vitamin 2017-03 Yes 1000ug Take 1,000 Un hi B-12 0-25 mcg by ity of (VITAMIN 15:11: mouth [place] B-12) 1,000 02 daily. Medica l mcg tablet Branch DOCOSAHEXAN 2017-03 Yes Take by Uni vers OIC 0-25 mouth ity of ACID/EPA 15:11: daily. [place] (FISH OIL 02 Medical ORAL) Branch Cinnamon 2017-03 Yes 1000mg Take 1,000 U nivers Bark 0-25 mg by ity of (CINNAMON) 15:11: mouth 2 [place] 500 mg Cap 02 (two) Medical times Branch daily. dabigatran 2017-03 Yes 150mg Take 150 Un hi etexilate 0-25 mg by ity of (PRADAXA) 15:11: mouth 2 [place] 150 mg 02 (two) Medical capsule times Branch daily. UBIDECARENO 2017-03 Yes 100mg Take 100 U nivers NE (COQ-10 0-25 mg by ity of ORAL) 15:11: mouth. [place] 02 Medical Branch Cholecalcif 2017-03 Yes Take by Uni vers brian, 0-25 mouth. ity of Vitamin D3, 15:11: [place] (VITAMIN 02 Medical D-3) 5,000 Branch unit Tab risedronate 2017-03 Yes 150mg Take 150 [facility] nivers (ACTONEL) 0-25 mg by ity of 150 mg 15:11: mouth once [place] tablet 02 every Medical month. Branch FLUTICASONE 2017-03 Yes Use in [facility] ers PROPIONATE 0-25 each ity of (FLONASE 15:11: nostril as [place] as NASAL) 02 needed. Medical Branch biotin 2017-03 Yes 1{dose} Take 1 [facility] s 1,000 mcg 0-25 Dose by ity of Chew 15:11: mouth daily. Medical Branch alendronate 2017-03 Yes 70mg Take 70 mg [facility] 70 mg 0-25 by mouth ity of tablet 15:11: weekly. Medical Branch furosemide 2017-03 Yes 20mg Take 20 mg [facility] 20 mg 0-25 by mouth ity of tablet 15:11: daily. Medical Branch losartan 25 2017-03 Yes 25mg Take 25 mg [facility] mg tablet 0-25 by mouth ity of 15:11: daily. Medical Branch amiodarone 2017-03 Yes 200mg Take 200 [facility] 200 mg 0-25 mg by ity of tablet 15:11: mouth daily. Medical Branch rivaroxaban 2017-03 Yes Take by Uni vers (XARELTO) 0-25 mouth. ity of 20 mg 15:11: [place] tablet Medical Branch Fenofibrate 2017-03 Yes 1{tbl} Take 1 Un hi 160 mg 0-25 tablet by ity of tablet 15:11: mouth every Medical evening. Branch travoprost 2017-03 Yes 1[drp] 1 Drop at [facility] (TRAVATAN 0-25 bedtime. ity of Z) 0.004 % 15:11: [place] ophthalmic Medical solution Branch propylene 2017-03 Yes 1[drp] Place 1 [facility] vers glycol 0-25 Drop in ity of (SYSTANE 15:11: each eye as needed. Medica l OPHTHALMIC) Branch biotin 2017-03 Yes 1{dose} Take 1 [facility] s 1,000 mcg 0-25 Dose by ity of Chew 15:11: mouth daily. Medical Branch alendronate 2017-03 Yes 70mg Take 70 mg [facility] 70 mg 0-25 by mouth ity of tablet 15:11: weekly. Medical Branch furosemide 2017-03 Yes 20mg Take 20 mg [facility] 20 mg 0-25 by mouth ity of tablet 15:11: daily. Medical Branch losartan 25 2017-03 Yes 25mg Take 25 mg [facility] mg tablet 0-25 by mouth ity of 15:11: daily. Medical Branch amiodarone 2017-03 Yes 200mg Take 200 Un hi 200 mg 0-25 mg by ity of tablet 15:11: mouth [place] daily. Medical Branch rivaroxaban 2017-03 Yes Take by [facility] vers (XARELTO) 0-25 mouth. ity of 20 mg 15:11: [place] tablet Medical Branch Fenofibrate 2017-03 Yes 1{tbl} Take 1 Un hi 160 mg 0-25 tablet by ity of tablet 15:11: mouth [place] every Medical evening. Branch travoprost 2017-03 Yes 1[drp] 1 Drop at [facility] (TRAVATAN 0-25 bedtime. ity of Z) 0.004 % 15:11: [place] ophthalmic Medical solution Branch propylene 2017-03 Yes 1[drp] Place 1 [facility] vers glycol 0-25 Drop in ity of (SYSTANE 15:11: each eye [place] BALANCE as needed. Medica l OPHTHALMIC) Branch biotin 2017-03 Yes 1{dose} Take 1 [facility] s 1,000 mcg 0-25 Dose by ity of Chew 15:11: mouth daily. Medical Branch alendronate 2017-03 Yes 70mg Take 70 mg [facility] 70 mg 0-25 by mouth ity of tablet 15:11: weekly. [place] [facility] furosemide 2017-03 Yes 20mg Take 20 mg [facility] nivers 20 mg 0-25 by mouth ity of tablet 15:11: daily. Medical Branch losartan 25 2017-03 Yes 25mg Take 25 mg [facility] mg tablet 0-25 by mouth ity of 15:11: daily. Medical Branch amiodarone 2017-03 Yes 200mg Take 200 Un hi 200 mg 0-25 mg by ity of tablet 15:11: mouth [place] daily. Medical Branch rivaroxaban 2017-03 Yes Take by [facility] vers (XARELTO) 0-25 mouth. ity of 20 mg 15:11: [place] tablet Medical Branch Fenofibrate 2017-03 Yes 1{tbl} Take 1 [facility] hi 160 mg 0-25 tablet by ity of tablet 15:11: mouth [place] every Medical evening. Branch travoprost 2017-03 Yes 1[drp] 1 Drop at [facility] (TRAVATAN 0-25 bedtime. ity of Z) 0.004 % 15:11: [place] ophthalmic Medical solution Branch propylene 2017-03 Yes 1[drp] Place 1 [facility] vers glycol 0-25 Drop in ity of (SYSTANE 15:11: each eye [place] BALANCE 01 as needed. Medica l OPHTHALMIC) Branch biotin 2017-03 Yes 1{dose} Take 1 [facility] s 1,000 mcg 0-25 Dose by ity of Chew 15:11: mouth [place] 01 daily. Medical Branch alendronate 2017-03 Yes 70mg Take 70 mg [facility] 70 mg 0-25 by mouth ity of tablet 15:11: weekly. Medical Branch furosemide 2017-03 Yes 20mg Take 20 mg [facility]ivers 20 mg 0-25 by mouth ity of tablet 15:11: daily. Medical Branch losartan 25 2017-03 Yes 25mg Take 25 mg [facility] mg tablet 0-25 by mouth ity of 15:11: daily. Medical Branch amiodarone 2017-03 Yes 200mg Take 200 [facility] hi 200 mg 0-25 mg by ity of tablet 15:11: mouth [place] daily. Medical Branch rivaroxaban 2017-03 Yes Take by [facility] vers (XARELTO) 0-25 mouth. ity of 20 mg 15:11: [place] tablet Medical Branch Fenofibrate 2017-03 Yes 1{tbl} Take 1 [facility] hi 160 mg 0-25 tablet by ity of tablet 15:11: mouth [place] every Medical evening. Branch travoprost 2017-03 Yes 1[drp] 1 Drop at [facility] (TRAVATAN 0-25 bedtime. ity of Z) 0.004 % 15:11: [place] ophthalmic Medical solution Branch propylene 2017-03 Yes 1[drp] Place 1 [facility] vers glycol 0-25 Drop in ity of (SYSTANE 15:11: each eye [place] BALANCE 01 as needed. Medica l OPHTHALMIC) Branch biotin 2017-03 Yes 1{dose} Take 1 [facility] s 1,000 mcg 0-25 Dose by ity of Chew 15:11: mouth [place] daily. Medical Branch alendronate 2017-03 Yes 70mg Take 70 mg [facility] 70 mg 0-25 by mouth ity of tablet 15:11: weekly. Medical Branch furosemide 2017-03 Yes 20mg Take 20 mg [facility] 20 mg 0-25 by mouth ity of tablet 15:11: daily. Medical Branch losartan 25 2017-03 Yes 25mg Take 25 mg [facility] mg tablet 0-25 by mouth ity of 15:11: daily. Medical Branch amiodarone 2017-03 Yes 200mg Take 200 Un hi 200 mg 0-25 mg by ity of tablet 15:11: mouth [place] daily. Medical Branch rivaroxaban 2017-03 Yes Take by [facility] vers (XARELTO) 0-25 mouth. ity of 20 mg 15:11: [place] tablet Medical Branch Fenofibrate 2017-03 Yes 1{tbl} Take 1 [facility] hi 160 mg 0-25 tablet by ity of tablet 15:11: mouth [place] every Medical evening. Branch travoprost 2017-03 Yes 1[drp] 1 Drop at [facility] (TRAVATAN 0-25 bedtime. ity of Z) 0.004 % 15:11: [place] ophthalmic Medical solution Branch propylene 2017-03 Yes 1[drp] Place 1 [facility] vers glycol 0-25 Drop in ity of (SYSTANE 15:11: each eye [place] BALANCE as needed. Medica l OPHTHALMIC) Branch biotin 2017-03 Yes 1{dose} Take 1 [facility] s 1,000 mcg 0-25 Dose by ity of Chew 15:11: mouth daily. Medical Branch alendronate 2017-03 Yes 70mg Take 70 mg [facility] 70 mg 0-25 by mouth ity of tablet 15:11: weekly. Medical Branch furosemide 2017-03 Yes 20mg Take 20 mg [facility] 20 mg 0-25 by mouth ity of tablet 15:11: daily. Medical Branch losartan 25 2017-03 Yes 25mg Take 25 mg [facility] mg tablet 0-25 by mouth ity of 15:11: daily. Medical Branch amiodarone 2017-03 Yes 200mg Take 200 Un hi 200 mg 0-25 mg by ity of tablet 15:11: mouth [place] daily. Medical Branch rivaroxaban 2017-03 Yes Take by [facility] vers (XARELTO) 0-25 mouth. ity of 20 mg 15:11: [place] tablet Medical Branch Fenofibrate 2017-03 Yes 1{tbl} Take 1 [facility] hi 160 mg 0-25 tablet by ity of tablet 15:11: mouth [place] every Medical evening. Branch travoprost 2017-03 Yes 1[drp] 1 Drop at [facility] (TRAVATAN 0-25 bedtime. ity of Z) 0.004 % 15:11: [place] ophthalmic Medical solution Branch propylene 2017-03 Yes 1[drp] Place 1 [facility] vers glycol 0-25 Drop in ity of (SYSTANE 15:11: each eye [place] BALANCE as needed. Medica l OPHTHALMIC) Branch biotin 2017-03 Yes 1{dose} Take 1 [facility] s 1,000 mcg 0-25 Dose by ity of Chew 15:11: mouth [place] daily. Medical Branch alendronate 2017-03 Yes 70mg Take 70 mg [facility] 70 mg 0-25 by mouth ity of tablet 15:11: weekly. Medical Branch furosemide 2017-03 Yes 20mg Take 20 mg [facility] 20 mg 0-25 by mouth ity of tablet 15:11: daily. Medical [facility] alendronate 2017-03 Yes 70mg Take 70 mg [facility] 70 mg 0-25 by mouth ity of tablet 15:11: weekly. Medical Branch furosemide 2017-03 Yes 20mg Take 20 mg [facility] 20 mg 0-25 by mouth ity of tablet 15:11: daily. [place] [facility] losartan 25 2017-03 Yes 25mg Take 25 mg [facility] mg tablet 0-25 by mouth ity of 15:11: daily. Medical Branch amiodarone 2017-03 Yes 200mg Take 200 [facility] 200 mg 0-25 mg by ity of tablet 15:11: mouth [place] daily. Medical Branch rivaroxaban 2017-03 Yes Take by [facility] vers (XARELTO) 0-25 mouth. ity of 20 mg 15:11: [place] tablet Medical Branch Fenofibrate 2017-03 Yes 1{tbl} Take 1 [facility] hi 160 mg 0-25 tablet by ity of tablet 15:11: mouth [place] every Medical evening. Branch travoprost 2017-03 Yes 1[drp] 1 Drop at [facility] (TRAVATAN 0-25 bedtime. ity of Z) 0.004 % 15:11: [place] ophthalmic Medical solution Branch propylene 2017-03 Yes 1[drp] Place 1 [facility] vers glycol 0-25 Drop in ity of (SYSTANE 15:11: each eye [place] BALANCE as needed. Medica l OPHTHALMIC) Branch biotin 2017-03 Yes 1{dose} Take 1 [facility] s 1,000 mcg 0-25 Dose by ity of Chew 15:11: mouth [place] daily. Medical Branch losartan 25 2017-03 Yes 25mg Take 25 mg [facility] mg tablet 0-25 by mouth ity of 15:11: daily. Medical Branch amiodarone 2017-03 Yes 200mg Take 200 [facility] 200 mg 0-25 mg by ity of tablet 15:11: mouth [place] daily. Medical [facility] alendronate 2017-03 Yes 70mg Take 70 mg [facility] 70 mg 0-25 by mouth ity of tablet 15:11: weekly. Medical Branch furosemide 2017-03 Yes 20mg Take 20 mg [facility] 20 mg 0-25 by mouth ity of tablet 15:11: daily. Medical Branch rivaroxaban 2017-03 Yes Take by [facility] vers (XARELTO) 0-25 mouth. ity of 20 mg 15:11: [place] tablet Medical Branch losartan 25 2017-03 Yes 25mg Take 25 mg [facility] mg tablet 0-25 by mouth ity of 15:11: daily. Medical Branch amiodarone 2017-03 Yes 200mg Take 200 Un hi 200 mg 0-25 mg by ity of tablet 15:11: mouth daily. Medical Branch rivaroxaban 2017-03 Yes Take by [facility] vers (XARELTO) 0-25 mouth. ity of 20 mg 15:11: [place] tablet Medical Branch Fenofibrate 2017-03 Yes 1{tbl} Take 1 [facility] hi 160 mg 0-25 tablet by ity of tablet 15:11: mouth [place] every Medical evening. Branch travoprost 2017-03 Yes 1[drp] 1 Drop at [facility] (TRAVATAN 0-25 bedtime. ity of Z) 0.004 % 15:11: [place] ophthalmic 01 Medical solution Branch propylene 2017-03 Yes 1[drp] Place 1 [facility] vers glycol 0-25 Drop in ity of (SYSTANE 15:11: each eye as needed. Medica l OPHTHALMIC) Branch biotin 2017-03 Yes 1{dose} Take 1 [facility] s 1,000 mcg 0-25 Dose by ity of Chew 15:11: mouth [place] daily. Medical Branch Fenofibrate 2017-03 Yes 1{tbl} Take 1 Un hi 160 mg 0-25 tablet by ity of tablet 15:11: mouth [place] 01 every Medical evening. Branch travoprost 2017-03 Yes 1[drp] 1 Drop at [facility] (TRAVATAN 0-25 bedtime. ity of Z) 0.004 % 15:11: [place] ophthalmic Medical solution Branch alendronate 2017-03 Yes 70mg Take 70 mg [facility] 70 mg 0-25 by mouth ity of tablet 15:11: weekly. Medical Branch furosemide 2017-03 Yes 20mg Take 20 mg [facility] 20 mg 0-25 by mouth ity of tablet 15:11: daily. Medical Branch losartan 25 2017-03 Yes 25mg Take 25 mg [facility] mg tablet 0-25 by mouth ity of 15:11: daily. Medical Branch amiodarone 2017-03 Yes 200mg Take 200 Un hi 200 mg 0-25 mg by ity of tablet 15:11: mouth [place] daily. Medical Branch propylene 2017-03 Yes 1[drp] Place 1 [facility] vers glycol 0-25 Drop in ity of (SYSTANE 15:11: each eye [place] BALANCE as needed. Medica l OPHTHALMIC) Branch rivaroxaban 2017-03 Yes Take by [facility] vers (XARELTO) 0-25 mouth. ity of 20 mg 15:11: [place] tablet Medical Branch Fenofibrate 2017-03 Yes 1{tbl} Take 1 Un hi 160 mg 0-25 tablet by ity of tablet 15:11: mouth [place] every Medical evening. Branch travoprost 2017-03 Yes 1[drp] 1 Drop at [facility] (TRAVATAN 0-25 bedtime. ity of Z) 0.004 % 15:11: [place] ophthalmic Medical solution Branch propylene 2017-03 Yes 1[drp] Place 1 [facility] vers glycol 0-25 Drop in ity of (SYSTANE 15:11: each eye [place] BALANCE as needed. Medica l OPHTHALMIC) Branch biotin 2017-03 Yes 1{dose} Take 1 [facility] s 1,000 mcg 0-25 Dose by ity of Chew 15:11: mouth [place] daily. Medical Branch biotin 2017-03 Yes 1{dose} Take 1 [facility] s 1,000 mcg 0-25 Dose by ity of Chew 15:11: mouth [place] daily. Medical Branch alendronate 2017-03 Yes 70mg Take 70 mg [facility] 70 mg 0-25 by mouth ity of tablet 15:11: weekly. Medical Branch furosemide 2017-03 Yes 20mg Take 20 mg [facility] nivers 20 mg 0-25 by mouth ity of tablet 15:11: daily. Medical Branch losartan 25 2017-03 Yes 25mg Take 25 mg [facility] mg tablet 0-25 by mouth ity of 15:11: daily. Medical Branch amiodarone 2017-03 Yes 200mg Take 200 Un hi 200 mg 0-25 mg by ity of tablet 15:11: mouth [place] daily. Medical Branch rivaroxaban 2017-03 Yes Take by [facility] vers (XARELTO) 0-25 mouth. ity of 20 mg 15:11: [place] tablet Medical Branch Fenofibrate 2017-03 Yes 1{tbl} Take 1 Un hi 160 mg 0-25 tablet by ity of tablet 15:11: mouth [place] every Medical evening. Branch travoprost 2017-03 Yes 1[drp] 1 Drop at [facility] (TRAVATAN 0-25 bedtime. ity of Z) 0.004 % 15:11: [place] ophthalmic Medical solution Branch propylene 2017-03 Yes 1[drp] Place 1 [facility] vers glycol 0-25 Drop in ity of (SYSTANE 15:11: each eye as needed. Medica l OPHTHALMIC) Branch biotin 2017-03 Yes 1{dose} Take 1 [facility] s 1,000 mcg 0-25 Dose by ity of Chew 15:11: mouth [place] daily. Medical Branch alendronate 2017-03 Yes 70mg Take 70 mg [facility] 70 mg 0-25 by mouth ity of tablet 15:11: weekly. [place] [facility] furosemide 2017-03 Yes 20mg Take 20 mg [facility]ivers 20 mg 0-25 by mouth ity of tablet 15:11: daily. [place] [facility] losartan 25 2017-03 Yes 25mg Take 25 mg [facility] mg tablet 0-25 by mouth ity of 15:11: daily. Medical Branch amiodarone 2017-03 Yes 200mg Take 200 Un hi 200 mg 0-25 mg by ity of tablet 15:11: mouth [place] daily. Medical Branch rivaroxaban 2017-03 Yes Take by Un hi (XARELTO) 0-25 mouth. ity of 20 mg 15:11: [place] tablet Medical Branch Fenofibrate 2017-03 Yes 1{tbl} Take 1 Un hi 160 mg 0-25 tablet by ity of tablet 15:11: mouth [place] every Medical evening. Branch travoprost 2017-03 Yes 1[drp] 1 Drop at [facility] (TRAVATAN 0-25 bedtime. ity of Z) 0.004 % 15:11: [place] ophthalmic Medical solution Branch propylene 2017-03 Yes 1[drp] Place 1 [facility] vers glycol 0-25 Drop in ity of (SYSTANE 15:11: each eye [place] BALANCE 01 as needed. Medica l OPHTHALMIC) Branch biotin 2017-03 Yes 1{dose} Take 1 Un[facility] s 1,000 mcg 0-25 Dose by ity of Chew 15:11: mouth [place] daily. Medical Branch alendronate 2017-03 Yes 70mg Take 70 mg [facility] 70 mg 0-25 by mouth ity of tablet 15:11: weekly. Medical Branch furosemide 2017-03 Yes 20mg Take 20 mg [facility] nivers 20 mg 0-25 by mouth ity of tablet 15:11: daily. Medical Branch losartan 25 2017-03 Yes 25mg Take 25 mg [facility] mg tablet 0-25 by mouth ity of 15:11: daily. Medical Branch amiodarone 2017-03 Yes 200mg Take 200 Un hi 200 mg 0-25 mg by ity of tablet 15:11: mouth [place] daily. Medical Branch rivaroxaban 2017-03 Yes Take by [facility] vers (XARELTO) 0-25 mouth. ity of 20 mg 15:11: [place] tablet Medical Branch Fenofibrate 2017-03 Yes 1{tbl} Take 1 Un hi 160 mg 0-25 tablet by ity of tablet 15:11: mouth [place] 01 every Medical evening. Branch travoprost 2017-03 Yes 1[drp] 1 Drop at [facility] (TRAVATAN 0-25 bedtime. ity of Z) 0.004 % 15:11: ophthalmic Medical solution Branch propylene 2017-03 Yes 1[drp] Place 1 [facility] vers glycol 0-25 Drop in ity of (SYSTANE 15:11: each eye [place] BALANCE 01 as needed. Medica l OPHTHALMIC) Branch biotin 2017-03 Yes 1{dose} Take 1 Un[facility] s 1,000 mcg 0-25 Dose by ity of Chew 15:11: mouth [place] daily. Medical Branch furosemide 2017-03 Yes 20mg Take 20 mg [facility] nivers 20 mg 0-25 by mouth ity of tablet 15:11: daily. Medical Branch losartan 25 2017-03 Yes 25mg Take 25 mg [facility] mg tablet 0-25 by mouth ity of 15:11: daily. Medical Branch amiodarone 2017-03 Yes 200mg Take 200 Un hi 200 mg 0-25 mg by ity of tablet 15:11: mouth [place] daily. Medical Branch travoprost 2017-03 Yes 1[drp] 1 Drop at [facility] (TRAVATAN 0-25 bedtime. ity of Z) 0.004 % 15:11: [place] ophthalmic Medical solution Branch propylene 2017-03 Yes 1[drp] Place 1 [facility] vers glycol 0-25 Drop in ity of (SYSTANE 15:11: each eye [place] BALANCE as needed. Medica l OPHTHALMIC) Branch biotin 2017-03 Yes 1{dose} Take 1 [facility] s 1,000 mcg 0-25 Dose by ity of Chew 15:11: mouth [place] daily. Medical Branch furosemide 2017-03 Yes 20mg Take 20 mg [facility] nivers 20 mg 0-25 by mouth ity of tablet 15:11: daily. Medical Branch losartan 25 2017-03 Yes 25mg Take 25 mg [facility] mg tablet 0-25 by mouth ity of 15:11: daily. Medical Branch amiodarone 2017-03 Yes 200mg Take 200 Un hi 200 mg 0-25 mg by ity of tablet 15:11: mouth [place] daily. Medical Branch travoprost 2017-03 Yes 1[drp] 1 Drop at [facility] (TRAVATAN 0-25 bedtime. ity of Z) 0.004 % 15:11: ophthalmic Medical solution Branch propylene 2017-03 Yes 1[drp] Place 1 [facility] vers glycol 0-25 Drop in ity of (SYSTANE 15:11: each eye [place] BALANCE as needed. Medica l OPHTHALMIC) Branch biotin 2017-03 Yes 1{dose} Take 1 [facility] s 1,000 mcg 0-25 Dose by ity of Chew 15:11: mouth [place] daily. Medical Branch furosemide 2017-03 Yes 20mg Take 20 mg [facility] nivers 20 mg 0-25 by mouth ity of tablet 15:11: daily. Medical Branch losartan 25 2017-03 Yes 25mg Take 25 mg [facility] mg tablet 0-25 by mouth ity of 15:11: daily. Medical Branch amiodarone 2017-03 Yes 200mg Take 200 Un hi 200 mg 0-25 mg by ity of tablet 15:11: mouth [place] 01 daily. Medical Branch travoprost 2017-03 Yes 1[drp] 1 Drop at [facility] (TRAVATAN 0-25 bedtime. ity of Z) 0.004 % 15:11: [place] ophthalmic Medical solution Branch propylene 2017-03 Yes 1[drp] Place 1 [facility] vers glycol 0-25 Drop in ity of (SYSTANE 15:11: each eye [place] BALANCE 01 as needed. Medica l OPHTHALMIC) Branch biotin 2017-03 Yes 1{dose} Take 1 Un[facility] s 1,000 mcg 0-25 Dose by ity of Chew 15:11: mouth [place] 01 daily. Medical Branch furosemide 2017-03 Yes 20mg Take 20 mg [facility] nivers 20 mg 0-25 by mouth ity of tablet 15:11: daily. Medical Branch losartan 25 2017-03 Yes 25mg Take 25 mg [facility] mg tablet 0-25 by mouth ity of 15:11: daily. Medical Branch amiodarone 2017-03 Yes 200mg Take 200 Un hi 200 mg 0-25 mg by ity of tablet 15:11: mouth [place] 01 daily. Medical Branch travoprost 2017-03 Yes 1[drp] 1 Drop at [facility] (TRAVATAN 0-25 bedtime. ity of Z) 0.004 % 15:11: ophthalmic Medical solution Branch propylene 2017-03 Yes 1[drp] Place 1 [facility] vers glycol 0-25 Drop in ity of (SYSTANE 15:11: each eye [place] BALANCE 01 as needed. Medica l OPHTHALMIC) Branch biotin 2017-03 Yes 1{dose} Take 1 [facility] s 1,000 mcg 0-25 Dose by ity of Chew 15:11: mouth [place] 01 daily. Medical Branch furosemide 2017-03 Yes 20mg Take 20 mg [facility] 20 mg 0-25 by mouth ity of tablet 15:11: daily. Medical Branch losartan 25 2017-03 Yes 25mg Take 25 mg [facility] mg tablet 0-25 by mouth ity of 15:11: daily. Medical Branch amiodarone 2017-03 Yes 200mg Take 200 Un hi 200 mg 0-25 mg by ity of tablet 15:11: mouth [place] 01 daily. Medical Branch travoprost 2017-03 Yes 1[drp] 1 Drop at [facility] (TRAVATAN 0-25 bedtime. ity of Z) 0.004 % 15:11: [place] ophthalmic Medical solution Branch propylene 2017-03 Yes 1[drp] Place 1 [facility] vers glycol 0-25 Drop in ity of (SYSTANE 15:11: each eye [place] BALANCE as needed. Medica l OPHTHALMIC) Branch biotin 2017-03 Yes 1{dose} Take 1 [facility] s 1,000 mcg 0-25 Dose by ity of Chew 15:11: mouth daily. Medical Branch furosemide 2017-03 Yes 20mg Take 20 mg [facility] 20 mg 0-25 by mouth ity of tablet 15:11: daily. Medical Branch losartan 25 2017-03 Yes 25mg Take 25 mg [facility] mg tablet 0-25 by mouth ity of 15:11: daily. Medical Branch amiodarone 2017-03 Yes 200mg Take 200 [facility] 200 mg 0-25 mg by ity of tablet 15:11: mouth daily. Medical Branch travoprost 2017-03 Yes 1[drp] 1 Drop at [facility] (TRAVATAN 0-25 bedtime. ity of Z) 0.004 % 15:11: [place] ophthalmic Medical solution Branch propylene 2017-03 Yes 1[drp] Place 1 [facility] vers glycol 0-25 Drop in ity of (SYSTANE 15:11: each eye [place] BALANCE as needed. Medica l OPHTHALMIC) Branch biotin 2017-03 Yes 1{dose} Take 1 [facility] s 1,000 mcg 0-25 Dose by ity of Chew 15:11: mouth daily. Medical Branch alendronate 2017-03 Yes 70mg Take 70 mg [facility] 70 mg 0-25 by mouth ity of tablet 15:11: weekly. Medical Branch furosemide 2017-03 Yes 20mg Take 20 mg [facility] 20 mg 0-25 by mouth ity of tablet 15:11: daily. Medical Branch losartan 25 2017-03 Yes 25mg Take 25 mg [facility] mg tablet 0-25 by mouth ity of 15:11: daily. Medical Branch amiodarone 2017-03 Yes 200mg Take 200 Un [facility] 200 mg 0-25 mg by ity of tablet 15:11: mouth daily. Medical Branch travoprost 2017-03 Yes 1[drp] 1 Drop at [facility] (TRAVATAN 0-25 bedtime. ity of Z) 0.004 % 15:11: [place] ophthalmic Medical solution Branch propylene 2017-03 Yes 1[drp] Place 1 [facility] vers glycol 0-25 Drop in ity of (SYSTANE 15:11: each eye [place] BALANCE as needed. Medica l OPHTHALMIC) Branch biotin 2017-03 Yes 1{dose} Take 1 [facility] s 1,000 mcg 0-25 Dose by ity of Chew 15:11: mouth [place] 01 daily. Medical Branch furosemide 2017-03 Yes 20mg Take 20 mg [facility]ivers 20 mg 0-25 by mouth ity of tablet 15:11: daily. Medical Branch losartan 25 2017-03 Yes 25mg Take 25 mg [facility] mg tablet 0-25 by mouth ity of 15:11: daily. Medical Branch amiodarone 2017-03 Yes 200mg Take 200 Un hi 200 mg 0-25 mg by ity of tablet 15:11: mouth [place] 01 daily. Medical Branch furosemide 2017-03 Yes 20mg Take 20 mg [facility] nivers 20 mg 0-25 by mouth ity of tablet 15:11: daily. Medical Branch losartan 25 2017-03 Yes 25mg Take 25 mg [facility] mg tablet 0-25 by mouth ity of 15:11: daily. Medical Branch amiodarone 2017-03 Yes 200mg Take 200 Un hi 200 mg 0-25 mg by ity of tablet 15:11: mouth [place] daily. Medical Branch travoprost 2017-03 Yes 1[drp] 1 Drop at [facility] (TRAVATAN 0-25 bedtime. ity of Z) 0.004 % 15:11: [place] ophthalmic Medical solution Branch propylene 2017-03 Yes 1[drp] Place 1 [facility] vers glycol 0-25 Drop in ity of (SYSTANE 15:11: each eye [place] BALANCE as needed. Medica l OPHTHALMIC) Branch biotin 2017-03 Yes 1{dose} Take 1 Un[facility] s 1,000 mcg 0-25 Dose by ity of Chew 15:11: mouth [place] 01 daily. Medical Branch rivaroxaban 2017-03 Yes Take by [facility] vers (XARELTO) 0-25 mouth. ity of 20 mg 15:11: [place] tablet Medical Branch Fenofibrate 2017-03 Yes 1{tbl} Take 1 Un hi 160 mg 0-25 tablet by ity of tablet 15:11: mouth [place] 01 every Medical evening. Branch travoprost 2017-03 Yes 1[drp] 1 Drop at [facility] (TRAVATAN 0-25 bedtime. ity of Z) 0.004 % 15:11: [place] ophthalmic Medical solution Branch propylene 2017-03 Yes 1[drp] Place 1 [facility] vers glycol 0-25 Drop in ity of (SYSTANE 15:11: each eye [place] BALANCE as needed. Medica l OPHTHALMIC) Branch biotin 2017-03 Yes 1{dose} Take 1 Un[facility] s 1,000 mcg 0-25 Dose by ity of Chew 15:11: mouth [place] daily. Medical Branch alendronate 2017-03 Yes 70mg Take 70 mg [facility] 70 mg 0-25 by mouth ity of tablet 15:11: weekly. [place] [address] Medical Branch furosemide 2017-03 Yes 20mg Take 20 mg [facility] nivers 20 mg 0-25 by mouth ity of tablet 15:11: daily. [place] [address] Medical Branch losartan 25 2017-03 Yes 25mg Take 25 mg [facility] mg tablet 0-25 by mouth ity of 15:11: daily. [place] [facility] amiodarone 2017-03 Yes 200mg Take 200 Un hi 200 mg 0-25 mg by ity of tablet 15:11: mouth [place] daily. Medical Branch rivaroxaban 2017-03 Yes Take by [facility] vers (XARELTO) 0-25 mouth. ity of 20 mg 15:11: [place] tablet 01 Medical Branch Fenofibrate 2017-03 Yes 1{tbl} Take 1 Un hi 160 mg 0-25 tablet by ity of tablet 15:11: mouth [place] every Medical evening. Branch travoprost 2017-03 Yes 1[drp] 1 Drop at [facility] (TRAVATAN 0-25 bedtime. ity of Z) 0.004 % 15:11: ophthalmic Medical solution Branch propylene 2017-03 Yes 1[drp] Place 1 [facility] vers glycol 0-25 Drop in ity of (SYSTANE 15:11: each eye [place] BALANCE as needed. Medica l OPHTHALMIC) Branch Lactobac 2017-03 Yes Take 1 [facility] no.30/Bifid 0-25 TAB-CAP/M2 it y of obact no.4 10:12: by mouth [place] as (ULTIMATE 27 daily. Medical [facility] Branch PROBIOTIC ORAL) Lactobac 2017-03 Yes Take 1 [facility] no.30/Bifid 0-25 TAB-CAP/M2 it y of obact no.4 10:12: by mouth [place] [facility] (ULTIMATE 27 daily. Medical [facility] PROBIOTIC ORAL) Lactobac 2017-03 Yes Take 1 [facility] no.30/Bifid 0-25 TAB-CAP/M2 it y of obact no.4 10:12: by mouth [place] as (ULTIMATE 27 daily. Medical [facility] PROBIOTIC ORAL) Lactobac 2017-03 Yes Take 1 [facility] no.30/Bifid 0-25 TAB-CAP/M2 it y of obact no.4 10:12: by mouth [place] as (ULTIMATE 27 daily. Medical [facility] PROBIOTIC ORAL) Lactobac 2017-03 Yes Take 1 [facility] no.30/Bifid 0-25 TAB-CAP/M2 it y of obact no.4 10:12: by mouth [place] as (ULTIMATE 27 daily. Medical [facility] PROBIOTIC ORAL) Lactobac 2017-03 Yes Take 1 [facility] no.30/Bifid 0-25 TAB-CAP/M2 it y of obact no.4 10:12: by mouth [place] as (ULTIMATE 27 daily. Medical [facility] PROBIOTIC ORAL) Lactobac 2017-03 Yes Take 1 [facility] no.30/Bifid 0-25 TAB-CAP/M2 it y of obact no.4 10:12: by mouth [place] [facility] (ULTIMATE 27 daily. Medical [facility] PROBIOTIC ORAL) carvedilol 2017-03 Yes 3.125mg Take 3.125 [facility] (COREG) 0-25 mg by ity of 3.125 mg 10:11: mouth 2 [place] tablet 02 (two) Medical times Branch daily with meals. DOCOSAHEXAN 2017-03 Yes Take by Uni vers OIC 0-25 mouth ity of ACID/EPA 10:11: daily. [place] (FISH OIL 02 Medical ORAL) Branch Cinnamon 2017-03 Yes 1000mg Take 1,000 U nivers Bark 0-25 mg by ity of (CINNAMON) 10:11: mouth [place] 500 [place] Cap 02 (two) Medical times Branch daily. dabigatran 2017- Yes 150mg Take 150 Un hi etexilate 0-25 mg by ity of (PRADAXA) 10:11: mouth 2 [place] 150 mg 02 (two) Medical capsule times Branch daily. UBIDECARENO 2017- Yes 100mg Take 100 U nivers NE (COQ-10 0-25 mg by ity of ORAL) 10:11: mouth. [place] 02 Medical Branch Cholecalcif 2017-03 Yes Take by Uni vers brian, 0-25 mouth. ity of Vitamin D3, 10:11: [place] (VITAMIN 02 Medical D-3) 5,000 Branch unit Tab risedronate 2017-03 Yes 150mg Take 150 U nivers (ACTONEL) 0-25 mg by ity of 150 mg 10:11: mouth once [place] tablet 02 every Medical month. Branch FLUTICASONE 2017-03 Yes Use in Univ ers PROPIONATE 0-25 each ity of (FLONASE 10:11: nostril as Mike as NASAL) 02 needed. Medical Branch levocetiriz 2017-03 Yes 5mg Take 5 mg U nivers ine (XYZAL) 0-25 by mouth ity of 5 mg tablet 10:11: every [place] 02 evening. Medical Branch ipratropium 2017-03 Yes 2{spray Use 2 Un hi 42 mcg 0-25 } Sprays in ity of (0.06 %) 10:11: each [place] nasal spray 02 nostril 4 Med ical (four) Branch times daily. carvedilol 2017-03 Yes 3.125mg Take 3.125 Univers (COREG) 0-25 mg by ity of 3.125 mg 10:11: mouth 2 [place] tablet 02 (two) Medical times Branch daily with meals. DOCOSAHEXAN 2017-03 Yes Take by Uni vers OIC 0-25 mouth ity of ACID/EPA 10:11: daily. [place] (FISH OIL 02 Medical ORAL) Branch Cinnamon 2017-03 Yes 1000mg Take 1,000 U nivers Bark 0-25 mg by ity of (CINNAMON) 10:11: mouth 2 [place] 500 mg Cap 02 (two) Medical times Branch daily. dabigatran 2017-03 Yes 150mg Take 150 Un hi etexilate 0-25 mg by ity of (PRADAXA) 10:11: mouth 2 [place] 150 mg 02 (two) Medical capsule times Branch daily. UBIDECARENO 2017-03 Yes 100mg Take 100 U nivers NE (COQ-10 0-25 mg by ity of ORAL) 10:11: mouth. [place] [address] Medical Branch Cholecalcif 2017-03 Yes Take by Uni vers brian, 0-25 mouth. ity of Vitamin D3, 10:11: [place] (VITAMIN 02 Medical D-3) 5,000 Branch unit Tab risedronate 2017-03 Yes 150mg Take 150 U nivers (ACTONEL) 0-25 mg by ity of 150 mg 10:11: mouth once [place] tablet 02 every Medical month. Branch FLUTICASONE 2017-03 Yes Use in Univ ers PROPIONATE 0-25 each ity of (FLONASE 10:11: nostril as [place] as NASAL) 02 needed. Medical Branch levocetiriz 2017-03 Yes 5mg Take 5 mg U nivers ine (XYZAL) 0-25 by mouth ity of 5 mg tablet 10:11: every [place] 02 evening. Medical Branch ipratropium 2017-03 Yes 2{spray Use 2 Un hi 42 mcg 0-25 } Sprays in ity of (0.06 %) 10:11: each [place] nasal spray 02 nostril 4 Med ical (four) Branch times daily. carvedilol 2017-03 Yes 3.125mg Take 3.125 Univers (COREG) 0-25 mg by ity of 3.125 mg 10:11: mouth 2 [place] tablet 02 (two) Medical times Branch daily with meals. DOCOSAHEXAN 2017-03 Yes Take by Uni vers OIC 0-25 mouth ity of ACID/EPA 10:11: daily. [place] (FISH OIL 02 Medical ORAL) Branch Cinnamon 2017-03 Yes 1000mg Take 1,000 U nivers Bark 0-25 mg by ity of (CINNAMON) 10:11: mouth 2 [place] 500 mg Cap 02 (two) Medical times Branch daily. dabigatran 2017-03 Yes 150mg Take 150 Un hi etexilate 0-25 mg by ity of (PRADAXA) 10:11: mouth 2 [place] 150 mg 02 (two) Medical capsule times Branch daily. UBIDECARENO 2017-03 Yes 100mg Take 100 U nivers NE (COQ-10 0-25 mg by ity of ORAL) 10:11: mouth. [place] 02 Medical Branch Cholecalcif 2017-03 Yes Take by Uni vers brian, 0-25 mouth. ity of Vitamin D3, 10:11: [place] (VITAMIN 02 Medical D-3) 5,000 Branch unit Tab risedronate 2017-03 Yes 150mg Take 150 U nivers (ACTONEL) 0-25 mg by ity of 150 mg 10:11: mouth once [place] tablet 02 every Medical month. Branch FLUTICASONE 2017-03 Yes Use in Univ ers PROPIONATE 0-25 each ity of (FLONASE 10:11: nostril as [place] as NASAL) 02 needed. Medical Branch levocetiriz 2017-03 Yes 5mg Take 5 mg U nivers ine (XYZAL) 0-25 by mouth ity of 5 mg tablet 10:11: every [place] 02 evening. Medical Branch ipratropium 2017-03 Yes 2{spray Use 2 Un hi 42 mcg 0-25 } Sprays in ity of (0.06 %) 10:11: each [place] nasal spray 02 nostril 4 Med ical (four) Branch times daily. carvedilol 2017-03 Yes 3.125mg Take 3.125 Univers (COREG) 0-25 mg by ity of 3.125 mg 10:11: mouth 2 [place] tablet 02 (two) Medical times Branch daily with meals. DOCOSAHEXAN 2017-03 Yes Take by Uni vers OIC 0-25 mouth ity of ACID/EPA 10:11: daily. [place] (FISH OIL 02 Medical ORAL) Branch Cinnamon 2017-03 Yes 1000mg Take 1,000 U nivers Bark 0-25 mg by ity of (CINNAMON) 10:11: mouth 2 [place] 500 mg Cap 02 (two) Medical times Branch daily. dabigatran 2017-03 Yes 150mg Take 150 Un hi etexilate 0-25 mg by ity of (PRADAXA) 10:11: mouth 2 [place] 150 mg 02 (two) Medical capsule times Branch daily. UBIDECARENO 2017-03 Yes 100mg Take 100 U nivers NE (COQ-10 0-25 mg by ity of ORAL) 10:11: mouth. [place] 02 Medical Branch Cholecalcif 2017-03 Yes Take by Uni vers brian, 0-25 mouth. ity of Vitamin D3, 10:11: [place] (VITAMIN 02 Medical D-3) 5,000 Branch unit Tab risedronate 2017-03 Yes 150mg Take 150 U nivers (ACTONEL) 0-25 mg by ity of 150 mg 10:11: mouth once [place] tablet 02 every Medical month. Branch FLUTICASONE 2017-03 Yes [facility] PROPIONATE 0-25 each ity of (FLONASE 10:11: nostril as [place] as NASAL) 02 needed. Medical Branch levocetiriz 2017-03 Yes 5mg Take 5 mg U nivers ine (XYZAL) 0-25 by mouth ity of 5 mg tablet 10:11: every [place] evening. Medical Branch ipratropium 2017-03 Yes 2{spray Use 2 Un hi 42 mcg 0-25 } Sprays in ity of (0.06 %) 10:11: each [place] nasal spray 02 nostril 4 Med ical (four) Branch times daily. carvedilol 2017-03 Yes 3.125mg Take 3.125 Univers (COREG) 0-25 mg by ity of 3.125 mg 10:11: mouth 2 [place] tablet 02 (two) Medical times Branch daily with meals. DOCOSAHEXAN 2017-03 Yes Take by Uni vers OIC 0-25 mouth ity of ACID/EPA 10:11: daily. [place] (FISH OIL 02 Medical ORAL) Branch Cinnamon 2017-03 Yes 1000mg Take 1,000 U nivers Bark 0-25 mg by ity of (CINNAMON) 10:11: mouth 2 [place] 500 mg Cap 02 (two) Medical times Branch daily. dabigatran 2017-03 Yes 150mg Take 150 Un hi etexilate 0-25 mg by ity of (PRADAXA) 10:11: mouth 2 [place] 150 mg 02 (two) Medical capsule times Branch daily. UBIDECARENO 2017-03 Yes 100mg Take 100 U nivers NE (COQ-10 0-25 mg by ity of ORAL) 10:11: mouth. [place] 02 Medical Branch Cholecalcif 2017-03 Yes Take by Uni vers brian, 0-25 mouth. ity of Vitamin D3, 10:11: [place] (VITAMIN 02 Medical D-3) 5,000 Branch unit Tab risedronate 2017-03 Yes 150mg Take 150 U nivers (ACTONEL) 0-25 mg by ity of 150 mg 10:11: mouth once [place] tablet 02 every Medical month. Branch FLUTICASONE 2017-03 Yes Use in Univ ers PROPIONATE 0-25 each ity of (FLONASE 10:11: nostril as [place] as NASAL) 02 needed. Medical Branch levocetiriz 2017-03 Yes 5mg Take 5 mg U nivers ine (XYZAL) 0-25 by mouth ity of 5 mg tablet 10:11: every [place] 02 evening. Medical Branch ipratropium 2017-03 Yes 2{spray Use 2 Un hi 42 mcg 0-25 } Sprays in ity of (0.06 %) 10:11: each [place] nasal spray 02 nostril 4 Med ical (four) Branch times daily. carvedilol 2017-03 Yes 3.125mg Take 3.125 Univers (COREG) 0-25 mg by ity of 3.125 mg 10:11: mouth 2 [place] tablet 02 (two) Medical times Branch daily with meals. DOCOSAHEXAN 2017-03 Yes Take by Uni vers OIC 0-25 mouth ity of ACID/EPA 10:11: daily. [place] (FISH OIL 02 Medical ORAL) Branch Cinnamon 2017-03 Yes 1000mg Take 1,000 U nivers Bark 0-25 mg by ity of (CINNAMON) 10:11: mouth 2 [place] 500 mg Cap 02 (two) Medical times Branch daily. dabigatran 2017-03 Yes 150mg Take 150 Un hi etexilate 0-25 mg by ity of (PRADAXA) 10:11: mouth 2 [place] 150 mg 02 (two) Medical capsule times Branch daily. UBIDECARENO 2017-03 Yes 100mg Take 100 U nivers NE (COQ-10 0-25 mg by ity of ORAL) 10:11: mouth. [place] 02 Medical Branch Cholecalcif 2017-03 Yes Take by Uni vers brian, 0-25 mouth. ity of Vitamin D3, 10:11: [place] (VITAMIN 02 Medical D-3) 5,000 Branch unit Tab risedronate 2017-03 Yes 150mg Take 150 U nivers (ACTONEL) 0-25 mg by ity of 150 mg 10:11: mouth once [place] tablet 02 every Medical month. Branch FLUTICASONE 2017-03 Yes Use in Univ ers PROPIONATE 0-25 each ity of (FLONASE 10:11: nostril as [place] as NASAL) 02 needed. Medical Branch levocetiriz 2017-03 Yes 5mg Take 5 mg U nivers ine (XYZAL) 0-25 by mouth ity of 5 mg tablet 10:11: every [place] 02 evening. Medical Branch ipratropium 2017-03 Yes 2{spray Use 2 Un hi 42 mcg 0-25 } Sprays in ity of (0.06 %) 10:11: each [place] nasal spray 02 nostril 4 Med ical (four) Branch times daily. carvedilol 2017-03 Yes 3.125mg Take 3.125 Univers (COREG) 0-25 mg by ity of 3.125 mg 10:11: mouth 2 [place] tablet 02 (two) Medical times Branch daily with meals. DOCOSAHEXAN 2017-03 Yes Take by Uni vers OIC 0-25 mouth ity of ACID/EPA 10:11: daily. [place] (FISH OIL 02 Medical ORAL) Branch Cinnamon 2017-03 Yes 1000mg Take 1,000 U nivers Bark 0-25 mg by ity of (CINNAMON) 10:11: mouth 2 [place] 500 mg Cap 02 (two) Medical times Branch daily. dabigatran 2017-03 Yes 150mg Take 150 Un hi etexilate 0-25 mg by ity of (PRADAXA) 10:11: mouth 2 [place] 150 mg 02 (two) Medical capsule times Branch daily. UBIDECARENO 2017-03 Yes 100mg Take 100 U nivers NE (COQ-10 0-25 mg by ity of ORAL) 10:11: mouth. [place] Medical Branch Cholecalcif 2017-03 Yes Take by Uni vers brian, 0-25 mouth. ity of Vitamin D3, 10:11: [place] (VITAMIN [address] [place] [address] D-3) 5,000 Branch unit Tab risedronate 2017-03 Yes 150mg Take 150 U nivers (ACTONEL) 0-25 mg by ity of 150 mg 10:11: mouth once [place] tablet 02 every Medical month. Branch FLUTICASONE 2017-03 Yes Use in Univ ers PROPIONATE 0-25 each ity of (FLONASE 10:11: nostril as [place] as NASAL) 02 needed. Medical Branch levocetiriz 2017-03 Yes 5mg Take 5 mg U nivers ine (XYZAL) 0-25 by mouth ity of 5 mg tablet 10:11: every [place] 02 evening. Medical Branch ipratropium 2017-03 Yes 2{spray Use 2 Un hi 42 mcg 0-25 } Sprays in ity of (0.06 %) 10:11: each [place] nasal spray 02 nostril 4 Med ical (four) Branch times daily. furosemide 2017-03 Yes 20mg Take 20 mg U nivers 20 mg 0-25 by mouth ity of tablet 10:11: daily. Medical Branch losartan 25 2017-03 Yes 25mg Take 25 mg Univers mg tablet 0-25 by mouth ity of 10:11: daily. Medical Branch amiodarone 2017-03 Yes 200mg Take 200 Un hi 200 mg 0-25 mg by ity of tablet 10:11: mouth [place] 01 daily. Medical Branch travoprost 2017-03 Yes 1[drp] 1 Drop at Univers (TRAVATAN 0-25 bedtime. ity of Z) 0.004 % 10:11: [place] ophthalmic Medical solution Branch propylene 2017-03 Yes 1[drp] Place 1 Uni vers glycol 0-25 Drop in ity of (SYSTANE 10:11: each eye [place] BALANCE 01 as needed. Medica l OPHTHALMIC) Branch biotin 2017-03 Yes 1{dose} Take 1 Univer s 1,000 mcg 0-25 Dose by ity of Chew 10:11: mouth [place] 01 daily. Medical Branch furosemide 2017-03 Yes 20mg Take 20 mg U nivers 20 mg 0-25 by mouth ity of tablet 10:11: daily. Medical Branch losartan 25 2017-03 Yes 25mg Take 25 mg Univers mg tablet 0-25 by mouth ity of 10:11: daily. Medical Branch amiodarone 2017-03 Yes 200mg Take 200 Un hi 200 mg 0-25 mg by ity of tablet 10:11: mouth [place] 01 daily. Medical Branch travoprost 2017-03 Yes 1[drp] 1 Drop at Univers (TRAVATAN 0-25 bedtime. ity of Z) 0.004 % 10:11: [place] ophthalmic Medical solution Branch propylene 2017-03 Yes 1[drp] Place 1 Uni vers glycol 0-25 Drop in ity of (SYSTANE 10:11: each eye [place] BALANCE 01 as needed. Medica l OPHTHALMIC) Branch biotin 2017-03 Yes 1{dose} Take 1 Univer s 1,000 mcg 0-25 Dose by ity of Chew 10:11: mouth [place] 01 daily. Medical Branch furosemide 2017-03 Yes 20mg Take 20 mg U nivers 20 mg 0-25 by mouth ity of tablet 10:11: daily. [facility] Branch losartan 25 2017-03 Yes 25mg Take 25 mg Univers mg tablet 0-25 by mouth ity of 10:11: daily. Medical Branch amiodarone 2017-03 Yes 200mg Take 200 Un hi 200 mg 0-25 mg by ity of tablet 10:11: mouth [place] 01 daily. Medical Branch travoprost 2017-03 Yes 1[drp] 1 Drop at Univers (TRAVATAN 0-25 bedtime. ity of Z) 0.004 % 10:11: [place] ophthalmic Medical solution Branch propylene 2017-03 Yes 1[drp] Place 1 Uni vers glycol 0-25 Drop in ity of (SYSTANE 10:11: each eye [place] BALANCE 01 as needed. Medica l OPHTHALMIC) Branch biotin 2017-03 Yes 1{dose} Take 1 Univer s 1,000 mcg 0-25 Dose by ity of Chew 10:11: mouth [place] 01 daily. Medical Branch furosemide 2017-03 Yes 20mg Take 20 mg U nivers 20 mg 0-25 by mouth ity of tablet 10:11: daily. Medical Branch losartan 25 2017-03 Yes 25mg Take 25 mg Univers mg tablet 0-25 by mouth ity of 10:11: daily. Medical Branch amiodarone 2017-03 Yes 200mg Take 200 Un hi 200 mg 0-25 mg by ity of tablet 10:11: mouth [place] daily. Medical Branch travoprost 2017-03 Yes 1[drp] 1 Drop at Univers (TRAVATAN 0-25 bedtime. ity of Z) 0.004 % 10:11: ophthalmic Medical solution Branch propylene 2017-03 Yes 1[drp] Place 1 Uni vers glycol 0-25 Drop in ity of (SYSTANE 10:11: each eye [place] BALANCE 01 as needed. Medica l OPHTHALMIC) Branch biotin 2017-03 Yes 1{dose} Take 1 Univer s 1,000 mcg 0-25 Dose by ity of Chew 10:11: mouth [place] 01 daily. Medical Branch furosemide 2017-03 Yes 20mg Take 20 mg U nivers 20 mg 0-25 by mouth ity of tablet 10:11: daily. Medical Branch losartan 25 2017-03 Yes 25mg Take 25 mg Univers mg tablet 0-25 by mouth ity of 10:11: daily. Medical Branch amiodarone 2017-03 Yes 200mg Take 200 Un hi 200 mg 0-25 mg by ity of tablet 10:11: mouth [place] 01 daily. Medical Branch travoprost 2017-03 Yes 1[drp] 1 Drop at Univers (TRAVATAN 0-25 bedtime. ity of Z) 0.004 % 10:11: ophthalmic Medical solution Branch propylene 2017-03 Yes 1[drp] Place 1 Uni vers glycol 0-25 Drop in ity of (SYSTANE 10:11: each eye [place] BALANCE 01 as needed. Medica l OPHTHALMIC) Branch biotin 2017-03 Yes 1{dose} Take 1 Univer s 1,000 mcg 0-25 Dose by ity of Chew 10:11: mouth [place] 01 daily. Medical Branch furosemide 2017-03 Yes 20mg Take 20 mg U nivers 20 mg 0-25 by mouth ity of tablet 10:11: daily. Medical Branch losartan 25 2017-03 Yes 25mg Take 25 mg Univers mg tablet 0-25 by mouth ity of 10:11: daily. Medical Branch amiodarone 2017-03 Yes 200mg Take 200 Un hi 200 mg 0-25 mg by ity of tablet 10:11: mouth [place] daily. Medical Branch travoprost 2017-03 Yes 1[drp] 1 Drop at Univers (TRAVATAN 0-25 bedtime. ity of Z) 0.004 % 10:11: ophthalmic Medical solution Branch propylene 2017-03 Yes 1[drp] Place 1 Uni vers glycol 0-25 Drop in ity of (SYSTANE 10:11: each eye [place] BALANCE as needed. Medica l OPHTHALMIC) Branch biotin 2017-03 Yes 1{dose} Take 1 Univer s 1,000 mcg 0-25 Dose by ity of Chew 10:11: mouth [place] daily. Medical Branch furosemide 2017-03 Yes 20mg Take 20 mg U nivers 20 mg 0-25 by mouth ity of tablet 10:11: daily. Medical Branch losartan 25 2017-03 Yes 25mg Take 25 mg Univers mg tablet 0-25 by mouth ity of 10:11: daily. Medical Branch amiodarone 2017-03 Yes 200mg Take 200 Un hi 200 mg 0-25 mg by ity of tablet 10:11: mouth [place] 01 daily. Medical Branch travoprost 2017-03 Yes 1[drp] 1 Drop at Univers (TRAVATAN 0-25 bedtime. ity of Z) 0.004 % 10:11: ophthalmic Medical solution Branch propylene 2017-03 Yes 1[drp] Place 1 Uni vers glycol 0-25 Drop in ity of (SYSTANE 10:11: each eye [place] BALANCE as needed. Medica l OPHTHALMIC) Branch biotin 2017-03 Yes 1{dose} Take 1 Univer s 1,000 mcg 0-25 Dose by ity of Chew 10:11: mouth [place] daily. Medical Branch Vital Signs Vital Name Observation Time Observation Value Comments Source Systolic blood 2020-08-18 15:19:00 142 mm[Hg] Univer sity of [facility] Diastolic blood 2020-08-18 15:19:00 74 mm[Hg] Unive rsity [facility] Heart rate 2020-08-18 15:11:00 61 /min [facility] Body weight 2020-08-18 15:11:00 74.844 kg [facility] BMI 2020-08-18 15:11:00 28.32 kg/m2 [facility] Systolic blood 2018-11-06 20:19:00 130 mm[Hg] Univer sity [facility] Diastolic blood 2018-11-06 20:19:00 72 [facility]Hg[facility] 2018-11-06 20:19:00 70 /min [facility] Respiratory rate 2018-11-06 20:19:00 19 /[facility] 2018-11-06 20:19:00 162.6 cm [facility] Body weight 2018-11-06 20:19:00 78.926 kg [facility] BMI 2018-11-06 20:19:00 29.87 kg/m2 [facility] Oxygen saturation in 2018-11-06 20:19:00 96 /min [facility] blood by [facility] Pulse oximetry Branch Procedures Procedure Date / Time Performing Clinician Source Performed EXTERNAL PROVIDER RECORDS 2021-07-02 05:01:00 Doctor Unassigned, [facility] [place] [facility] EXTERNAL PROVIDER RECORDS 2020-08-25 05:01:00 Doctor Unassigned, [facility] [place] [facility] MEDICATION CORRESPONDENCE 2020-04-25 06:01:00 Doctor Unassigned, [facility] [place] [facility] MEDICATION CORRESPONDENCE 2019-04-06 06:01:00 Doctor Britney, [facility] Name [facility] Plan of Care Planned Activity Planned Date Details Comments Source Future Scheduled 2022-06-16 COVID-19 VACCINE (#1) [facility] Test 17:18:41 [code = COVID-19 VACCINE (#1)] Future Scheduled 2022-06-16 SHINGLES VACCINES (1 [facility] Test 17:18:41 of 2) [code = SHINGLES VACCINES (1 of 2)] Future Scheduled 2022-06-16 65+ [facility]OCOCCAL [facility] Test 17:18:41 VACCINE (1 - PCV) [code = 65+ PNEUMOCOCCAL VACCINE (1 - PCV)] Future Scheduled 2022-06-16 INFLUENZA VACCINE [facility] Test 17:18:41 [code = INFLUENZA VACCINE] Encounters Start End Encounter Admission Attending Care Care Encounter Source Date/Time Date/Time Type Type Clinicians Facility Department ID 2022-09-21 2022-09-21 [facility]patient [facility] [id number] [facility] 09:30:00 09:30:00 03 praveen Velasquez 2022-03-23 2022-03-23 Outpatient IE IE [id number] [facility] 09:30:00 09:30:00 02 praveen Velasquez 2021-09-15 2021-09-15 [facility] [id number] [facility] 09:15:00 09:15:00 01 praveen Velasquez 2021-07-02 2021-07-02 Orders Doctor FENG 1.2.840.114 [id number] Univers 00:00:00 00:00:00 Only UnassignedNOAH [id number] ity [place] [facility] [id number] Mike as [phone] [address] 2021-06-09 2021-06-09 Outpatient RAJINDER SINGH [facility] [id number] Univers 11:40:00 11:40:00 RAJINDER SOTELO [facility] [place] [facility] 2021-06-05 2021-06-05 [facility]patient [facility] [id number] [facility] 14:00:00 14:00:00 00 praveen Velasquez 2021-05-26 2021-05-26 RefCHANTAL Fu 1.2.840.114 [id number] Univers 00:00:00 00:00:00 Rajinder HUI [id number] [place]y [id number] [phone] [address] 2021-05-22 2021-05-22 [facility] 1.2.840.114 [id number] Univers 00:00:00 00:00:00 Rajinder HUI [id number] [place]y [id number] [phone] [address] 2021-05-18 2021-05-18 [facility] 1.2.840.114 [id number] Univers 00:00:00 00:00:00 Rajinder HUI [id number] [facility] [id number] [phone] [address] 2021-04-16 2021-04-16 [facility] 1.2.840.114 [id number] Univers 00:00:00 00:00:00 Rajinder HUI [id number] [facility] [id number] [phone] [address] 2021-01-22 2021-01-22 [facility] 1.2.840.114 [id number] Univers 00:00:00 00:00:00 Rajinder HUI [id number] [facility] [id number] [phone] [address] 2021-01-19 2021-01-19 [facility] 1.2.840.114 [id number] Univers 00:00:00 00:00:00 Rajinder HUI [id number] [place]y of [id number] [phone] [place] [address] [facility] 2020-10-08 2020-10-08 Telephone Deepak, [facility] 1.2.840.114 [id number] Univers 00:00:00 00:00:00 Rajinder Hui [id number] [id number] [phone] [address] 2020-10-06 2020-10-06 [facility] 1.2.840.114 [id number] Univers 00:00:00 00:00:00 Rajinder Hui [id number] [id number] [phone] [address] 2020-09-19 2020-09-19 [facility] 1.2.840.114 [id number] Univers 00:00:00 00:00:00 Rajinder Hui [id number] ity [id number] [phone] [address] 2020-09-08 2020-09-08 [facility] 1.2.840.114 [id number] Univers 00:00:00 00:00:00 Rajinder Hui [id number] [id number] [phone] [address] 2020-08-25 2020-08-25 Orders Doctor PING 1.2.840.114 [id number] Univers 00:00:00 00:00:00 Only Unassigned, NOAH [id number] ity of [place] [facility] [id number] [place] as [phone] [address] 2020-08-19 2020-08-19 [facility] 1.2.840.114 [id number] Univers 00:00:00 00:00:00 Rajinder Hui [id number] it[place] of [id number] [phone] [address] 2020-08-18 2020-08-18 Office Deepak, [facility] 1.2.840.114 [id number] Univers 09:33:47 10:42:10 Visit Rajinder Hui [id number] it[id number] [phone] [address] 2020-08-18 2020-08-18 Outpatient R RAJINDER SOTELO [facility] [id number] Univers 09:40:00 09:40:00 RAJINDER SOTELO ity [facility] [place] [facility] 2020-08-04 2020-08-04 Telephone Deepak [facility] 1.2.840.114 [id number] Univers 00:00:00 00:00:00 Rajinder Hui [id number] it[id number] [phone] [address] 2020-07-09 2020-07-09 Refill Deepak, [facility] 1.2.840.114 [id number] Univers 00:00:00 00:00:00 Rajinder Hui [id number] [id number] [phone] [address] 2020-06-11 2020-06-11 [facility] 1.2.840.114 [id number] Univers 00:00:00 00:00:00 Rajinder Hui [id number] it[id number] [phone] [address] 2020-04-25 2020-04-25 Orders Doctor FENG 1.2.840.114 [id number] Univers 00:00:00 00:00:00 Only Unassigned, NOAH [id number] ity of [place] [facility] [id number] Mike as [phone] [facility] 00[address] [place] 2020-04-24 2020-04-24 Refnini Sotelo [facility] 1.2.840.114 [id number] Univers 00:00:00 00:00:00 Rajinder Hui [id number] it[id number] [phone] [address] 2020-04-10 2020-04-10 Refnini Sotelo [facility] 1.2.840.114 [id number] Univers 00:00:00 00:00:00 Rajinder Hui [id number] it[place] of [id number] [phone] [address] 2020-04-10 2020-04-10 Chong Sotelo [facility] 1.2.840.114 [id number] Univers 00:00:00 00:00:00 Rajinder Hui [id number] it[id number] [phone] [address] 2019-12-06 2019-12-06 PING Le 1.2.840.114 [id number] Univers 00:00:00 00:00:00 Rajinder ZAMORA [id number] ity of [facility] [id number] [place] as [phone] [facility] 012 [place] 2019-10-31 2019-10-31 Refnini Sotelo [facility] 1.2.840.114 [id number] Univers 00:00:00 00:00:00 Rajinder Hui [id number] [id number] [phone] [address] 2019-08-10 2019-08-10 Tree Sotelo [facility] [id number] Univers 00:00:00 00:00:00 Rajinder Hui [id number] [id number] [phone] [place] dical nal 092 [facility] 2019-06-12 2019-06-12 Telemedici Deepak [facility] [id number] [id number] Univers 10:03:40 10:23:40 ne Visit Rajinder Hui [id number] ity [id number] [phone] [place] dic[place] nal 2 [facility] 2019-06-12 2019-06-12 Outpatient R RAJINDER SOTELO [facility] [id number] Univers 09:40:00 09:40:00 RAJINDER SOTELO ity of [facility] 2019-04-06 2019-04-06 Orders Doctor PING [id number] Univers 00:00:00 00:00:00 Only Unassigned, NOAH [id number] ity of [place] [facility] [id number] Mike as [phone] [address] 2019-04-06 2019-04-06 [facility] [id number] Univers 00:00:00 00:00:00 Rajinder Hui [id number] [id number] [phone] [place] dic[place]al 2 [facility] 2018-11-06 2018-11-06 Office Deepak [facility] [id number] Univers 15:14:30 16:08:01 Visit Rajinder Hui [id number] it[id number] [phone] [address] Results This patient has no known results.
[2022-08-27 09:13] LABS: Absolute Lymphocytes (CBC) 0.2 K/uL (0.7-4.9); Hematocrit 39.2 % (36.0-45.0); Lymphocytes % 1.4 % (15.3-44.8); MCV 87.5 fL (80-100); MPV 8.7 fL (7.6-11.3); RBC Red Blood Cell Count 4.49 M/uL (3.86-4.86)
[2022-08-27 09:32] LABS: Troponin High Sensitivity 39.3 pg/mL (<58.9)
--- NOTE | 2022-08-27 09:33 | RAD REPORT ---
EXAM DESCRIPTION: CT - CTHCSPWOC - 08/27/2022 9:12 am CLINICAL HISTORY: Trauma, head and neck injury. pain sp fall COMPARISON: No comparisons TECHNIQUE: Axial 5 mm thick images of the head were obtained. Axial 2 mm thick images of the cervical spine were obtained with sagittal and coronal reconstruction images generated and reviewed. All CT scans are performed using dose optimization technique as appropriate and may include automated exposure control or mA/KV adjustment according to patient size. FINDINGS: CT HEAD WITHOUT CONTRAST: No acute hemorrhage, hydrocephalus or extra-axial collection is identified.No areas of brain edema or midline shift. Mild chronic small vessel ischemic changes . The paranasal sinuses and mastoids are clear.The calvarium is intact. CT CERVICAL SPINE WITHOUT CONTRAST: No fracture or subluxation.No prevertebral soft tissues swelling is identified. Multilevel degenerati ve changes are present in the spine. Multilevel cervical spondylosis with varying degrees of neural f oraminal narrowing. This is moderate at C5-6 and C6-7. IMPRESSION: No acute intracranial or cervical spine findings.
[2022-08-27 09:34] LABS: Potassium 3.7 mEq/L (3.5-5.1)
--- NOTE | 2022-08-27 09:34 | RAD REPORT ---
EXAM DESCRIPTION: RAD - Pelvis - 08/27/2022 9:19 am CLINICAL HISTORY: pain sp fall COMPARISON: Lumbar Spine 3 Views dated 08/27/2022 FINDINGS/IMPRESSION: No acute fracture. No malalignment. Bilateral acetabular and lower spine degene rative changes. Degenerative changes are present at the pubic symphysis.
--- NOTE | 2022-08-27 09:35 | RAD REPORT ---
EXAM DESCRIPTION: RAD - Lumbar Spine 3 Views - 08/27/2022 9:19 am CLINICAL HISTORY: pain sp fall COMPARISON: Lumbar Spine 3 Views dated 05/21/2020 FINDINGS/IMPRESSION: No acute fracture. Grade 1 anterolisthesis of L4 on L5. Scattered degenerative changes with endplate spurring and facet arthropathy at L4-5 and L5-S1
[2022-08-27 10:29] LABS: Blood Morphology Comment NOT SEEN (NOT SEEN); Platelet Estimate ADEQ; White Blood Cell Scan OK (OK)
[2022-08-27 10:35] LABS: Specific Gravity 1.013 (1.005-1.030); Urine Bacteria None Seen /HPF (<20); Urine Bilirubin NEGATIVE (Negative); Urine Blood Negative (Negative); Urine Clarity Turbid (Clear); Urine Color Yellow (Yellow); Urine Glucose NEGATIVE (Negative); Urine Mucus Slight /HPF (None Seen); Urine Protein TRACE (Negative); Urine RBC <5 /HPF (None Seen); Urine Urobilinogen Normal (Normal)
--- NOTE | 2022-08-27 11:07 | ER ---
Nurse's Notes [facility] Name: Shanice Morales Age: 86 yrs Sex: Female : 1935 Arrival Date: 08/27/2022 Time: 08:23 Bed 5 Private MD: Diagnosis: Fall on same level, unspecified;back contusion Presentation: 08/27 08:24 Chief complaint: EMS states: pt fell from a standing at position at approximately 2am kc6 this morning and has been on the ground since. pt was able to crawl to her bed and call her daughter. pt reports neck and tailbone pain upon arrival. Care prior to arrival: None. Mechanism of Injury: Fall from standing position. an unknown distance. Trauma event details: Injury occurred in the [facility], Injury occurred: at home. Injury occurred: August 27, 2022 Injury occurred at: 02:00. 08:24 Acuity: KYA 3 kc6 08:24 Method Of Arrival: EMS: [facility] kc6 08:28 Coronavirus screen: Vaccine status: Patient reports receiving the 2nd dose of the covid kc6 vaccine. At this time, the client does not indicate any symptoms associated with coronavirus-19. Ebola Screen: No symptoms or risks identified at this time. Initial Sepsis Screen: Does the patient meet any 2 criteria? No. Patient's initial sepsis screen is negative. Does the patient have a suspected source of infection? No. Patient's initial sepsis screen is negative. Risk Assessment: Do you want to hurt yourself or someone else? Patient reports no desire to harm self or others. Onset of symptoms was August 27, 2022. Trauma Activation: Not Applicable Physician: ED Physician; Name: ; Notified At: ; Arrived At: Physician: General Surgeon; Name: ; Notified At: ; Arrived At: Physician: Radiology; Name: ; Notified At: ; Arrived At: Physician: Respiratory; Name: ; Notified At: ; Arrived At: Physician: Lab; Name: ; Notified At: ; Arrived At: Historical: - Allergies: 08:28 Compazine; kc6 08:28 Demerol; kc6 08:28 meperidine HCl; kc6 - PMHx: 08:28 Atrial Fib; Hyperlipidemia; Hypertension; Hypothyroidism; nerve pain; TIA; Vertigo; kc6 - PSHx: 08:28 None; kc6 - Immunization history: Last tetanus immunization: unknown. - Social history:: Smoking status: Patient denies any tobacco usage or history of. Screenin:24 Abuse screen: Denies threats or abuse. Denies injuries from another. Tuberculosis kc6 screening: No symptoms or risk factors identified. 08:29 [facility] ED Fall Risk Assessment (Adult) History of falling in the last 3 months, kc6 including since admission Yes- single mechanical fall (1 pt) Confusion or Disorientation No (0 pts) Intoxicated or Sedated No (0 pts) Impaired Gait No (0 pts) Mobility Assist Device Used No (0 pt) Altered Elimination No (0 pt) Score/Fall Risk Level 0 - 2 = Low Risk Oriented to surroundings, Maintained a safe environment, Educated pt \T\ family on fall prevention, incl call for assistance when getting out of bed, Assessed \T\ reinforced patient's understanding of fall precautions, Hourly rounding (assess needs \T\ fall precautionary measures) done. Nutritional screening: No deficits noted. Primary Survey: 08:24 NO uncontrolled hemorrhage observed. A: The client is awake and alert. The airway is kc6 patent. Breathing/Chest: Spontaneous respiratory effort, equal unlabored respirations, breath sounds clear bilaterally, regular pattern, symmetrical chest rise and fall. Circulation: No external hemorrhage present. Regular and strong central pulse, skin warm/dry/normal color. Disability Pupils are equal, round, reactive to light and accommodation. Client is alert. Exposure/Environment: All clothing and personal items were removed. Forensic evidence collection is not deemed to be indicated at this time. Items placed in patient belonging bag. There is no evidence of uncontrolled external bleeding. No obvious injuries are noted at this time. A warming method has been applied: A warm blanket has been provided to the patient. 08:29 Reassessment Breathing:. kc6 08:59 Reassessment Alertness and Airway: Awake and alert. The airway is patent. Circulation: kc6 No external hemorrhage noted. Regular and strong central pulse, skin warm/dry/normal color. Disability: Pupils Pupils are equal, round, reactive to light and accomodation. Alert. Secondary Survey: 08:24 HEENT: No deficits noted. Gastrointestinal: No deficits noted. : No signs and/or kc6 symptoms were reported regarding the genitourinary system. Musculoskeletal: No signs and/or symptoms reported regarding the musculoskeletal system. Assessment: 08:24 General: Appears in no apparent distress. comfortable, Behavior is calm, cooperative, kc6 appropriate for age. Pain: Complains of pain in neck, tailbone. Neuro: Triplett Agitation-Sedation Scale (RASS): 0 - Alert and Calm Level of Consciousness is awake, alert, obeys commands, Oriented to person, place, time, situation, Appropriate for age. EENT: No signs and/or symptoms were reported regarding the EENT system. Cardiovascular: Capillary refill < 3 seconds. Respiratory: Airway is patent Trachea midline Respiratory effort is even, unlabored, Respiratory pattern is regular, symmetrical. GI: No signs and/or symptoms were reported involving the gastrointestinal system. : No signs and/or symptoms were reported regarding the genitourinary system. Derm: No signs and/or symptoms reported regarding the dermatologic system. Skin is intact, Skin is pink, warm \T\ dry. Musculoskeletal: No signs and/or symptoms reported regarding the musculoskeletal system. Circulation, motion, and sensation intact. Capillary refill < 3 seconds, Range of motion: intact in all extremities. 09:24 Reassessment: Patient appears in no apparent distress at this time. No changes from kc6 previously documented assessment. Patient and/or family updated on plan of care and expected duration. Pain level reassessed. Patient is alert, oriented x 3, equal unlabored respirations, skin warm/dry/pink. 10:24 Reassessment: Patient appears in no apparent distress at this time. No changes from kc6 previously documented assessment. Patient and/or family updated on plan of care and expected duration. Pain level reassessed. Patient is alert, oriented x 3, equal unlabored respirations, skin warm/dry/pink. Vital Signs: 08:24 BP 119 / 57; Pulse 84; Resp 17 S; Pulse Ox 96% on R/A; Weight 72.57 kg (R); Height 5 kc6 ft. 5 in. (R); 09:48 BP 107 / 52; Pulse 76; Resp 14 S; Pulse Ox 95% on R/A; kc6 08:24 Body Mass Index 26.63 (72.57 kg, 165.1 cm) kc6 Ulen Coma Score: 08:24 Eye Response: spontaneous(4). Motor Response: obeys commands(6). Verbal Response: kc6 oriented(5). Total: 15. Trauma Score (Adult): 08:24 Eye Response: spontaneous(1); Verbal Response: oriented(1); Motor Response: obeys kc6 commands(2); Systolic BP: > 89 mm Hg(4); Respiratory Rate: 10 to 29 per min(4); Korin Score: 15; Trauma Score: 12 ED Course: 08:24 Patient arrived in ED. kc6 08:24 Patient has correct armband on for positive identification. Bed in low position. Call kc6 light in reach. Side rails up X2. Adult w/ patient. 08:24 Patient maintains SpO2 saturation greater than 95% on room air. kc6 08:25 Ilia Webb MD is Attending Physician. jr11 08:26 Triage completed. kc6 08:28 Arm band placed on. kc6 08:29 Thermoregulation: warm blanket given to patient. kc6 08:30 Ursula Leija RN is Primary Nurse. kc6 08:59 Missed attempt(s): 20 gauge in right antecubital area. Missed attempt(s): 20 gauge in kc6 right forearm. 09:14 CT Head C Spine In Process Unspecified. EDMS 09:21 XRAY Pelvis In Process Unspecified. EDMS 09:21 Lumbar Spine (3 Views) XRAY In Process Unspecified. EDMS 09:48 Inserted saline lock: 20 gauge in left antecubital area, using aseptic technique. Blood kc6 collected. 11:34 No provider procedures requiring assistance completed. IV discontinued, intact, kc6 bleeding controlled, No redness/swelling at site. Pressure dressing applied. Administered Medications: 08:52 Not Given (Patient Refused): Acetaminophen PO 1000 mg PO once kc6 Medication: 11:34 VIS not applicable for this client. kc6 Outcome: 11:06 Discharge ordered by . jr11 11:34 Discharged to home via wheelchair, with family. kc6 11:34 Condition: improved 11:34 Discharge instructions given to patient, Instructed on discharge instructions, follow up and referral plans. Demonstrated understanding of instructions, follow-up care. 11:34 Patient left the ED. kc6 Signatures: Dispatcher [employer] Ilia Sandy MD MD jr11 Ursula Leija, RN RN kc6
--- NOTE | 2022-08-27 11:07 | EDPHYS ---
Physician Documentation [facility] Name: Shanice Morales Age: 86 yrs Sex: Female : 1935 Arrival Date: 08/27/2022 Time: 08:23 Bed 5 Private MD: ED Physician Ilia Webb HPI: 08/27 08:53 This 86 yrs old Female presents to ER via EMS with complaints of Fall Injury. jr11 08:53 Patient is an 86-year-old with history of atrial fibrillation here after a fall last jr11 night. Patient lives alone, stated that she does not remember falling however the daughter says that she likely got up without her cane since her cane was hanging. Patient supposed to use her cane for ambulation. Patient otherwise states that she had chills overnight but denies any fever no nausea no vomiting no diarrhea. Feels like her mouth is very dry. Review of system otherwise negative. Historical: - Allergies: 08:28 Compazine; kc6 08:28 Demerol; kc6 08:28 meperidine HCl; kc6 - PMHx: 08:28 Atrial Fib; Hyperlipidemia; Hypertension; Hypothyroidism; nerve pain; TIA; Vertigo; kc6 - PSHx: 08:28 None; kc6 - Immunization history: Last tetanus immunization: unknown. - Social history:: Smoking status: Patient denies any tobacco usage or history of. ROS: 08:53 Constitutional: Negative for fever, chills Eyes: Negative for injury, pain, redness, jr11 and discharge, ENT: Negative for injury, pain, and discharge, Neck: Negative for injury, pain, and swelling, Cardiovascular: Negative for chest pain, palpitations, and edema, Respiratory: Negative for shortness of breath, cough Back: Negative for injury and pain, Skin: Negative for injury, rash, and discoloration, Neuro: Negative for headache, weakness, numbness, tingling, and seizure. Exam: 08:53 Constitutional: This is a well developed, well nourished patient who is awake, alert, jr11 and in no acute distress. Head/Face: Normocephalic, atraumatic. Eyes: Extra-ocular motions intact. Lids and lashes normal. Conjunctiva and sclera are non-icteric and not injected. Cornea within normal limits. Periorbital areas with no swelling, redness, or edema. ENT: Nares patent. No nasal discharge, no septal abnormalities noted. Oropharynx with no redness, swelling, or masses, exudates, or evidence of obstruction, uvula midline. Mucous membranes moist. Chest/axilla: Normal chest wall appearance and motion. Nontender with no deformity. No lesions are appreciated. Cardiovascular: Regular rate and rhythm with a normal S1 and S2. No gallops, murmurs, or rubs. Normal PMI, no JVD. No pulse deficits. Abdomen/GI: Soft, non-tender, with normal bowel sounds. No distension or tympany. No guarding or rebound. No evidence of tenderness throughout. Skin: Warm, dry with normal turgor. Normal color with no rashes, no lesions, and no evidence of cellulitis. MS/ Extremity: Pulses equal, no cyanosis. Neurovascular intact. Full, normal range of motion tenderness to palpation over lumbar spine, full range of motion otherwise without any deformities. Vital Signs: 08:24 BP 119 / 57; Pulse 84; Resp 17 S; Pulse Ox 96% on R/A; Weight 72.57 kg (R); Height 5 kc6 ft. 5 in. (R); 09:48 BP 107 / 52; Pulse 76; Resp 14 S; Pulse Ox 95% on R/A; kc6 08:24 Body Mass Index 26.63 (72.57 kg, 165.1 cm) kc6 Korin Coma Score: 08:24 Eye Response: spontaneous(4). Motor Response: obeys commands(6). Verbal Response: kc6 oriented(5). Total: 15. Trauma Score (Adult): 08:24 Eye Response: spontaneous(1); Verbal Response: oriented(1); Motor Response: obeys kc6 commands(2); Systolic BP: > 89 mm Hg(4); Respiratory Rate: 10 to 29 per min(4); Korin Score: 15; Trauma Score: 12 MDM: 08:35 Patient medically screened. jr11 08:53 Differential diagnosis: abrasion, closed head injury, contusion, multiple trauma, jr11 sprain, strain, fall mechanical vs syncope. Data reviewed: vital signs, nurses notes. ED course: EKG interpreted by me shows normal sinus rhythm with a first-degree AV block, prolonged NM at 216 prolonged QRS at 148 with a left bundle branch morphology no STEMI.. 11:04 ED course: Dr Casiano reviewed record, agrees with OP follow up, family as well. [facility] 08/27 08:37 Order name: Basic Metabolic Panel; Complete Time: 09:36 [facility] 08/27 08:37 Order name: CBC with Diff; Complete Time: 10:35 [facility] 08/27 08:37 Order name: Type And Screen; Complete Time: 11:08 08/27 08:37 Order name: Urinalysis w/ reflexes; Complete Time: 10:53 08/27 08:37 Order name: BNP; Complete Time: 09:36 08/27 08:37 Order name: Troponin High Sensitivity; Complete Time: 09:36 [facility] 08/27 10:12 Order name: ABO/RH no charge; Complete Time: 10:35 [facility] 08/27 10:29 Order name: CBC Smear Scan; Complete Time: 10:35 [facility] 08/27 08:37 Order name: CT Head C Spine; Complete Time: 09:36 08/27 08:37 Order name: XRAY Pelvis; Complete Time: 09:36 08/27 08:57 Order name: Lumbar Spine (3 Views) XRAY; Complete Time: 09:36 08/27 08:38 Order name: EKG; Complete Time: 08:38 [facility] 08/27 08:37 Order name: Labs collected and sent; Complete Time: 09:04 [facility] 08/27 09:19 Order name: Labs - recollect needed: recollect T\T\S hemolyzed per Radha ; Complete eb Time: 09:47 Administered Medications: 08:52 Not Given (Patient Refused): Acetaminophen PO 1000 mg PO once kc6 Disposition Summary: 08/27/22 11:06 Discharge Ordered Location: Home jr11 Condition: Stable jr11 Diagnosis - Fall on same level, unspecified jr11 - back contusion jr11 Discharge Instructions: - Discharge Summary Sheet jr11 - Contusion jr11 - Fall Prevention in the Home, Adult jr11 Forms: - Medication Reconciliation Form jr11 - Thank You Letter jr11 - Antibiotic Education jr11 - Prescription Opioid Use jr11 Signatures: Dispatcher [employer] [facility] Opal Long Jose, MD MD jr11 Leija, Ursula, RN RN kc6
[2022-08-27 11:41] VITALS: BP 107/52; O2SAT 95
--- NOTE | 2022-08-30 17:57 | EKG ---
Test Date: 2022-08-27 Test Time: 08:47:05 Road Mechanic: [facility] MEASUREMENT RESULTS: Intervals: Rate: 83 MS: 216 QRSD: 148 QT: 416 QTc: 488 [place]: P: 77 MS: 216 QRS: -51 T: 92 INTERPRETIVE STATEMENTS: Sinus rhythm with 1st degree AV block Left axis deviation Left bundle branch block Abnormal ECG Compared to ECG 02/14/2019 08:41:33 First degree AV block now present Atrial premature complex(es) no longer present Electronically Signed On 08-30-22 17:52:19 CDT by Pete Hernandez
== END 2022-08-27 11:34 | disposition home or self-care (01) ==
LOC: ER 08:23
DX: S30.0XXA Contusion of lower back and pelvis, initial encounter (principal); W18.30XA Fall on same level, unspecified, initial encounter; I10 Essential (primary) hypertension; I48.91 Unspecified atrial fibrillation; Z88.1 Allergy status to other antibiotic agents; Z88.5 Allergy status to narcotic agent
CPT/HCPCS: 36415; 70450; 72100; 72125; 72170; 80048; 81001; 83880; 84484; 85025; 86850; 86900; 86901; 93005; 99284

== ENCOUNTER 2022-09-21 12:24 | Emergency (ER) | payer OTHER, MEDICARE ==
--- OUTSIDE RECORDS SUMMARY | 2022-09-21 12:32 | XMS REPORT | Continuity of Care Document ---
:1935 Author Organization [facility] t Address [address] [place] [address] Care Team Providers Name Role Phone Mike Calvo MD Primary Care Physician Doctor Unassigned, [place] Attending Clinician Unavailable RAJINDER SOTELO Attending Clinician Unavailable RAJINDER SOTELO Attending Clinician Unavailable Rajinder Sotelo MD Attending Clinician Payers Payer Name Policy Type Policy Number Effective Date Expiration Date S ource Problems Condition Condition Condition Status Onset Resolution Last Treating Co mments Source Name Details Category Date Date Treatment Clinician Date Atrial Atrial Disease Active Methodi fibrillati fibrillati 03-29 st on with on with 00:00: Hospita RVR RVR 00 l Hyperparat Hyperparat Disease Active 2010-03 Overview : [facility] hyroidism hyroidism 2-10 Formattin i ty of 00:00: g of this [place] 00 note Medical might be Branch different from the original. 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 Allergies, Adverse Reactions, Alerts Allergy Allergy [...] INGREDI 03-14 ity of 00:00: [place] 00 [facility] Branch Social History Social Habit Start Date Stop Date Quantity Comments Source Gender identity [facility] Sexual orientation [facility] History of Social 2018-11-01 2018-11-[address] function 00:00:00 00:00:00 Hospital Alcohol intake 2018-03-29 2018-03-29 Current [facility] 00:[facility]:00 00:00:00 non-drinker of Hospital alcohol (finding) Tobacco use and 2011-01-12 2011-01-12 Never used [facility] y of exposure 00:00:00 00:00:00 [facility] Sex Assigned At [birth year] [facility] 00:[facility]:00 Hospital Smoking Status Start Date Stop Date Source Never smoker [facility] Medications Ordered Filled Start Stop Current Ordering Indication Dosage Frequency Signature Comments Components Source Medication Medication Date Date Medication? Clinician (SIG) Name Name pregabalin Yes [id number] 50mg Take 1 U nivers (LYRICA) 50 3-22 capsule by [place] mg capsule [place] ([place] Medical times Branch daily. pregabalin Yes [id number] 50mg Take 1 U nivers (LYRICA) 50 3-22 capsule by it y [place] mg capsule 00:00: [place] (three) Medical times Branch daily. pregabalin 0 Yes [id number] 50mg Take 1 U nivers (LYRICA) 50 3-16 capsule by it y of mg capsule 00:00: mouth 3 [place] (three) Medical times Branch daily. pregabalin Yes [id number] 50mg Take 1 U nivers (LYRICA) 50 [...] Medical TIMES Branch DAILY. pregabalin 2020-03 Yes [id number] 50mg Take 1 U nivers (LYRICA) 50 1-12 capsule by it y of mg capsule 00:00: mouth 3 [place] (three) Medical times Branch daily. pregabalin 2020-03 Yes [id number] 50mg Take 1 U nivers (LYRICA) 50 1-12 capsule by it y of mg capsule 00:00: [place] (three) Medical times Branch daily. pregabalin 2020-03- No [id number] 50mg Take 1 Univers (LYRICA) 50 03-25-16 capsule by i ty of mg capsule 00:00: 00:00 mouth 3 [place] as 00 :00 (three) Medical times Branch daily. pregabalin 2020-03- No [id number] 50mg Take 1 Univers (LYRICA) 50 -02 13-16 capsule by i ty of mg capsule 00:00: 00:00 mouth 3 [place] as 00 :00 (three) Medical times Branch daily. pregabalin 2020-03- No [id number] 50mg Take 1 [facility] (LYRICA) 50 1-12 03-16 capsule by i ty of mg capsule 00:00: 00:00 mouth 3 [place] as 00 :00 (three) Medical times Branch daily. OXCARBAZEPI 2020-03 Yes 150mg TAKE 1 Uni vers [place] 150 mg 1-08 TABLET BY ity o f tablet 00:00: MOUTH 2 [place] (TWO) Medical TIMES Branch DAILY. OXCARBAZEPI 2020-03 Yes 150mg TAKE 1 Uni vers NE 150 mg 1-08 TABLET BY ity o f tablet 00:00: MOUTH 2 [place] 00 (TWO) Medical TIMES Branch DAILY. OXCARBAZEPI [...] (two) Medical tablet times Branch daily. OXcarbazepi 2020- No 150mg Take 1 Un hi ne 7-29 11-08 tablet by ity of (TRILEPTAL) 00:00: 00:00 mouth 2 [place] 150 mg 00 :00 (two) Medical tablet times Branch daily. PREGABALIN Yes [id number] TAKE 1 U nivers 50 mg 7-12 CAPSULE BY ity of capsule 00:00: MOUTH 3 [place] 00 TIMES Medical DAILY Branch PREGABALIN 2020-0 Yes [id number] TAKE 1 U nivers 50 mg 7-12 CAPSULE BY ity of capsule 00:00: MOUTH 3 [place] 00 TIMES Medical DAILY Branch PREGABALIN 2020-0 Yes [id number] TAKE 1 U nivers 50 mg 7-12 CAPSULE BY ity of capsule 00:00: MOUTH 3 [place] 00 TIMES Medical DAILY Branch PREGABALIN 2020-0 2020- No [id number] TAKE 1 Univers 50 mg 7-12 11-12 CAPSULE BY ity of capsule 00:00: 00:00 MOUTH 3 [place] 00 :00 TIMES Medical DAILY Branch PREGABALIN 2020-0 2020- No [id number] TAKE 1 Univers 50 mg 7-12 11-12 CAPSULE BY ity of capsule 00:00: 00:00 MOUTH 3 [place] 00 :00 TIMES Medical DAILY Branch OXcarbazepi [...] every 12 Medical (twelve) Branch hours. levothyroxi Yes 88ug Take 88 Uni vers ne [...] every 12 Medical (twelve) Branch hours. levothyroxi Yes 88ug Take 88 Uni vers ne 6-07 mcg by ity of (SYNTHROID) 10:11: mouth [place] 88 mcg 21 daily. Medical tablet Branch vitamin 0 Yes 1000ug Take 1,000 Un hi B-12 6-07 mcg by ity of (VITAMIN 10:11: mouth [place] B-12) 1,000 21 daily. Medica l mcg tablet Branch alendronate 2021-0 Yes 70mg Take 70 mg Univers 70 [...] by mouth ity of tablet 10:11: weekly. [place] 21 Medical Branch rivaroxaban Yes Take by [...] (two) Medical tablet times Branch daily. OXcarbazepi 202-0 Yes 150mg Take 1 Uni vers ne [...] tablet times Branch daily. pregabalin 2021-0 Yes [id number] 50mg Take 1 U nivers (LYRICA) 50 2-12 capsule by it y of mg capsule 00:00: mouth 3 [place] (three) Medical times Branch daily. pregabalin 2021-0 Yes [id number] 50mg Take 1 U nivers (LYRICA) 50 2-12 capsule by it y of mg capsule 00:00: mouth 3 [place] (three) Medical times Branch daily. pregabalin 2020-0 Yes [id number] 50mg Take 1 U nivers (LYRICA) 50 2-12 capsule by it y of mg capsule 00:00: mouth 3 [place] (three) Medical times Branch daily. pregabalin 2020-0 Yes [id number] 50mg Take 1 U nivers (LYRICA) 50 2-12 capsule by it y of mg capsule 00:00: mouth 3 [place] (three) Medical times Branch daily. pregabalin 2020-0 Yes [id number] 50mg Take 1 U nivers (LYRICA) 50 2-12 capsule by it y of mg capsule 00:00: mouth 3 [place] (three) Medical times Branch daily. pregabalin 2020-0 Yes [id number] 50mg Take 1 U nivers (LYRICA) 50 2-12 capsule by it y of mg capsule 00:00: mouth 3 [place] (three) Medical times Branch daily. pregabalin 2020-0 Yes [id number] 50mg Take 1 U nivers (LYRICA) 50 2-12 capsule by it y of mg capsule 00:00: mouth 3 [place] (three) Medical times Branch daily. pregabalin 2020-0 Yes [id number] 50mg Take 1 U nivers (LYRICA) 50 2-12 capsule by it y of mg capsule 00:00: mouth 3 [place] (three) Medical times Branch daily. pregabalin 2020-0 Yes [id number] 50mg Take 1 U nivers (LYRICA) 50 2-12 capsule by it y of mg capsule 00:00: mouth 3 [place] (three) Medical times Branch daily. pregabalin 2020-0 Yes [id number] 50mg Take 1 U nivers (LYRICA) 50 2-12 capsule by it y of mg capsule 00:00: mouth 3 [place] (three) Medical times Branch daily. pregabalin 2021-0 2021- No [id number] 50mg Take 1 Univers (LYRICA) 50 2-12 [...] tablet times Branch daily. pregabalin 2020-0 Yes [id number] 50mg Take 1 U nivers (LYRICA) 50 8-21 capsule by it y of mg capsule 00:00: mouth 3 [place] (three) Medical times Branch daily. pregabalin 2020-0 Yes [id number] 50mg Take 1 U nivers (LYRICA) 50 8-21 capsule by it y of mg capsule 00:00: mouth 3 [place] (three) Medical times Branch daily. pregabalin 2020-0 Yes [id number] 50mg Take 1 U nivers (LYRICA) 50 8-21 capsule by it y of mg capsule 00:00: mouth 3 [place] (three) Medical times Branch daily. pregabalin 2020-0 Yes [id number] 50mg Take 1 U nivers (LYRICA) 50 8-21 capsule by it y of mg capsule 00:00: mouth 3 [place] (three) Medical times Branch daily. pregabalin 2020-0 2020- No [id number] 50mg Take 1 Univers (LYRICA) 50 8-21 [...] tablet times Branch daily. pregabalin 2020-0 Yes [id number] 50mg Take 1 U nivers (LYRICA) 50 3-31 capsule by it y of mg capsule 00:00: mouth 3 [place] (three) Medical times Branch daily. pregabalin 2020-0 Yes [id number] 50mg Take 1 U nivers (LYRICA) 50 3-31 capsule by it y of mg capsule 00:00: mouth 3 [place] (three) Medical times Branch daily. pregabalin 2020-0 2020- No [id number] 50mg Take 1 Univers (LYRICA) 50 3-31 08-21 capsule by i ty of mg capsule 00:00: 00:00 mouth 3 [place] as 00 :00 (three) Medical times Branch daily. pregabalin 2020-0 Yes [id number] 50mg Take 1 U nivers (LYRICA) 50 1-24 capsule by it y of mg capsule 00:00: mouth 2 [place] (two) Medical times Branch daily. pregabalin 2020-0 Yes [id number] 50mg Take 1 U nivers (LYRICA) 50 1-24 capsule by it y of mg capsule 00:00: mouth 2 [place] (two) Medical times Branch daily. pregabalin 2020- No [id number] 50mg Take 1 Univers (LYRICA) 50 1-24 03-31 capsule by i ty of mg [...] Medical (twelve) Branch hours. pregabalin 2019-0 Yes [id number] 50mg Take 1 U nivers (LYRICA) 50 8-26 capsule by it y of mg capsule 00:00: mouth 2 [place] (two) Medical times Branch daily. pregabalin 2019-0 Yes [id number] 50mg Take 1 U nivers (LYRICA) 50 8-26 capsule by it y of mg capsule 00:00: mouth 2 [place] (two) Medical times Branch daily. pregabalin 2020- No [id number] 50mg Take 1 Univers (LYRICA) 50 8-26 01-24 capsule by i ty of mg capsule 00:00: 00:00 mouth 2 [place] 00 :00 (two) Medical times Branch daily. OXcarbazepi 2018- Yes 150mg Take 1 Uni vers ne 6-04 tablet by ity of (TRILEPTAL) 00:00: mouth 2 [place] 150 mg 00 (two) Medical tablet times Branch daily. OXcarbazepi 2018- Yes 150mg Take 1 Uni vers ne 6-04 tablet by ity of (TRILEPTAL) 00:00: mouth 2 [place] 150 mg 00 (two) Medical tablet times Branch daily. pregabalin 2019- No 50mg Take 1 Univ ers (LYRICA) 50 4-30 08-26 capsule by i ty of mg capsule 00:00: 00:00 mouth [place] 00 :00 daily. Medical Branch pregabalin 2019- No 50mg Take 1 Univ ers (LYRICA) 50 4-30 08-26 capsule by i ty of mg capsule 00:00: 00:00 mouth [place] 00 :00 daily. Medical Branch OXcarbazepi Yes 150mg Q.5D Take 150 M ethodi ne 1-[address] (TRILEPTAL) 12:39: mouth 2 [facility] 150 MG 49 (two) l tablet times a day. pregabalin Yes 50mg QD Take 50 mg M ethodi (LYRICA) 50 1-[address] MG capsule 12:39: every Hospit a 49 morning. l Lactobacill 2018-0 Yes 1{capsu QD Take 1 M ethodi us 1-21 le} capsule by st acidophilus 12:39: mouth Hospi ta (FLORAJEN 49 every l ORAL) morning. docusate 2018-0 Yes 240mg QD Take 240 Meth jenny [...] every Hospita tablet 49 evening. l fenofibrate 2019-0 Yes 160mg QD Take 160 M ethodi (LOFIBRA) 1-[address] 160 MG 12:39: mouth Hospita tablet 49 every l evening. fluticasone 2019-0 Yes 2{spray QD 2 sprays Methodi (FLONASE) 1-21 } by Each st 50 12:39: Nare route Hospita mcg/actuati 49 nightly as l on nasal needed for spray rhinitis. biotin 1 mg 2019-0 Yes 1000ug QD Take 1,000 Methodi tablet [...] (for Dry Eyes). meclizine 2019-0 Yes 25mg Q.[id number] Take 25 mg Methodi (ANTIVERT) 1-[id number] mouth [address] 25 mg 12:39: 3D (three) Hospita tablet 49 times a l day as needed for dizziness. levocetiriz 2019-0 Yes 5mg QD Take 5 mg M ethodi ine (XYZAL) 1-[address] 5 MG tablet 12:39: every Hospi ta 49 evening. l levothyroxi 2019-0 Yes 88ug QD Take 88 Met hodi ne 1-[address] (SYNTHROID, 12:39: mouth Hospi ta LEVOXYL) 88 49 every l mcg tablet morning. alendronate 2019-0 Yes 70mg Q7D Take 70 mg Methodi (FOSAMAX) 1-[address] 70 MG 12:39: once a Hospita tablet 49 week. (on l Tuesday) Take in the morning with a full glass of water on an empty stomach, do NOT take anything else by mouth or lie down for the next 30 min. levothyroxi 2019-0 Yes 88ug QD Take 88 Met hodi ne 1-[address] (SYNTHROID, 12:39: mouth Hospi ta LEVOXYL) 88 49 every l mcg tablet morning. alendronate 2019-0 Yes 70mg Q7D Take 70 mg Methodi [...] (two) l tablet times a day. pregabalin 2019-0 Yes 50mg QD Take 50 mg M [...] every Hospita tablet 49 evening. l fenofibrate 2019-0 Yes 160mg QD Take 160 M ethodi (LOFIBRA) 1-[address] 160 MG 12:39: mouth Hospita tablet 49 every l evening. fluticasone 2019-0 Yes 2{spray QD 2 sprays Methodi (FLONASE) 1-21 } by Each st 50 12:39: Nare route Hospita mcg/actuati 49 nightly as l on nasal needed for spray rhinitis. biotin 1 mg Yes 1000ug QD Take 1,000 Methodi tablet 1-[address] 12:39: mouth Hospita 49 every l evening. travoprost 2018- Yes 1[drp] QD Administer Methodi (TRAVATAN-Z 1-[address] ) 0.004 % 12:39: both eyes Hos maury 49 nightly. l propylene 2019- Yes 1[drp] Q24H Administer Methodi glycol 1-[address] (SYSTANE 12:39: both eyes Hosp alee BALANCE) 49 daily as l 0.6 % drops needed (for Dry Eyes). meclizine Yes 25mg Q.[id number] Take 25 mg Methodi (ANTIVERT) [id number] mouth [address] 25 mg 12:39: 3D (three) Hospita tablet 49 times a l day as needed for dizziness. levocetiriz Yes 5mg QD Take 5 mg M ethodi ine (XYZAL) [address] 5 MG tablet 12:39: [...] ity of 5 mg tablet 15:11: every [place] 02 evening. Medical Branch ipratropium 2017-03 Yes 2{spray Use 2 Un hi 42 mcg 0-25 } Sprays in ity of (0.06 %) 15:11: each [place] nasal spray 02 nostril 4 Med ical [...] 0-25 mouth ity of ACID/EPA 15:11: daily. [place] (FISH OIL 02 Medical ORAL) Branch Cinnamon [...] mg by ity of ORAL) 15:11: mouth. [place] 02 Medical Branch Cholecalcif 2017-03 Yes Take by Uni vers brian, 0-25 mouth. ity of Vitamin D3, 15:11: [place] (VITAMIN 02 Medical D-3) 5,000 Branch unit [...] 0-25 mouth ity of ACID/EPA 15:11: daily. [place] (FISH OIL 02 Medical ORAL) Branch Cinnamon [...] in ity of (0.06 %) 15:11: each [place] nasal spray 02 nostril 4 Med ical [...] 0-25 mouth ity of ACID/EPA 15:11: daily. [place] (FISH OIL 02 Medical ORAL) Branch Cinnamon [...] mg by ity of ORAL) 15:11: mouth. [place] 02 Medical Branch Cholecalcif 2017-03 Yes Take by Uni vers brian, 0-25 mouth. ity of Vitamin D3, 15:11: [place] (VITAMIN 02 Medical D-3) 5,000 Branch unit [...] in ity of (0.06 %) 15:11: each [place] nasal spray 02 nostril 4 Med ical [...] 0-25 mouth ity of ACID/EPA 15:11: daily. [place] (FISH OIL 02 Medical ORAL) Branch Cinnamon [...] 0-25 mouth ity of ACID/EPA 15:11: daily. [place] (FISH OIL 02 Medical ORAL) Branch levocetiriz 2017-03 Yes 5mg Take 5 mg U nivers ine (XYZAL) 0-25 by mouth ity of 5 mg tablet 15:11: every [place] 02 evening. Medical Branch ipratropium 2017-03 Yes 2{spray Use 2 Un hi 42 mcg 0-25 } Sprays in ity of (0.06 %) 15:11: each [place] nasal spray 02 nostril 4 Med ical [...] 0-25 mouth ity of ACID/EPA 15:11: daily. [place] (FISH OIL 02 Medical ORAL) Branch Cinnamon [...] mg by ity of ORAL) 15:11: mouth. [place] [address] Medical Branch Cholecalcif 2017-03 Yes Take by Uni vers brian, 0-25 mouth. ity of Vitamin D3, 15:11: [place] (VITAMIN 02 Medical D-3) 5,000 Branch unit [...] mg by ity of ORAL) 15:11: mouth. [place] [address] Medical Branch levocetiriz 2017-03 Yes 5mg Take [...] 0-25 mouth. ity of Vitamin D3, 15:11: [place] (VITAMIN 02 Medical D-3) 5,000 Branch unit Tab levothyroxi [...] 0-25 mouth ity of ACID/EPA 15:11: daily. [place] (FISH OIL 02 Medical ORAL) Branch Cinnamon [...] mg by ity of ORAL) 15:11: mouth. [place] 02 Medical Branch risedronate 2017-03 Yes 150mg Take 150 U nivers (ACTONEL) 0-25 mg by ity of 150 mg 15:11: mouth once [place] tablet 02 every Medical month. Branch Cholecalcif 2017-03 Yes Take by Uni vers brian, 0-25 mouth. ity of Vitamin D3, 15:11: [place] (VITAMIN 02 Medical D-3) 5,000 Branch unit Tab risedronate 2017-03 Yes 150mg Take 150 U nivers (ACTONEL) 0-25 mg by ity of 150 mg 15:11: mouth once [place] tablet 02 every Medical month. Branch FLUTICASONE 2017-03 Yes Use in [facility] ers PROPIONATE 0-25 each ity of (FLONASE 15:11: nostril as Mike as NASAL) 02 needed. Medical Branch FLUTICASONE 2017-03 Yes Use in [facility] ers PROPIONATE 0-25 each ity of (FLONASE [...] 0-25 mouth ity of ACID/EPA 15:11: daily. [place] (FISH OIL 02 Medical ORAL) Branch Cinnamon [...] 0-25 mouth ity of ACID/EPA 15:11: daily. [place] (FISH OIL 02 Medical ORAL) Branch Cinnamon [...] 0-25 mouth ity of ACID/EPA 15:11: daily. [place] (FISH OIL 02 Medical ORAL) Branch Cinnamon [...] ity of 5 mg tablet 15:11: every [place] 02 evening. Medical Branch UBIDECARENO 2017-03 Yes 100mg Take 100 U nivers NE (COQ-10 0-25 mg by ity of ORAL) 15:11: mouth. [place] 02 Medical Branch Cholecalcif 2017-03 Yes Take by Uni vers brian, 0-25 mouth. ity of Vitamin D3, 15:11: [place] (VITAMIN 02 Medical D-3) 5,000 Branch unit Tab risedronate 2017-03 Yes 150mg Take 150 U nivers (ACTONEL) 0-25 mg by ity of 150 mg 15:11: mouth once [place] tablet 02 every Medical month. Branch FLUTICASONE 2017-03 Yes Use in Univ ers PROPIONATE 0-25 each ity of (FLONASE 15:11: nostril as Mike as NASAL) 02 needed. Medical Branch ipratropium 2017-03 Yes 2{spray Use 2 Un hi 42 mcg 0-25 } Sprays in ity of (0.06 %) 15:11: each [place] nasal spray 02 nostril 4 Med ical (four) Branch times daily. levocetiriz 2017-03 Yes 5mg Take 5 mg U nivers ine (XYZAL) 0-25 by mouth ity of 5 mg tablet 15:11: every [place] 02 evening. Medical Branch ipratropium 2017-03 Yes 2{spray Use 2 Un hi 42 mcg 0-25 } Sprays in ity of (0.06 %) 15:11: each [place] nasal spray 02 nostril 4 Med ical [...] 0-25 mouth ity of ACID/EPA 15:11: daily. [place] (FISH OIL 02 Medical ORAL) Branch Cinnamon [...] mg by ity of ORAL) 15:11: mouth. [place] 02 Medical Branch Cholecalcif 2017-03 Yes Take by Uni vers brian, 0-25 mouth. ity of Vitamin D3, 15:11: [place] (VITAMIN 02 Medical D-3) 5,000 Branch unit [...] 0-25 mouth ity of ACID/EPA 15:11: daily. [place] (FISH OIL 02 Medical ORAL) Branch Cinnamon [...] mg by ity of ORAL) 15:11: mouth. [place] 02 Medical Branch Cholecalcif 2017-03 Yes Take by Uni vers brian, 0-25 mouth. ity of Vitamin D3, 15:11: [place] (VITAMIN 02 Medical D-3) 5,000 Branch unit [...] in ity of (0.06 %) 15:11: each [place] nasal spray 02 nostril 4 Med ical (four) Branch times daily. carvedilol 2017-03 Yes 3.125mg Take 3.125 Univers (COREG) 0-25 mg by ity of 3.125 mg 15:11: mouth 2 [place] tablet 02 (two) Medical times Branch daily with meals. DOCOSAHEXAN 2017-03 Yes Take by Uni vers OIC 0-25 mouth ity of ACID/EPA 15:11: daily. [place] (FISH OIL 02 Medical ORAL) Branch Cinnamon [...] mg by ity of ORAL) 15:11: mouth. [place] 02 Medical Branch Cholecalcif 2017-03 Yes Take by Uni vers brian, 0-25 mouth. ity of Vitamin D3, 15:11: [place] (VITAMIN 02 Medical D-3) 5,000 Branch unit [...] in ity of (0.06 %) 15:11: each [place] nasal spray 02 nostril 4 Med ical (four) Branch times daily. carvedilol 2017-03 Yes 3.125mg Take 3.125 Univers (COREG) 0-25 mg by ity of 3.125 mg 15:11: mouth 2 [place] tablet 02 (two) Medical times Branch daily with meals. DOCOSAHEXAN 2017-03 Yes Take by Uni vers OIC 0-25 mouth ity of ACID/EPA 15:11: daily. [place] (FISH OIL 02 Medical ORAL) Branch Cinnamon [...] mg by ity of ORAL) 15:11: mouth. [place] 02 Medical Branch Cholecalcif 2017-03 Yes Take by Uni vers brian, 0-25 mouth. ity of Vitamin D3, 15:11: [place] (VITAMIN 02 Medical D-3) 5,000 Branch unit [...] in ity of (0.06 %) 15:11: each [place] nasal spray 02 nostril 4 Med ical (four) Branch times daily. carvedilol 2017-03 Yes 3.125mg Take 3.125 Univers (COREG) 0-25 mg by ity of 3.125 mg 15:11: mouth 2 [place] tablet 02 (two) Medical times Branch daily with meals. DOCOSAHEXAN 2017-03 Yes Take by Uni vers OIC 0-25 mouth ity of ACID/EPA 15:11: daily. [place] (FISH OIL 02 Medical ORAL) Branch Cinnamon [...] mg by ity of ORAL) 15:11: mouth. [place] 02 Medical Branch Cholecalcif 2017-03 Yes Take by Uni vers brian, 0-25 mouth. ity of Vitamin D3, 15:11: [place] (VITAMIN 02 Medical D-3) 5,000 Branch unit [...] 0-25 mouth ity of ACID/EPA 15:11: daily. [place] (FISH OIL 02 Medical ORAL) Branch carvedilol [...] mg by ity of ORAL) 15:11: mouth. [place] 02 Medical Branch Cholecalcif 2017-03 Yes Take [...] in ity of (0.06 %) 15:11: each [place] nasal spray 02 nostril 4 Med ical (four) Branch times daily. DOCOSAHEXAN 2017-03 Yes Take by Uni vers OIC 0-25 mouth ity of ACID/EPA 15:11: daily. [place] (FISH OIL 02 Medical ORAL) Branch carvedilol 2017-03 Yes 3.125mg Take 3.125 Univers (COREG) 0-25 mg by ity of 3.125 mg 15:11: mouth 2 [place] tablet 02 (two) Medical times Branch daily with meals. DOCOSAHEXAN 2017-03 Yes Take by Uni vers OIC 0-25 mouth ity of ACID/EPA 15:11: daily. [place] (FISH OIL 02 Medical ORAL) Branch Cinnamon [...] mg by ity of ORAL) 15:11: mouth. [place] [address] Medical Branch Cholecalcif 2017-03 Yes Take by Uni vers brian, 0-25 mouth. ity of Vitamin D3, 15:11: [place] (VITAMIN Medical D-3) 5,000 Branch unit Tab risedronate 2017-03 Yes 150mg Take 150 U nivers (ACTONEL) 0-25 mg by ity of 150 mg 15:11: mouth once [place] tablet 02 every Medical month. Branch FLUTICASONE 2017-03 Yes Use in Univ ers PROPIONATE 0-25 each ity of (FLONASE 15:11: nostril as [place] as NASAL) 02 needed. Medical Branch dabigatran 2017-03 Yes 150mg Take 150 Un hi etexilate 0-25 mg by ity of (PRADAXA) 15:11: mouth 2 [place] 150 mg 02 (two) Medical capsule times Branch daily. levocetiriz 2017-03 Yes 5mg Take 5 mg U nivers ine (XYZAL) 0-25 by mouth ity of 5 mg tablet 15:11: every [place] evening. Medical Branch ipratropium 2017-03 Yes 2{spray Use 2 Un hi 42 mcg 0-25 } Sprays in ity of (0.06 %) 15:11: each [place] nasal spray 02 nostril 4 Med ical (four) Branch times daily. UBIDECARENO 2017-03 Yes 100mg Take 100 U nivers NE (COQ-10 0-25 mg by ity of ORAL) 15:11: mouth. [place] [address] Medical Branch carvedilol 2017-03 Yes 3.125mg Take 3.125 Univers (COREG) 0-25 mg by ity of 3.125 mg 15:11: mouth 2 [place] tablet 02 (two) Medical times Branch daily with meals. DOCOSAHEXAN 2017-03 Yes Take by Uni vers OIC 0-25 mouth ity of ACID/EPA 15:11: daily. [place] (FISH OIL Medical ORAL) Branch Cinnamon 2017-03 Yes 1000mg Take 1,000 U nivers Bark 0-25 mg by ity of (CINNAMON) 15:11: mouth 2 [place] 500 mg Cap 02 (two) Medical times Branch daily. dabigatran 2017-03 Yes 150mg Take 150 Un hi etexilate 0-25 mg by ity of (PRADAXA) 15:11: mouth 2 [place] 150 mg 02 (two) Medical capsule times Branch daily. UBIDECARENO 2017-03 Yes 100mg Take 100 U nivers NE (COQ-10 0-25 mg by ity of ORAL) 15:11: mouth. [place] [address] Medical Branch Cholecalcif 2017-03 Yes Take by Uni vers brian, 0-25 mouth. ity of Vitamin D3, 15:11: [place] (VITAMIN 02 Medical D-3) 5,000 Branch unit Tab Cholecalcif 2017-03 Yes Take by Uni vers brian, 0-25 mouth. ity of Vitamin D3, 15:11: [place] (VITAMIN 02 Medical D-3) 5,000 Branch unit Tab risedronate 2017-03 Yes 150mg Take 150 U nivers (ACTONEL) 0-25 mg by ity of 150 mg 15:11: mouth once [place] tablet 02 every Medical month. Branch FLUTICASONE 2017-03 Yes Use in [facility] ers PROPIONATE 0-25 each ity of (FLONASE [...] times daily. FLUTICASONE 2017-03 Yes Use in [facility] ers PROPIONATE 0-25 each ity of (FLONASE 15:11: nostril as [place] as NASAL) 02 needed. Medical Branch carvedilol 2017-03 Yes 3.125mg Take 3.125 Univers (COREG) 0-25 mg by ity of 3.125 mg 15:11: mouth 2 [place] tablet 02 (two) Medical times Branch daily with meals. DOCOSAHEXAN 2017-03 Yes Take by Uni vers OIC 0-25 mouth ity of ACID/EPA 15:11: daily. [place] (FISH OIL 02 Medical ORAL) Branch Cinnamon [...] 0-25 mouth. ity of Vitamin D3, 15:11: [place] (VITAMIN 02 Medical D-3) 5,000 Branch unit [...] 0-25 mouth ity of ACID/EPA 15:11: daily. [place] (FISH OIL 02 Medical ORAL) Branch Cinnamon [...] mg by ity of ORAL) 15:11: mouth. [place] Medical Branch Cholecalcif 2017-03 Yes Take by Uni vers brian, 0-25 mouth. ity of Vitamin D3, 15:11: [place] (VITAMIN 02 Medical D-3) 5,000 Branch unit [...] in ity of (0.06 %) 15:11: each [place] nasal spray 02 nostril 4 Med ical [...] 0-25 mouth ity of ACID/EPA 15:11: daily. [place] (FISH OIL 02 Medical ORAL) Branch Cinnamon [...] mg by ity of ORAL) 15:11: mouth. [place] Medical Branch Cholecalcif 2017-03 Yes Take by Uni vers brian, 0-25 mouth. ity of Vitamin D3, 15:11: [place] (VITAMIN 02 [facility] D-3) 5,000 Branch unit Tab risedronate 2017-03 [...] by mouth ity of tablet 15:11: weekly. [place] Medical Branch furosemide 2017-03 Yes 20mg Take 20 mg U nivers 20 mg 0-25 by mouth ity of tablet 15:11: daily. [place] [facility] losartan 25 2017-03 Yes 25mg Take 25 mg Univers mg tablet 0-25 by mouth ity of 15:11: daily. [place] [facility] amiodarone 2017-03 Yes 200mg Take [...] by mouth ity of tablet 15:11: weekly. [place] [facility] furosemide 2017-03 Yes 20mg Take 20 mg U nivers 20 mg 0-25 by mouth ity of tablet 15:11: daily. [place] [facility] losartan 25 2017-03 Yes 25mg [...] by mouth ity of tablet 15:11: daily. [address] Branch losartan 25 2017-03 Yes 25mg Take 25 mg Univers mg tablet 0-25 by mouth ity of 15:11: daily. [address] Branch amiodarone 2017-03 Yes 200mg Take 200 Un hi 200 mg 0-25 mg by ity of tablet 15:11: mouth [place] daily. Medical Branch rivaroxaban 2017-03 Yes Take by Uni vers (XARELTO) 0-25 mouth. ity of 20 mg 15:11: [place] tablet Medical Branch Fenofibrate 2017-03 Yes 1{tbl} Take 1 Un hi 160 mg 0-25 tablet by ity of tablet 15:11: mouth [place] every Medical evening. Branch travoprost 2017-03 Yes 1[drp] 1 Drop at Univers (TRAVATAN 0-25 bedtime. ity of Z) 0.004 % 15:11: [place] ophthalmic Medical solution Branch propylene 2017-03 Yes 1[drp] Place 1 Uni vers glycol 0-25 Drop in ity of (SYSTANE 15:11: each eye [facility] as needed. Medica l OPHTHALMIC) Branch biotin 2017-03 Yes 1{dose} Take 1 Univer s 1,000 mcg 0-25 Dose by ity of Chew 15:11: mouth [place] daily. Medical Branch alendronate 2017-03 Yes 70mg Take 70 mg Univers 70 mg 0-25 by mouth ity of tablet 15:11: weekly. [address] furosemide 2017-03 Yes 20mg Take 20 mg U nivers 20 mg 0-25 by mouth ity of tablet 15:11: daily. [address] alendronate 2017-03 Yes 70mg Take 70 mg Univers 70 mg 0-25 by mouth ity of tablet 15:11: weekly. [place] [address] Medical [place] furosemide 2017-03 Yes 20mg Take 20 mg U nivers 20 mg 0-25 by mouth ity of tablet 15:11: daily. [address] losartan 25 2017-03 Yes 25mg Take 25 mg Univers mg tablet 0-25 by mouth ity of 15:11: daily. [address] amiodarone 2017-03 Yes 200mg Take 200 Un [...] 15:11: mouth [place] 01 daily. Medical Branch Fenofibrate 2017-03 Yes 1{tbl} [...] 15:11: mouth [place] 01 daily. Medical Branch propylene 2017-03 Yes 1[drp] Place 1 Uni vers glycol 0-25 Drop in ity of (SYSTANE 15:11: each eye [place] BALANCE 01 as needed. Medica l OPHTHALMIC) Branch rivaroxaban [...] in ity of (SYSTANE 15:11: each eye [facility] as needed. Medica l OPHTHALMIC) Branch biotin [...] bedtime. ity of Z) 0.004 % 15:11: [facility] Medical solution Branch propylene 2017-03 Yes 1[drp] [...] by mouth ity of tablet 15:11: daily. [place] [facility] losartan 25 2017-03 Yes 25mg [...] Chew 15:11: mouth [place] daily. Medical Branch rivaroxaban [...] 0-25 mouth ity of ACID/EPA 10:11: daily. [place] (FISH OIL 02 Medical ORAL) Branch Cinnamon [...] mg by ity of ORAL) 10:11: mouth. [place] 02 Medical Branch Cholecalcif 2017-03 Yes Take by Uni vers brian, 0-25 mouth. ity of Vitamin D3, 10:11: [place] (VITAMIN 02 Medical D-3) 5,000 Branch unit [...] ity of 5 mg tablet 10:11: every [place] 02 evening. Medical Branch ipratropium 2017-03 Yes 2{spray Use 2 Un hi 42 mcg 0-25 } Sprays in ity of (0.06 %) 10:11: each [place] nasal spray 02 nostril 4 Med ical (four) Branch times daily. carvedilol 2017-03 Yes 3.125mg Take 3.125 Univers (COREG) 0-25 mg by ity of 3.125 mg 10:11: mouth 2 [place] tablet 02 (two) Medical times Branch daily with meals. DOCOSAHEXAN 2017-03 Yes Take by Uni vers OIC 0-25 mouth ity of ACID/EPA 10:11: daily. [place] (FISH OIL 02 Medical ORAL) Branch Cinnamon [...] mg by ity of ORAL) 10:11: mouth. [place] [facility] Cholecalcif 2017-03 Yes Take by Uni vers brian, 0-25 mouth. ity of Vitamin D3, 10:11: [place] (VITAMIN Medical D-3) 5,000 Branch unit Tab risedronate 2017-03 Yes 150mg Take 150 U nivers (ACTONEL) 0-25 mg by ity of 150 mg 10:11: mouth once [place] tablet 02 every Medical month. Branch FLUTICASONE [...] in ity of (0.06 %) 10:11: each [place] nasal spray 02 nostril 4 Med ical (four) Branch times daily. carvedilol 2017-03 Yes 3.125mg Take 3.125 Univers (COREG) 0-25 mg by ity of 3.125 mg 10:11: mouth 2 [place] tablet 02 (two) Medical times Branch daily with meals. DOCOSAHEXAN 2017-03 Yes Take by Uni vers OIC 0-25 mouth ity of ACID/EPA 10:11: daily. [place] (FISH OIL 02 Medical ORAL) Branch Cinnamon [...] mg by ity of ORAL) 10:11: mouth. [place] [facility] Cholecalcif 2017-03 Yes Take by Uni vers brian, 0-25 mouth. ity of Vitamin D3, 10:11: [place] (VITAMIN [facility] D-3) 5,000 Branch unit Tab risedronate 2017-03 [...] ity of 5 mg tablet 10:11: every [place] 02 evening. Medical Branch ipratropium 2017-03 Yes 2{spray Use 2 Un hi 42 mcg 0-25 } Sprays in ity of (0.06 %) 10:11: each [place] nasal spray 02 nostril 4 Med ical (four) Branch times daily. carvedilol 2017-03 Yes 3.125mg Take 3.125 Univers (COREG) 0-25 mg by ity of 3.125 mg 10:11: mouth 2 [place] tablet 02 (two) Medical times Branch daily with meals. DOCOSAHEXAN 2017-03 Yes Take by Uni vers OIC 0-25 mouth ity of ACID/EPA 10:11: daily. [place] (FISH OIL 02 Medical ORAL) Branch Cinnamon [...] 0-25 mouth. ity of Vitamin D3, 10:11: [place] (VITAMIN 02 Medical D-3) 5,000 Branch unit [...] ity of 5 mg tablet 10:11: every [place] 02 evening. Medical Branch ipratropium 2017-03 Yes 2{spray Use 2 Un hi 42 mcg 0-25 } Sprays in ity of (0.06 %) 10:11: each [place] nasal spray 02 nostril 4 Med ical (four) Branch times daily. carvedilol 2017-03 Yes 3.125mg Take 3.125 Univers (COREG) 0-25 mg by ity of 3.125 mg 10:11: mouth 2 [place] tablet 02 (two) Medical times Branch daily with meals. DOCOSAHEXAN 2017-03 Yes Take by Uni vers OIC 0-25 mouth ity of ACID/EPA 10:11: daily. [place] (FISH OIL 02 Medical ORAL) Branch Cinnamon [...] 0-25 mouth. ity of Vitamin D3, 10:11: [place] (VITAMIN 02 Medical D-3) 5,000 Branch unit [...] in ity of (0.06 %) 10:11: each [place] nasal spray 02 nostril 4 Med ical (four) Branch times daily. carvedilol 2017-03 Yes 3.125mg Take 3.125 Univers (COREG) 0-25 mg by ity of 3.125 mg 10:11: mouth 2 [place] tablet 02 (two) Medical times Branch daily with meals. DOCOSAHEXAN 2017-03 Yes Take by Uni vers OIC 0-25 mouth ity of ACID/EPA 10:11: daily. [place] (FISH OIL 02 Medical ORAL) Branch Cinnamon [...] mg by ity of ORAL) 10:11: mouth. [place] [facility] Cholecalcif 2017-03 Yes Take by Uni vers brian, 0-25 mouth. ity of Vitamin D3, 10:11: [place] (VITAMIN 02 Medical D-3) 5,000 Branch unit [...] in ity of (0.06 %) 10:11: each [place] nasal spray 02 nostril 4 Med ical (four) Branch times daily. carvedilol 2017-03 Yes 3.125mg Take 3.125 Univers (COREG) 0-25 mg by ity of 3.125 mg 10:11: mouth 2 [place] tablet 02 (two) Medical times Branch daily with meals. DOCOSAHEXAN 2017-03 Yes Take by Uni vers OIC 0-25 mouth ity of ACID/EPA 10:11: daily. [place] (FISH OIL 02 Medical ORAL) Branch Cinnamon [...] mg by ity of ORAL) 10:11: mouth. [place] [id number] Medical Branch Cholecalcif 2017-03 Yes Take by Uni vers brian, 0-25 mouth. ity of Vitamin D3, 10:11: [place] (VITAMIN 02 Medical D-3) 5,000 Branch unit [...] by mouth ity of tablet 10:11: daily. [place] [address] Medical Branch losartan 2017-03 Yes 25mg Take 25 mg Univers mg tablet 0-25 by mouth ity of 10:11: daily. [place] [address] Medical Branch amiodarone 2017-03 Yes 200mg Take 200 Un hi 200 mg 0-25 mg by ity of tablet 10:11: mouth [place] 01 daily. Medical Branch travoprost 2017-03 Yes 1[drp] 1 Drop at Univers (TRAVATAN 0-25 bedtime. ity of Z) 0.004 % 10:11: [place] ophthalmic 01 Medical solution Branch propylene [...] by mouth ity of tablet 10:11: daily. [place] [address] Medical Branch losartan 25 2017-03 Yes 25mg [...] Dose by ity of Chew 10:11: mouth daily. Medical Branch furosemide 2017-03 Yes 20mg Take 20 mg U nivers 20 mg 0-25 by mouth ity of tablet 10:11: daily. [place] [facility] losartan 25 2017-03 Yes 25mg Take 25 mg Univers mg tablet 0-25 by mouth ity of 10:11: daily. Medical Branch amiodarone 2017-03 Yes 200mg Take 200 Un hi 200 mg 0-25 mg by ity of tablet 10:11: mouth daily. Medical Branch travoprost 2017-03 Yes [...] Dose by ity of Chew 10:11: mouth daily. Medical Branch Vital Signs Vital Name Observation Time Observation Value Comments Source Systolic blood 2020-08-18 15:19:00 142 mm[Hg] Univer sity [facility] Diastolic blood 2020-08-18 15:19:00 74 mm[Hg] Unive rsity [facility] Heart rate 2020-08-18 15:11:00 61 /min [facility] Body weight 2020-08-18 15:11:[address] [facility] BMI 2020-08-18 15:11:00 28.32 kg/m2 [facility] Systolic blood 2018-11-06 20:19:00 130 mm[Hg] Univer sity [facility] Diastolic blood 2018-11-06 20:19:00 72 mm[Hg] Unive rsity [facility] Heart rate 2018-11-06 20:19:00 70 /min [facility] Respiratory rate 2018-11-06 20:19:00 19 /[facility] 2018-11-06 20:19:[address] [facility] Body weight 2018-11-06 20:19:[address] [facility] BMI 2018-11-06 20:19:00 29.87 kg/m2 [facility] Oxygen saturation in 2018-11-06 20:19:00 96 /min [facility] Arterial blood by [facility] Pulse oximetry Branch Procedures Procedure Date / Time Performing Clinician Source Performed EXTERNAL PROVIDER RECORDS 2021-07-02 05:01:00 Doctor Unassigned, [facility] Name [facility] EXTERNAL PROVIDER RECORDS 2020-08-25 05:01:00 Doctor Unassigned, [facility] Name [facility] MEDICATION CORRESPONDENCE 2020-04-25 06:01:00 Doctor Unassigned, [facility] Name [facility] MEDICATION CORRESPONDENCE 2019-04-06 06:01:00 Doctor Unassigned, [facility] Name [facility] Plan of Care Planned Activity Planned Date Details Comments Source Future Scheduled 2022-09-01 COVID-19 VACCINE (#1) [facility] Test 14:46:06 [code = COVID-19 VACCINE (#1)] Future Scheduled 2022-09-01 SHINGLES VACCINES (1 [facility] Hospital Test 14:46:06 of 2) [code = SHINGLES VACCINES (1 of 2)] Future Scheduled 2022-09-01 65+ [facility] 14:46:06 VACCINE (1 - PCV) [code = 65+ PNEUMOCOCCAL VACCINE (1 - PCV)] Future Scheduled 2022-09-01 INFLUENZA VACCINE Method [facility] Hospital Test 14:46:06 [code = INFLUENZA VACCINE] Future Scheduled 2022-06-16 COVID-19 VACCINE (#1) [facility] Test 17:18:41 [code = COVID-19 VACCINE (#1)] Future Scheduled 2022-06-16 SHINGLES VACCINES (1 [facility] Hospital Test 17:18:41 of 2) [code = SHINGLES VACCINES (1 of 2)] Future Scheduled 2022-06-16 65+ [facility] 17:18:[facility] VACCINE (1 - PCV) [code = 65+ PNEUMOCOCCAL VACCINE (1 - PCV)] Future Scheduled 2022-06-16 INFLUENZA VACCINE Method [facility] Test 17:18:41 [code = INFLUENZA VACCINE] Encounters Start End Encounter Admission Attending Care Care Encounter Source Date/Time Date/Time Type Type Clinicians Facility Department ID 2023-03-22 2023-03-22 Outpatient [facility]IE MHIE [id number] [facility] 09:30:00 09:30:00 04 praveen Velasquez 2022-09-21 2022-09-21 Outpatient MHIE MHIE [id number] [facility] 09:30:00 09:30:00 03 praveen NicholasHewlett 2022-09-21 2022-09-21 Outpatient MHIE MHIE [id number] [facility]oria 09:30:00 09:30:00 03 praveen Ron 2022-03-23 2022-03-23 Outpatient MHIE MHIE [id number] [facility]oria 09:30:00 09:30:00 02 praveen Velasquez 2022-03-23 2022-03-23 Outpatient MHIE MHIE [id number] Memoria 09:30:00 09:30:00 02 praveen Ron 2021-09-15 2021-09-15 Outpatient MHIE MHIE [id number] [facility]oria 09:15:00 09:15:00 01 praveen NicholasHewlett 2021-09-15 2021-09-15 Outpatient MHIE MHIE [id number] Memoria 09:15:00 09:15:00 01 praveen Velasquez 2021-07-02 2021-07-02 Orders Doctor PING 1.2.840.114 [id number] Univers 00:00:00 00:00:00 Only Unassigned, NOAH [id number] ity [place] [facility] [id number] Mike as [phone] [address] 2021-06-09 2021-06-09 Outpatient RA[facility]INDER [facility] [id number] Univers 11:40:00 11:40:00 RAJINDER SOTELO [facility] [place] [facility] 2021-06-05 2021-06-05 Outpatient MHIE MHIE [id number] Memoria 14:00:00 14:00:00 00 praveen Velasquez 2021-06-05 2021-06-05 [facility] [id number] 14:00[facility]00 00 praveen Velasquez 2021-05-26 2021-05-26 Tree SoteloRUST 1.2.840.114 [id number] Univers 00:00:00 00:00:00 Rajinder HUI [id number] [place] of [employer] [id number] [phone] [address] 2021-05-22 2021-05-22 [facility] S[facility] 1.2.840.114 [id number] Univers 00:00:00 00:00:00 Rajinder HUI [id number] [place] [employer] [id number] [phone] [address] 2021-05-18 2021-05-18 [facility] MccollumocheRUST 1.2.840.114 [id number] Univers 00:00:00 00:00:00 Rajinder HUI [id number] [place] [employer] [id number] [phone] [address] 2021-04-16 2021-04-16 [facility] DeepakRUST 1.2.840.114 [id number] Univers 00:00:00 00:00:00 Rajinder HUI [id number] [place] [employer] [id number] [phone] [address] 2021-01-22 2021-01-22 [facility] SoteloRUST 1.2.840.114 [id number] Univers 00:00:00 00:00:00 Rajinder HUI [id number] [place] of [employer] [id number] [phone] [address] 2021-01-19 2021-01-19 [facility] S[facility]elo[facility] 1.2.840.114 [id number] Univers 00:00:00 00:00:00 Rajinder Pace KLAUDIA [id number] ity of [facility] [id number] [phone] [address] 2020-10-08 2020-10-08 Chong SoteloRUST 1.2.840.114 [id number] Univers 00:00:00 00:00:00 Rajinder Pace Klaudia [id number] [id number] [phone] [address] 2020-10-06 2020-10-06 Tree SoteloRUST 1.2.840.114 [id number] Univers 00:00:00 00:00:00 Rajinder Pace Klaudia [id number] [id number] [phone] [address] 2020-09-19 2020-09-19 [facility] S[facility] 1.2.840.114 [id number] Univers 00:00:00 00:00:00 Rajinder Pace Klaudia [id number] [id number] [phone] [address] 2020-09-08 2020-09-08 [place] DeepakRUST 1.2.840.114 [id number] Univers 00:00:00 00:00:00 Rajinder Fryeton [id number] [id number] [phone] [address] 2020-08-25 2020-08-25 Orders Doctor FENG 1.2.840.114 [id number] Univers 00:00:00 00:00:00 Only Unassigned, NOAH [id number] it[place] [facility] [id number] Mike as [phone] [address] 2020-08-19 2020-08-19 Telephone DeepakRUST 1.2.840.114 [id number] Univers 00:00:00 00:00:00 Rajinder Pace Klaudia [id number] [id number] [phone] [address] 2020-08-18 2020-08-18 Office DeepakRUST 1.2.840.114 [id number] Univers 09:33:47 10:42:10 Visit Rajinder Fryeton [id number] [id number] [phone] [address] 2020-08-18 2020-08-18 Outpatient [facility]INDER [facility] [id number] Univers 09:40:00 09:40:00 [facility] 2020-08-04 2020-08-04 Telephone DeepakRUST 1.2.840.114 [id number] Univers 00:00:00 00:00:00 Rajinder Hui [id number] [id number] [phone] [address] 2020-07-09 2020-07-09 Refill DeepakRUST 1.2.840.114 [id number] Univers 00:00:00 00:00:00 Rajinder Hui [id number] [id number] [phone] Id dic[address] 2020-06-11 2020-06-11 Refill DeepakRUST 1.2.840.114 [id number] Univers 00:00:00 00:00:00 Rajinder Hui [id number] [id number] [phone] Id dicut nal [address] [place] [address] 2020-04-25 2020-04-25 Orders Doctor PING 1.2.840.114 [id number] Univers 00:00:00 00:00:00 Only Unassigned, NOAH [id number] it[place] of [place] [facility] [id number] Mike as [phone] [facility] [address] 2020-04-24 2020-04-24 [facility] 1.2.840.114 [id number] Univers 00:00:00 00:00:00 Rajinder Hui [id number] [id number] [phone] [address] 2020-04-10 2020-04-10 Tree SoteloRUST 1.2.840.114 [id number] Univers 00:00:00 00:00:00 Rajinder Hui [id number] [id number] [phone] [address] 2020-04-10 2020-04-10 Chong SoteloRUST 1.2.840.114 [id number] Univers 00:00:00 00:00:00 Rajinder Hui [id number] [id number] [phone] [address] 2019-12-06 2019-12-06 PING Le 1.2.840.114 [id number] Univers 00:00:00 00:00:00 Rajinder ZAMORA [id number] ity of [facility]OSPITAL [id number] [place] as [phone] [facility] [address] 2019-10-31 2019-10-31 Tree Sotelo [facility] 1.2.840.114 [id number] Univers 00:00:00 00:00:00 Rajinder Hui [id number] [id number] [phone] [address] 2019-08-10 2019-08-10 Refill Deepak [facility] 1.2.840.114 [id number] Univers 00:00:00 00:00:00 Rajinder Sanjeev Hui [id number] [id number] [phone] [address] 2019-06-12 2019-06-12 Telemedici Deepak [facility] 1.2.840.114 [id number] Univers 10:03:40 10:23:40 ne Visit Rajinder Hui [id number] [id number] [phone] [address] 2019-06-12 2019-06-12 Outpatient R RAJINDER SOTELO [facility] [id number] Univers 09:40:00 09:40:00 RAJINDER SOTELO ity [facility] 2019-04-06 2019-04-06 Orders Doctor IPNG 1.2.840.114 [id number] Univers 00:00:00 00:00:00 Only Unassigned, NOAH [id number] it[place] of [place] [facility] [id number] Mike as [phone] [address] 2019-04-06 2019-04-06 Refill Deepak [facility] 1.2.840.114 [id number] Univers 00:00:00 00:00:00 Rajinder Hui [id number] [id number] [phone] [address] 2018-11-06 2018-11-06 Office Deepak, [facility] 1.2.840.114 [id number] Univers 15:14:30 16:08:01 Visit Rajinder Hui [id number] [id number] [phone] [address] Results This patient has no known results.
[2022-09-21] MEDS ORDERED: ACETAMINOPHEN 500 MG TAB ONE ×2 (12:41→16:10)
--- NOTE | 2022-09-21 13:14 | RAD REPORT ---
EXAM DESCRIPTION: CT - CTHCSPWOC - 09/21/2022 12:32 pm CLINICAL HISTORY: fall COMPARISON: Head C Spine Mpr Wo Con dated 08/27/2022 TECHNIQUE: Axial thin cut noncontrast CT images of the head were obtained. Axial thin cut noncontrast CT images of the cervical spine were obtained. Multiplanar reformatted images were generated and reviewed. All CT scans are performed using dose optimization technique as appropriate and may include automated exposure control or mA/KV adjustment according to patient size. FINDINGS: CT HEAD WITHOUT CONTRAST: No acute hemorrhage, hydrocephalus or extra-axial collection is identified.No areas of brain edema or midline shift. The paranasal sinuses and mastoids are clear.The calvarium is intact. CT CERVICAL SPINE WITHOUT CONTRAST: No fracture or subluxation.Mild multilevel degenerative changes with at least moderate disc height lo ss at C4-5, C5-6, and C6-7 with endplate remodeling. Sqcx-xk-gyvthqdl bilateral neural foraminal narr owing at C5-6 and C6-7 secondary to endplate remodeling, uncovertebral joint, and facet degeneration. No prevertebral soft tissues swelling is identified. IMPRESSION: No acute traumatic intracranial or cervical spine findings.
--- NOTE | 2022-09-21 13:25 | RAD REPORT ---
EXAM DESCRIPTION: RAD - Pelvis - 09/21/2022 12:46 pm CLINICAL HISTORY: fall COMPARISON: Pelvis dated 08/27/2022 TECHNIQUE: Single AP view of the pelvis. FINDINGS: The visualized pelvic ring is intact. No suspicious osseous lesions. Stable mild degenerat satish changes of the hip joint and symphysis pubis. Other pelvic joints are unremarkable. Visualized as pects of the abdomen and soft tissues are unremarkable. IMPRESSION: No acute osseous abnormality of the bony pelvis. Stable mild degenerative changes.
--- NOTE | 2022-09-21 13:26 | RAD REPORT ---
EXAM DESCRIPTION: RAD - Hip Left 2 View - 09/21/2022 12:46 pm CLINICAL HISTORY: fall COMPARISON: None available TECHNIQUE: Left hip, AP and frogleg views of the left hip. FINDINGS: There is no fracture or dislocation. Mild degenerative changes. Calcifications adjacent to the greater tuberosity suggestive of sequelae of trochanteric bursitis. Vascular calcifications. No acute or destructive bony process seen. IMPRESSION: No acute findings of the left hip. Chronic findings as above.
--- NOTE | 2022-09-21 15:13 | ER ---
Nurse's Notes [facility] Name: Shanice Morales Age: 86 yrs Sex: Female : 1935 Arrival Date: 09/21/2022 Time: 12:24 Bed 14 Private MD: Diagnosis: Fall on same level, unspecified;sacral fractures Presentation: 09/21 12:20 Chief complaint: EMS states: patient had a mechanical fall onto the left hip and is ko1 complaining of left hip pain. No rotation or shortening noted. Patient is on xarelto, did not hit her head, no LOC. Coronavirus screen: At this time, the client does not indicate any symptoms associated with coronavirus-19. Ebola Screen: No symptoms or risks identified at this time. Initial Sepsis Screen: Does the patient meet any 2 criteria? No. Patient's initial sepsis screen is negative. Does the patient have a suspected source of infection? No. Patient's initial sepsis screen is negative. Risk Assessment: Do you want to hurt yourself or someone else? Patient reports no desire to harm self or others. Onset of symptoms was September 21, 2022. 12:20 Method Of Arrival: EMS: [facility] ko1 12:20 Acuity: KYA 3 ko1 Triage Assessment: 12:43 General: Appears in no apparent distress. uncomfortable, Behavior is cooperative, ko1 appropriate for age, anxious. Pain: Complains of pain in left gluteus donovan. Historical: - Allergies: 12:43 Compazine; ko1 12:43 Demerol; ko1 12:43 meperidine HCl; ko1 - PMHx: 12:43 Atrial Fib; Hyperlipidemia; nerve pain; Hypothyroidism; Hypertension; TIA; Vertigo; ko1 - Immunization history:: Adult Immunizations unknown. - Social history:: Smoking status: Patient denies any tobacco usage or history of. Screenin:30 [facility] ED Fall Risk Assessment (Adult) History of falling in the last 3 months, ko1 including since admission Yes- single mechanical fall (1 pt) Confusion or Disorientation No (0 pts) Intoxicated or Sedated No (0 pts) Impaired Gait No (0 pts) Mobility Assist Device Used No (0 pt) Altered Elimination No (0 pt) Score/Fall Risk Level 0 - 2 = Low Risk Oriented to surroundings, Maintained a safe environment, Educated pt \T\ family on fall prevention, incl call for assistance when getting out of bed, Assessed \T\ reinforced patient's understanding of fall precautions, Provided non-skid footwear, Hourly rounding (assess needs \T\ fall precautionary measures) done, Used ambulatory aids as needed (educated on \T\ assisted with), Used gait belt as appropriate. Abuse screen: Denies threats or abuse. Denies injuries from another. Nutritional screening: No deficits noted. Tuberculosis screening: No symptoms or risk factors identified. Assessment: 12:30 Neuro: No deficits noted. Cardiovascular: No deficits noted. Respiratory: No deficits ko1 noted. GI: No deficits noted. : No deficits noted. EENT: No deficits noted. Derm: No deficits noted. Musculoskeletal: Reports pain in left gluteus donovan. 12:35 Reassessment: Patient refused tylenol order. She said her seasonal recruiter told her not to ko1 take it. 15:55 Reassessment: Patient agreed to take tylenol after she was informed that she shouldn't ko1 take ibuprofen with xarelto, not tylenol. Tylenol given per orders, Aspercreme patch placed to coccyx where patient complained of pain. 16:00 Reassessment: Attempted to discharge patient, she was unable to get out of the bed due ko1 to the pain. Reports pain is more in the coccyx now. Notified Dr Webb. 16:20 Reassessment: Called Santa with Case Management to place admit patient to inpatient ss rehab. Vital Signs: 12:45 BP 158 / 67; Pulse 67; Resp 18; Temp 98; Pulse Ox 98% on R/A; ko1 15:27 BP 148 / 72; Pulse 72; Resp 18; Pulse Ox 99% ; ko1 20:57 BP 146 / 69; Pulse 71; Resp 17; Pulse Ox 95% on R/A; ll3 ED Course: 12:25 Patient arrived in ED. kj1 12:25 Maria Fernanda Boudreaux, KIARA is Primary Nurse. ko1 12:26 Ilia Webb MD is Attending Physician. jr11 12:30 Patient has correct armband on for positive identification. Bed in low position. Call ko1 light in reach. Side rails up X2. Provided Education on: Xray. 12:34 CT Head C Spine In Process Unspecified. EDMS 12:39 XRAY Pelvis In Process Unspecified. EDMS 12:39 XRAY Hip LEFT 2 view In Process Unspecified. EDMS 12:43 Triage completed. ko1 12:43 Arm band placed on right wrist. Patient placed in an exam room, on a stretcher, on ko1 pulse oximetry, Patient notified of wait time. 15:27 No provider procedures requiring assistance completed. Patient did not have IV access ko1 during this emergency room visit. 16:36 CT Pelvis wo Cont In Process Unspecified. EDMS 18:12 Inserted saline lock: 22 gauge in right antecubital area, using aseptic technique. rs5 Blood collected. 18:12 Basic Metabolic Panel Sent. rs5 18:12 CBC with Diff Sent. rs5 18:12 Type And Screen Sent. rs5 20:22 David Louis MD is Referral Physician. jr11 Administered Medications: 12:52 Not Given (Patient Refused): Acetaminophen PO 1000 mg PO once ko1 16:04 Drug: Acetaminophen PO 1000 mg Route: PO; ko1 16:16 Drug: Lidoderm Topical Patch 5 % (700 mg/patch) 1 patches Route: Topical; Site: ko1 affected area; Medication: 12:30 VIS not applicable for this client. ko1 Outcome: 15:13 Discharge ordered by . jr11 20:31 Discharge ordered by . jr11 21:13 Discharged to Rehab Facility ll3 21:13 Condition: stable 21:13 Discharge instructions given to patient, In pt rehab, report called to KIARA Tran 21:14 Patient left the ED. ll3 Signatures: Dispatcher [employer] EDMS Leyla Estrada RN RN Dorina Coreas Lynsea, RN RN ll3 Ilia Webb MD MD jr11 Maria Fernanda Boudreaux RN RN ko1 David Manzano rs5
--- NOTE | 2022-09-21 15:14 | EDPHYS ---
Physician Documentation [facility] Name: Shanice Morales Age: 86 yrs Sex: Female : 1935 Arrival Date: 09/21/2022 Time: 12:24 Bed 14 Private MD: ED Physician Ilia Webb HPI: 09/21 12:39 Patient is an 86-year-old that had a mechanical fall, fell onto the left hip. Patient jr11 complaining of left hip pain, denies any other injuries. Patient is on Xarelto, no headache no loss of consciousness was not ambulatory.. Historical: - Allergies: 12:43 Compazine; ko1 12:43 Demerol; ko1 12:43 meperidine HCl; ko1 - PMHx: 12:43 Atrial Fib; Hyperlipidemia; nerve pain; Hypothyroidism; Hypertension; TIA; Vertigo; ko1 - Immunization history:: Adult Immunizations unknown. - Social history:: Smoking status: Patient denies any tobacco usage or history of. ROS: 12:39 All other systems are negative. jr11 Exam: 12:39 Constitutional: This is a well developed, well nourished patient who is awake, alert, jr11 and in no acute distress. Head/Face: Normocephalic, atraumatic. Neck: Trachea midline, no thyromegaly or masses palpated, and no cervical lymphadenopathy. Supple, full range of motion without nuchal rigidity, or vertebral point tenderness. No Meningismus. Chest/axilla: Normal chest wall appearance and motion. Nontender with no deformity. No lesions are appreciated. Cardiovascular: Regular rate and rhythm with a normal S1 and S2. No gallops, murmurs, or rubs. Normal PMI, no JVD. No pulse deficits. Respiratory: Lungs have equal breath sounds bilaterally, clear to auscultation and percussion. No rales, rhonchi or wheezes noted. No increased work of breathing, no retractions or nasal flaring. Back: No spinal tenderness. No costovertebral tenderness. Full range of motion. MS/ Extremity: Pulses equal, no cyanosis. Neurovascular intact. Full, normal range of motion except left hip with mild range of motion pain. Neurovascularly intact distally Vital Signs: 12:45 BP 158 / 67; Pulse 67; Resp 18; Temp 98; Pulse Ox 98% on R/A; ko1 15:27 BP 148 / 72; Pulse 72; Resp 18; Pulse Ox 99% ; ko1 20:57 BP 146 / 69; Pulse 71; Resp 17; Pulse Ox 95% on R/A; ll3 MDM: 12:26 Patient medically screened. [facility] 12:39 Differential diagnosis: abrasion, closed head injury, contusion, fracture, multiple jr11 trauma, sprain, strain. Data reviewed: vital signs, nurses notes. 15:12 ED course: Head CT images reviewed by me, no bleed.. jr11 17:30 ED course: Spoke to ortho Dr Louis, non op sacrum, will place in rehab. jr11 17:44 ED course: Pt with stable pelvis, no neurologic complaints or deficits . [facility] 09/21 12:27 Order name: Basic Metabolic Panel; Complete Time: 19:04 [facility] 09/21 12:27 Order name: CBC with Diff; Complete Time: 19:04 [facility] 09/21 12:27 Order name: CT Head C Spine; Complete Time: 13:19 [facility] 09/21 12:27 Order name: XRAY Pelvis; Complete Time: 15:05 [facility] 09/21 12:28 Order name: XRAY Hip LEFT 2 view; Complete Time: 15:05 [facility] 09/21 12:35 Order name: CT Traumagram (Head C Spine CAP wo con) [facility] 09/21 15:54 Order name: CT Pelvis wo Cont; Complete Time: 17:21 [facility] Administered Medications: 12:52 Not Given (Patient Refused): Acetaminophen PO 1000 mg PO once ko1 16:04 Drug: Acetaminophen PO 1000 mg Route: PO; ko1 16:16 Drug: Lidoderm Topical Patch 5 % (700 mg/patch) 1 patches Route: Topical; Site: ko1 affected area; Disposition Summary: 09/21/22 20:31 Discharge Ordered Location: Home(09/21/22 20:31) [facility] Condition: Stable(09/21/22 20:31) 11 Diagnosis - Fall on same level, unspecified(09/21/22 20:31) jr11 - sacral fractures jr11 Followup: [facility] - With: David Louis MD - When: 1 week - Reason: Re-evaluation by your physician Discharge Instructions: - Discharge Summary Sheet jr11 Forms: - SBAR form ll3 - Medication Reconciliation Form jr11 - Thank You Letter jr11 - Antibiotic Education jr11 - Prescription Opioid Use jr11 - Patient Portal Instructions.htm jr11 Signatures: Dispatcher [employer] EDMS Giovanny Villar PA PA jmm Jackson, Kandis kj1 Ilia Webb MD MD jr11 Maria Fernanda Boudreaux, RN RN ko1 Corrections: (The following items were deleted from the chart) 12:33 12:28 Head C Spine Cap Wo Con+CT.RAD.BRZ ordered. EDMS EDMS 12:34 12:27 Labs collected and sent ordered. kj1 ko1 15:52 15:13 Home jr11 jr11 15:52 15:13 Stable jr11 jr11 15:52 15:13 Fall on same level, unspecified jr11 jr11 15: 15:13 Contusion of hip jr11 jr11
[2022-09-21] MEDS ORDERED: LIDOCAINE 4% PATCH ONE (16:19)
--- NOTE | 2022-09-21 17:17 | RAD REPORT ---
EXAM DESCRIPTION: CT - Pelvis Wo Cont - 09/21/2022 4:34 pm CLINICAL HISTORY: pain w ambulation sp fall COMPARISON: Hip Left 2 View dated 09/21/2022; Pelvis dated 09/21/2022 TECHNIQUE: Thin cut axial CT imaging of the pelvis was performed without IV contrast. Multiplanar re formats were generated and reviewed. All CT scans are performed using dose optimization technique as appropriate and may include automated exposure control or mA/KV adjustment according to patient size. FINDINGS: Comminuted and mildly displaced fractures involving S1 and S2 bodies, with buckling of the anterior cortex of the S1 to junction, as well as the posterior cortex more so on the right. Fractur e lines extend along the margins of the S1-S2 foramina bilaterally, as well as along the midline towa rds the anterior margin of the S1 superior endplate. Fractures also extend the sacral ala, reaching t he anterior articular margins of the sacroiliac joints bilaterally. Fracture lines extend along the s pinous process of S1 bilaterally. 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 Mildly displaced fracture at the base of the right L5 transverse process. Questionable chip fracture at the tip of the left L5 transverse process. Remainder of the pelvic bones are intact. Moderate pubic symphysis, and bilateral mild hip joint dege nerative changes. Mild presacral edema. No sizable hematoma. Mild colonic diverticulosis. Left inguinal fat containing hernia. IMPRESSION: Multiple comminuted fractures of the sacrum involving the S1 and S2 bodies the sacral al a with extensions as detailed above. Mildly displaced fracture at the base of the right L5 transverse process. Questionable chip fracture at the tip of the left L5 transverse process. Other findings as above. The findings were communicated to Giovanny Villar on 09/21/2022 at 17:08 hours.
[2022-09-21 18:22] LABS: Absolute Lymphocytes (CBC) 0.7 K/uL (0.7-4.9); Hematocrit 40.3 % (36.0-45.0); Lymphocytes % 5.8 % (15.3-44.8); MCV 86.4 fL (80-100); MPV 8.5 fL (7.6-11.3); RBC Red Blood Cell Count 4.66 M/uL (3.86-4.86)
[2022-09-21 18:35] LABS: Potassium 4.2 mEq/L (3.5-5.1)
[2022-09-21 23:17] VITALS: TEMP 98
[2022-09-21 23:20] VITALS: BP 146/69; O2SAT 95
== END 2022-09-21 21:14 | disposition home or self-care (01) ==
LOC: ER 12:24
DX: S32.10XA Unspecified fracture of sacrum, initial encounter for closed fracture (principal); I10 Essential (primary) hypertension; Z88.1 Allergy status to other antibiotic agents; Z88.5 Allergy status to narcotic agent
CPT/HCPCS: 85025; 80048; 36415; 70450; 72125; 72192; 72170; 73502; J2001

== ENCOUNTER 2022-09-30 12:06 | Inpatient (IN) | payer OTHER, MEDICARE ==
--- OUTSIDE RECORDS SUMMARY | 2022-09-30 12:16 | XMS REPORT | Continuity of Care Document ---
:1935 Author Organization [facility] t Address 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 ICD10 Diagnosis Term Vp Security Utility Allergies, Adverse Reactions, Alerts Allergy Allergy Status Severity Reaction(s) Onset Inactive Treating Comm ents Source Name Type Date Date Clinician Alvarado Wilsoni Active Other (See States Me thodi perazine [...] INGREDI 03-14 ity of 00:00: [place] 00 [facility] Social History Social Habit Start Date Stop Date Quantity Comments Source Gender identity [facility] Sexual orientation [facility] History of Social 2018-11-01 2018-11-[address] function 00:00:00 00:00:00 Hospital Alcohol intake 2018-03-29 2018-03-29 Current [facility] 00:00:00 00:00:00 non-drinker of Hospital alcohol (finding) Tobacco use and 2011-01-12 2011-01-12 Never used [facility] y of exposure 00:00:00 00:00:00 [facility] Sex Assigned At [birth year] [facility] 00:00:00 00:00:00 Hospital Smoking Status Start Date Stop Date Source Never smoker [facility] Medications Ordered Filled Start Stop Current Ordering Indication Dosage Frequency Signature Comments Components Source Medication Medication Date Date Medication? Clinician (SIG) Name Name pregabalin Yes [id number] 50mg Take 1 U nivers (LYRICA) 50 3-22 capsule [place] capsule [place] Medical [place] Branch daily. pregabalin Yes [id number] 50mg Take 1 [facility] nivers (LYRICA) 50 3-22 capsule by [place] y [place] mg capsule 00:00: [place] (three[place] Medical times Branch daily. pregabalin Yes [id number] 50mg Take 1 [facility] n[facility] (LYRICA) 50 3-16 capsule by [place] y [place] mg capsule 00:00[place] (three[place] Medical times Branch daily. pregabalin Yes [id number] 50mg Take 1 U nivers (LYRICA) 50 [...] Medical TIMES Branch DAILY. pregabalin 2020-03 Yes [id number] 50mg Take 1 U nivers (LYRICA) 50 1-12 capsule by [place] mg capsule [place]:00[place] (three[place] Medical times Branch daily. pregabalin 2020-03 Yes [id number] 50mg Take 1 U nivers (LYRICA) 50 1-12 capsule by it y [place] mg capsule 00:00: [place] (three[place] Medical times Branch daily. pregabalin 2020-03- No [id number] 50mg Take 1 Univers (LYRICA) 50 -02 13-16 capsule by i ty of mg capsule 00:00: 00:00 mouth 3 [place] as 00 :00 (three) Medical times Branch daily. pregabalin 2020-03- No [id number] 50mg Take 1 [facility] (LYRICA) 50 -02 13-16 capsule by i ty of mg capsule 00:00: 00:00 mouth 3 [place] 00 :00 (three) Medical times Branch daily. pregabalin 2020-03- No [id number] 50mg Take 1 Univers (LYRICA) 50 1-12 03-16 capsule by i ty of mg capsule 00:00: 00:00 mouth 3 [place] 00 :00 (three) Medical times Branch daily. OXCARBAZEPI 2020-03 Yes 150mg TAKE 1 Uni vers NE 150 mg 1-08 TABLET BY ity o f tablet 00:00: MOUTH 2 [place] 00 (TWO) Medical TIMES Branch DAILY. OXCARBAZEPI 2020-03 Yes 150mg TAKE 1 Uni vers NE 150 mg 1-08 TABLET BY ity o f tablet 00:00: MOUTH 2 [place] 00 (TWO) Medical TIMES Branch DAILY. OXCARBAZEPI [...] Medical tablet times Branch daily. PREGABALIN Yes [id number] TAKE 1 U nivers 50 mg 7-12 CAPSULE BY ity of capsule 00:00: MOUTH 3 [place] 00 TIMES Medical DAILY Branch PREGABALIN 2020-0 Yes [id number] TAKE 1 U nivers 50 mg 7-12 CAPSULE BY ity of capsule 00:00: MOUTH 3 [place] 00 TIMES Medical DAILY Branch PREGABALIN 2020-0 Yes [id number] TAKE 1 U nivers 50 mg 7-12 CAPSULE BY ity of capsule 00:00: MOUTH 3 [place] 00 TIMES Medical DAILY Branch PREGABALIN 2020-0 2020- No [id number] TAKE 1 Univers 50 mg 7-12 11-12 CAPSULE BY ity of capsule 00:00: 00:00 MOUTH 3 [place] 00 :00 TIMES Medical DAILY Branch PREGABALIN 2020-0 2020- No [id number] TAKE 1 Univers 50 mg 7-12 11-12 CAPSULE BY ity of capsule 00:00: 00:00 MOUTH 3 [place] 00 :00 TIMES Medical DAILY Branch OXcarbazepi [...] Medical tablet times Branch daily. OXcarbazepi 2020-0 202- No 150mg Take 1 Un hi ne [...] tablet times Branch daily. pregabalin 2021-0 Yes [id number] 50mg Take 1 U nivers (LYRICA) 50 2-12 capsule by it y of mg capsule 00:00: [place] (three[place] Medical times Branch daily. pregabalin 2021-0 Yes [id number] 50mg Take 1 U nivers (LYRICA) 50 2-12 capsule by it y of mg capsule 00:00: mouth [place] (three) Medical times Branch daily. pregabalin 2020-0 Yes [id number] 50mg Take 1 U nivers (LYRICA) 50 2-12 capsule by it y of mg capsule 00:00: mouth 3 [place] (three) Medical times Branch daily. pregabalin 2020-0 Yes [id number] 50mg Take 1 U nivers (LYRICA) 50 2-12 capsule by it y of mg capsule 00:00: mouth 3 [place] (three) Medical times Branch daily. pregabalin 2020-0 Yes [id number] 50mg Take 1 U nivers (LYRICA) 50 2-12 capsule by it y of mg capsule 00:00: mouth 3 [place] (three) Medical times Branch daily. pregabalin 2020-0 Yes [id number] 50mg Take 1 U nivers (LYRICA) 50 2-12 capsule by it y of mg capsule 00:00: mouth 3 [place] (three) Medical times Branch daily. pregabalin 2020-0 Yes [id number] 50mg Take 1 U nivers (LYRICA) 50 2-12 capsule by it y of mg capsule 00:00: mouth 3 [place] (three) Medical times Branch daily. pregabalin 2020-0 Yes [id number] 50mg Take 1 U nivers (LYRICA) 50 2-12 capsule by it y of mg capsule 00:00: mouth 3 [place] (three) Medical times Branch daily. pregabalin 2020-0 Yes [id number] 50mg Take 1 U nivers (LYRICA) 50 2-12 capsule by it y of mg capsule 00:00: mouth 3 [place] (three) Medical times Branch daily. pregabalin 2020-0 Yes [id number] 50mg Take 1 U nivers (LYRICA) 50 2-12 capsule by it y of mg capsule 00:00: mouth 3 [place] (three) Medical times Branch daily. pregabalin 2021-0 2021- No [id number] 50mg Take 1 Univers (LYRICA) 50 2-12 [...] (two) Medical tablet times Branch daily. OXcarbazepi 1-0 Yes 150mg Take 1 Uni vers ne [...] tablet times Branch daily. pregabalin 2020-0 Yes [id number] 50mg Take 1 U nivers (LYRICA) 50 8-21 capsule by it y of mg capsule 00:00: mouth 3 [place] (three) Medical times Branch daily. pregabalin 2020-0 Yes [id number] 50mg Take 1 U nivers (LYRICA) 50 8-21 capsule by it y of mg capsule 00:00: mouth 3 [place] (three) Medical times Branch daily. pregabalin 2020-0 Yes [id number] 50mg Take 1 U nivers (LYRICA) 50 8-21 capsule by it y of mg capsule 00:00: mouth 3 [place] (three) Medical times Branch daily. pregabalin 2020-0 Yes [id number] 50mg Take 1 U nivers (LYRICA) 50 8-21 capsule by it y of mg capsule 00:00: mouth 3 [place] (three) Medical times Branch daily. pregabalin 2020-0 2020- No [id number] 50mg Take 1 Univers (LYRICA) 50 8-21 [...] tablet times Branch daily. pregabalin 2020-0 Yes [id number] 50mg Take 1 U nivers (LYRICA) 50 3-31 capsule by it y of mg capsule 00:00: mouth 3 [place] (three) Medical times Branch daily. pregabalin 2020-0 Yes [id number] 50mg Take 1 U nivers (LYRICA) 50 3-31 capsule by it y of mg capsule 00:00: mouth 3 [place] (three) Medical times Branch daily. pregabalin 2020-0 2020- No [id number] 50mg Take 1 Univers (LYRICA) 50 3-31 08-21 capsule by i ty of mg capsule 00:00: 00:00 mouth 3 [place] as 00 :00 (three) Medical times Branch daily. pregabalin 2020-0 Yes [id number] 50mg Take 1 U nivers (LYRICA) 50 1-24 capsule by it y of mg capsule 00:00: mouth 2 [place] (two) Medical times Branch daily. pregabalin 2020-0 Yes [id number] 50mg Take 1 U nivers (LYRICA) 50 1-24 capsule by it y of mg capsule 00:00: mouth 2 [place] (two) Medical times Branch daily. pregabalin 2020- No [id number] 50mg Take 1 Univers (LYRICA) 50 1-24 [...] (two) Medical tablet times Branch daily. OXcarbazepi 2018-03- No 150mg Take 1 Un hi ne [...] Medical (twelve) Branch hours. pregabalin 2019-0 Yes [id number] 50mg Take 1 U nivers (LYRICA) 50 8-26 capsule by it y of mg capsule 00:00: mouth 2 [place] (two) Medical times Branch daily. pregabalin 2019-0 Yes [id number] 50mg Take 1 U nivers (LYRICA) 50 8-26 capsule by it y of mg capsule 00:00: mouth 2 [place] (two) Medical times Branch daily. pregabalin 2020- No [id number] 50mg Take 1 Univers (LYRICA) 50 8-26 [...] mouth [place] 00 :00 daily. Medical Branch alendronate Yes 70mg Q7D Take 70 mg [facility] (FOSAMAX) 1-[address] 70 MG 12:39: once a Hospita tablet 49 week. (on l Tuesday) Take in the morning with a full glass of water on an empty stomach, do NOT take anything else by mouth or lie down for the next 30 min. OXcarbazepi 2018-0 Yes 150mg Q.5D Take 150 M ethodi ne 1-[address] (TRILEPTAL) 12:39: mouth 2 Hos maury 150 MG 49 (two) l tablet times a day. pregabalin [id number] Yes 50mg QD Take 50 mg M [...] needed for spray rhinitis. biotin 1 mg 0 Yes 1000ug QD Take 1,000 [facility] tablet [...] (for Dry Eyes). meclizine 2019-0 Yes 25mg Q.[id number] Take 25 mg [facility] (ANTIVERT) 1-21 [id number] mouth [address] 25 mg 12:39: [...] (for Dry Eyes). meclizine 2019-0 Yes 25mg Q.[id number] Take 25 mg [facility] (ANTIVERT) 1-21 [id number] mouth [address] 25 mg 12:39: [...] 49 every l mcg tablet morning. alendronate 2018-0 Yes 70mg Q7D Take 70 mg [facility] [...] (for Dry Eyes). meclizine 2019-0 Yes 25mg Q.[id number] Take 25 mg [facility] (ANTIVERT) 1-[id number] mouth [address] 25 mg 12:39: [...] 88 49 every l mcg tablet morning. levothyroxi 2019-0 Yes 88ug QD Take 88 [...] mouth Hospita 49 every l evening. travoprost Yes 1[drp] QD Administer [facility] (TRAVATAN-Z 1-[address] ) 0.004 % 12:39: both eyes Hos maury 49 nightly. l propylene Yes 1[drp] Q24H Administer [facility] glycol 1-[address] (SYSTANE 12:39: both eyes Hosp alee BALANCE) 49 daily as l 0.6 % drops needed (for Dry Eyes). meclizine Yes 25mg Q.[id number] Take 25 mg [facility] (ANTIVERT) -21 [id number] mouth [address] 25 mg 12:39: 3D (three) Hospita tablet 49 times a l day as needed for dizziness. levocetiriz Yes 5mg QD Take 5 mg M ethodi ine (XYZAL) 04-[address] 5 MG tablet 12:39: every Hospi ta 49 evening. l Lactobac 2017-03 Yes Take 1 Univers no.30/Bifid 0-25 TAB-CAP/M2 it y of obact no.4 15:12: by mouth [place] as (ULTIMATE 27 daily. Medical MAYRA Branch PROBIOTIC ORAL) Lactobac 2017-03 Yes Take 1 Univers no.30/Bifid 0-25 TAB-CAP/M2 it y of obact no.4 15:12: by mouth [place] as (ULTIMATE 27 daily. Medical MAYRA Branch [...] ity of 5 mg tablet 15:11: every [place] 02 evening. Medical Branch ipratropium 2017-03 Yes 2{spray Use 2 Un hi 42 mcg 0-25 } Sprays in ity of (0.06 %) 15:11: each [place] nasal spray 02 nostril 4 Med ical [...] 0-25 mouth ity of ACID/EPA 15:11: daily. [place] (FISH OIL 02 Medical ORAL) Branch Cinnamon [...] 0-25 mouth. ity of Vitamin D3, 15:11: [place] (VITAMIN 02 Medical D-3) 5,000 Branch unit [...] in ity of (0.06 %) 15:11: each [place] nasal spray 02 nostril 4 Med ical [...] 0-25 mouth ity of ACID/EPA 15:11: daily. [place] (FISH OIL 02 Medical ORAL) Branch Cinnamon [...] mg by ity of ORAL) 15:11: mouth. [place] 02 Medical Branch Cholecalcif 2017-03 Yes Take by Uni vers brian, 0-25 mouth. ity of Vitamin D3, 15:11: [place] (VITAMIN 02 Medical D-3) 5,000 Branch unit [...] ipratropium 2017-03 Yes 2{spray Use 2 Un ih 42 mcg 0-25 } Sprays in ity [...] 0-25 mouth ity of ACID/EPA 15:11: daily. [place] (FISH OIL 02 Medical ORAL) Branch Cinnamon [...] mg by ity of ORAL) 15:11: mouth. [place] 02 Medical Branch Cholecalcif 2017-03 Yes Take by Uni vers brian, 0-25 mouth. ity of Vitamin D3, 15:11: [place] (VITAMIN 02 Medical D-3) 5,000 Branch unit [...] in ity of (0.06 %) 15:11: each [place] nasal spray 02 nostril 4 Med ical [...] 0-25 mouth ity of ACID/EPA 15:11: daily. [place] (FISH OIL 02 Medical ORAL) Branch Cinnamon [...] 0-25 mouth ity of ACID/EPA 15:11: daily. [place] (FISH OIL 02 Medical ORAL) Branch levocetiriz [...] 0-25 mouth ity of ACID/EPA 15:11: daily. [place] (FISH OIL 02 Medical ORAL) Branch Cinnamon [...] 0-25 mouth. ity of Vitamin D3, 15:11: [place] (VITAMIN 02 Medical D-3) 5,000 Branch unit Tab risedronate 2017-03 Yes 150mg Take 150 U nivers (ACTONEL) 0-25 mg by ity of 150 mg 15:11: mouth once [place] tablet 02 every Medical month. Branch FLUTICASONE [...] ity of 5 mg tablet 15:11: every [place] 02 evening. Medical Branch ipratropium 2017-03 Yes 2{spray Use 2 Un hi 42 mcg 0-25 } Sprays in ity of (0.06 %) 15:11: each [place] nasal spray 02 nostril 4 Med ical (four) Branch times daily. Cholecalcif 2017-03 Yes Take by Uni vers brian, 0-25 mouth. ity of Vitamin D3, 15:11: [place] (VITAMIN 02 Medical D-3) 5,000 Branch unit [...] 0-25 mouth ity of ACID/EPA 15:11: daily. [place] (FISH OIL 02 Medical ORAL) Branch Cinnamon [...] mg by ity of ORAL) 15:11: mouth. [place] 02 Medical Branch risedronate 2017-03 Yes 150mg Take 150 U nivers (ACTONEL) 0-25 mg by ity of 150 mg 15:11: mouth once [place] tablet 02 every Medical month. Branch Cholecalcif 2017-03 Yes Take by Uni vers brian, 0-25 mouth. ity of Vitamin D3, 15:11: [place] (VITAMIN 02 Medical D-3) 5,000 Branch unit [...] 0-25 mouth ity of ACID/EPA 15:11: daily. [place] (FISH OIL 02 Medical ORAL) Branch Cinnamon [...] 0-25 mouth ity of ACID/EPA 15:11: daily. [place] (FISH OIL 02 Medical ORAL) Branch Cinnamon [...] 0-25 mouth ity of ACID/EPA 15:11: daily. [place] (FISH OIL 02 Medical ORAL) Branch Cinnamon [...] 0-25 mouth ity of ACID/EPA 15:11: daily. [place] (FISH OIL 02 Medical ORAL) Branch Cinnamon [...] in ity of (0.06 %) 15:11: each [place] nasal spray 02 nostril 4 Med ical (four) Branch times daily. levocetiriz 2017-03 Yes 5mg Take 5 mg U nivers ine (XYZAL) 0-25 by mouth ity of 5 mg tablet 15:11: every [place] 02 evening. Medical Branch ipratropium 2017-03 Yes 2{spray Use 2 Un hi 42 mcg 0-25 } Sprays in ity of (0.06 %) 15:11: each [place] nasal spray 02 nostril 4 Med ical [...] 0-25 mouth ity of ACID/EPA 15:11: daily. [place] (FISH OIL 02 Medical ORAL) Branch Cinnamon [...] mg by ity of ORAL) 15:11: mouth. [place] 02 Medical Branch Cholecalcif 2017-03 Yes Take by Uni vers brian, 0-25 mouth. ity of Vitamin D3, 15:11: [place] (VITAMIN 02 Medical D-3) 5,000 Branch unit [...] in ity of (0.06 %) 15:11: each [place] nasal spray 02 nostril 4 Med ical [...] 0-25 mouth ity of ACID/EPA 15:11: daily. [place] (FISH OIL 02 Medical ORAL) Branch Cinnamon [...] 0-25 mouth. ity of Vitamin D3, 15:11: [place] (VITAMIN 02 Medical D-3) 5,000 Branch unit [...] in ity of (0.06 %) 15:11: each [place] nasal spray 02 nostril 4 Med ical (four) Branch times daily. carvedilol 2017-03 Yes 3.125mg Take 3.125 Univers (COREG) 0-25 mg by ity of 3.125 mg 15:11: mouth 2 [place] tablet 02 (two) Medical times Branch daily with meals. DOCOSAHEXAN 2017-03 Yes Take by Uni vers OIC 0-25 mouth ity of ACID/EPA 15:11: daily. [place] (FISH OIL 02 Medical ORAL) Branch Cinnamon [...] mg by ity of ORAL) 15:11: mouth. [place] 02 Medical Branch Cholecalcif 2017-03 Yes Take by Uni vers brian, 0-25 mouth. ity of Vitamin D3, 15:11: [place] (VITAMIN 02 Medical D-3) 5,000 Branch unit [...] in ity of (0.06 %) 15:11: each [place] nasal spray 02 nostril 4 Med ical (four) Branch times daily. carvedilol 2017-03 Yes 3.125mg Take 3.125 Univers (COREG) 0-25 mg by ity of 3.125 mg 15:11: mouth 2 [place] tablet 02 (two) Medical times Branch daily with meals. DOCOSAHEXAN 2017-03 Yes Take by Uni vers OIC 0-25 mouth ity of ACID/EPA 15:11: daily. [place] (FISH OIL 02 Medical ORAL) Branch Cinnamon [...] mg by ity of ORAL) 15:11: mouth. [place] 02 Medical Branch Cholecalcif 2017-03 Yes Take by Uni vers brian, 0-25 mouth. ity of Vitamin D3, 15:11: [place] (VITAMIN 02 Medical D-3) 5,000 Branch unit [...] ity of 5 mg tablet 15:11: every [place] 02 evening. Medical Branch ipratropium 2017-03 Yes 2{spray Use 2 Un hi 42 mcg 0-25 } Sprays in ity of (0.06 %) 15:11: each [place] nasal spray 02 nostril 4 Med ical (four) Branch times daily. carvedilol 2017-03 Yes 3.125mg Take 3.125 Univers (COREG) 0-25 mg by ity of 3.125 mg 15:11: mouth 2 [place] tablet 02 (two) Medical times Branch daily with meals. DOCOSAHEXAN 2017-03 Yes Take by Uni vers OIC 0-25 mouth ity of ACID/EPA 15:11: daily. [place] (FISH OIL 02 Medical ORAL) Branch Cinnamon [...] mg by ity of ORAL) 15:11: mouth. [place] Medical Branch Cholecalcif 2017-03 Yes Take by Uni vers brian, 0-25 mouth. ity of Vitamin D3, 15:11: [place] (VITAMIN 02 Medical D-3) 5,000 Branch unit [...] 0-25 mouth ity of ACID/EPA 15:11: daily. [place] (FISH OIL 02 Medical ORAL) Branch carvedilol [...] mg by ity of ORAL) 15:11: mouth. [place] 02 Medical Branch Cholecalcif 2017-03 Yes Take by Uni vers brian, 0-25 mouth. ity of Vitamin D3, 15:11: [place] (VITAMIN 02 Medical D-3) 5,000 Branch unit [...] ity of 5 mg tablet 15:11: every [place] 02 evening. Medical Branch ipratropium 2017-03 Yes 2{spray Use 2 Un hi 42 mcg 0-25 } Sprays in ity of (0.06 %) 15:11: each [place] nasal spray 02 nostril 4 Med ical (four) Branch times daily. DOCOSAHEXAN 2017-03 Yes Take by Uni vers OIC 0-25 mouth ity of ACID/EPA 15:11: daily. [place] (FISH OIL 02 Medical ORAL) Branch carvedilol 2017-03 Yes 3.125mg Take 3.125 Univers (COREG) 0-25 mg by ity of 3.125 mg 15:11: mouth 2 [place] tablet 02 (two) Medical times Branch daily with meals. DOCOSAHEXAN 2017-03 Yes Take by Uni vers OIC 0-25 mouth ity of ACID/EPA 15:11: daily. [place] (FISH OIL 02 Medical ORAL) Branch Cinnamon [...] mg by ity of ORAL) 15:11: mouth. [place] [address] Medical Branch Cholecalcif 2017-03 Yes Take by Uni vers brian, 0-25 mouth. ity of Vitamin D3, 15:11: [place] (VITAMIN 02 Medical D-3) 5,000 Branch unit Tab risedronate 2017-03 Yes 150mg Take 150 U nivers (ACTONEL) 0-25 mg by ity of 150 mg 15:11: mouth once [place] tablet 02 every Medical month. Branch FLUTICASONE [...] ity of 5 mg tablet 15:11: every [place] evening. Medical Branch ipratropium 2017-03 Yes 2{spray Use 2 Un hi 42 mcg 0-25 } Sprays in ity of (0.06 %) 15:11: each [place] nasal spray 02 nostril 4 Med ical (four) Branch times daily. UBIDECARENO 2017-03 Yes 100mg Take 100 U nivers NE (COQ-10 0-25 mg by ity of ORAL) 15:11: mouth. Medical Branch carvedilol 2017-03 Yes 3.125mg Take 3.125 Univers (COREG) 0-25 mg by ity of 3.125 mg 15:11: mouth 2 [place] tablet 02 (two) Medical times Branch daily with meals. DOCOSAHEXAN 2017-03 Yes Take by Uni vers OIC 0-25 mouth ity of ACID/EPA 15:11: daily. [place] (FISH OIL 02 Medical ORAL) Branch Cinnamon [...] mg by ity of ORAL) 15:11: mouth. [place] Medical Branch Cholecalcif 2017-03 Yes Take by Uni vers brian, 0-25 mouth. ity of Vitamin D3, 15:11: [place] (VITAMIN Medical D-3) 5,000 Branch unit Tab Cholecalcif 2017-03 Yes Take by Uni vers brian, 0-25 mouth. ity of Vitamin D3, 15:11: [place] (VITAMIN Medical D-3) 5,000 Branch unit Tab [...] times daily. FLUTICASONE 2017-03 Yes Use in Univ ers [...] 0-25 mouth ity of ACID/EPA 15:11: daily. [place] (FISH OIL 02 Medical ORAL) Branch Cinnamon [...] by ity of ORAL) 15:11: mouth. [place] Medical Branch Cholecalcif 2017-03 Yes Take by [...] ity of 5 mg tablet 15:11: every [place] 02 evening. Medical Branch ipratropium 2017-03 Yes 2{spray Use 2 Un hi 42 mcg 0-25 } Sprays in ity of (0.06 %) 15:11: each [place] nasal spray 02 nostril 4 Med ical (four) Branch times daily. carvedilol 2017-03 Yes 3.125mg Take 3.125 Univers (COREG) 0-25 mg by ity of 3.125 mg 15:11: mouth 2 [place] tablet 02 (two) Medical times Branch daily with meals. DOCOSAHEXAN 2017-03 Yes Take by Uni vers OIC 0-25 mouth ity of ACID/EPA 15:11: daily. [place] (FISH OIL 02 Medical ORAL) Branch Cinnamon [...] mg by ity of ORAL) 15:11: mouth. [place] [address] Medical Branch Cholecalcif 2017-03 Yes Take by Uni vers brian, 0-25 mouth. ity of Vitamin D3, 15:11: [place] (VITAMIN 02 Medical D-3) 5,000 Branch unit [...] in ity of (0.06 %) 15:11: each [place] nasal spray 02 nostril 4 Med ical (four) Branch times daily. levocetiriz 2017-03 Yes 5mg Take 5 mg U nivers ine (XYZAL) 0-25 by mouth ity of 5 mg tablet 15:11: every [place] 02 evening. Medical Branch ipratropium 2017-03 Yes 2{spray Use 2 Un hi 42 mcg 0-25 } Sprays in ity of (0.06 %) 15:11: each [place] nasal spray 02 nostril 4 Med ical [...] 0-25 mouth ity of ACID/EPA 15:11: daily. [place] (FISH OIL 02 Medical ORAL) Branch Cinnamon [...] mg by ity of ORAL) 15:11: mouth. [place] Medical Branch Cholecalcif 2017-03 Yes Take by Uni vers brian, 0-25 mouth. ity of Vitamin D3, 15:11: [place] (VITAMIN 02 [facility] D-3) 5,000 Branch unit Tab risedronate 2017-03 [...] by mouth ity of tablet 15:11: weekly. [place] Medical Branch furosemide 2017-03 Yes 20mg Take 20 mg U nivers 20 mg 0-25 by mouth ity of tablet 15:11: daily. [place] [address] Medical Branch losartan 25 2017-03 Yes 25mg Take 25 mg Univers mg tablet 0-25 by mouth ity of 15:11: daily. [place] Medical Branch amiodarone 2017-03 Yes 200mg Take [...] by mouth ity of tablet 15:11: weekly. [place] Medical Branch furosemide 2017-03 Yes 20mg Take [...] in ity of (SYSTANE 15:11: each eye BALANCE as needed. Medica l OPHTHALMIC) Branch biotin 2017-03 Yes 1{dose} Take 1 Univer s 1,000 mcg 0-25 Dose by ity of Chew 15:11: mouth [place] daily. Medical Branch alendronate 2017-03 Yes 70mg Take 70 mg [facility] 70 mg 0-25 by mouth ity of tablet 15:11: weekly. [place] [facility] Branch furosemide 2017-03 Yes 20mg Take 20 mg U nivers 20 mg 0-25 by mouth ity of tablet 15:11: daily. [place] [facility] Branch losartan 25 2017-03 Yes 25mg [...] bedtime. ity of Z) 0.004 % 15:11: [place] ophthalmic Medical solution Branch propylene 2017-03 Yes 1[drp] Place 1 Uni vers glycol 0-25 Drop in ity of (SYSTANE 15:11: each eye [facility] as needed. Medica l OPHTHALMIC) Branch biotin [...] by mouth ity of tablet 15:11: daily. [place] Medical Branch losartan 25 2017-03 Yes 25mg Take 25 mg Univers mg tablet 0-25 by mouth ity of 15:11: daily. Medical Branch amiodarone 2017-03 Yes 200mg Take 200 Un hi 200 mg 0-25 mg by ity of tablet 15:11: mouth [place] daily. Medical Branch rivaroxaban 2017-03 Yes Take [...] by mouth ity of tablet 15:11: weekly. [place] Medical Branch furosemide 2017-03 Yes 20mg Take 20 mg U nivers 20 mg 0-25 by mouth ity of tablet 15:11: daily. [place] [facility] Branch losartan 25 2017-03 Yes 25mg [...] ity of (SYSTANE 15:11: each eye [place] as needed. Medica l OPHTHALMIC) Branch biotin [...] by mouth ity of tablet 15:11: daily. [place] [facility] Branch losartan 25 2017-03 Yes 25mg Take 25 mg Univers mg tablet 0-25 by mouth ity of 15:11: daily. [place] [facility] Branch amiodarone 2017-03 Yes 200mg Take [...] bedtime. ity of Z) 0.004 % 15:11: [place] ophthalmic Medical solution Branch propylene 2017-03 Yes 1[drp] Place 1 Uni vers glycol 0-25 Drop in ity of (SYSTANE 15:11: each eye [facility] as needed. Medica l OPHTHALMIC) Branch biotin 2017-03 Yes 1{dose} Take 1 Univer s 1,000 mcg 0-25 Dose by ity of Chew 15:11: mouth daily. Medical Branch alendronate 2017-03 Yes 70mg Take 70 mg [facility] 70 mg 0-25 by mouth ity of tablet 15:11: weekly. [place] [facility] Branch furosemide 2017-03 Yes 20mg Take 20 mg U nivers 20 mg 0-25 by mouth ity of tablet 15:11: daily. [place] [facility] losartan 25 2017-03 Yes 25mg Take 25 mg [facility] mg tablet 0-25 by mouth ity of 15:11: daily. [place] [facility] Branch amiodarone 2017-03 Yes 200mg Take [...] 0-25 mouth ity of ACID/EPA 10:11: daily. [place] (FISH OIL 02 Medical ORAL) Branch Cinnamon [...] mg by ity of ORAL) 10:11: mouth. [place] [facility] Branch Cholecalcif 2017-03 Yes Take by Uni vers brian, 0-25 mouth. ity of Vitamin D3, 10:11: [place] (VITAMIN 02 Medical D-3) 5,000 Branch unit [...] ity of 5 mg tablet 10:11: every [place] 02 evening. Medical Branch ipratropium 2017-03 Yes 2{spray Use 2 Un hi 42 mcg 0-25 } Sprays in ity of (0.06 %) 10:11: each [place] nasal spray 02 nostril 4 Med ical (four) Branch times daily. carvedilol 2017-03 Yes 3.125mg Take 3.125 Univers (COREG) 0-25 mg by ity of 3.125 mg 10:11: mouth 2 [place] tablet 02 (two) Medical times Branch daily with meals. DOCOSAHEXAN 2017-03 Yes Take by Uni vers OIC 0-25 mouth ity of ACID/EPA 10:11: daily. [place] (FISH OIL 02 Medical ORAL) Branch Cinnamon [...] mg by ity of ORAL) 10:11: mouth. [place] [facility] Cholecalcif 2017-03 Yes Take by Uni vers brian, 0-25 mouth. ity of Vitamin D3, 10:11: [place] (VITAMIN Medical D-3) 5,000 Branch unit Tab [...] ity of 5 mg tablet 10:11: every [place] 02 evening. Medical Branch ipratropium 2017-03 Yes 2{spray Use 2 Un hi 42 mcg 0-25 } Sprays in ity of (0.06 %) 10:11: each [place] nasal spray 02 nostril 4 Med ical (four) Branch times daily. carvedilol 2017-03 Yes 3.125mg Take 3.125 Univers (COREG) 0-25 mg by ity of 3.125 mg 10:11: mouth 2 [place] tablet 02 (two) Medical times Branch daily with meals. DOCOSAHEXAN 2017-03 Yes Take by Uni vers OIC 0-25 mouth ity of ACID/EPA 10:11: daily. [place] (FISH OIL 02 Medical ORAL) Branch Cinnamon [...] 0-25 mouth ity of ACID/EPA 10:11: daily. [place] (FISH OIL 02 Medical ORAL) Branch Cinnamon [...] mg by ity of ORAL) 10:11: mouth. 02 Medical Branch Cholecalcif 2017-03 Yes Take by Uni vers brian, 0-25 mouth. ity of Vitamin D3, 10:11: [place] (VITAMIN Medical D-3) 5,000 Branch unit Tab [...] in ity of (0.06 %) 10:11: each [place] nasal spray 02 nostril 4 Med ical (four) Branch times daily. carvedilol 2017-03 Yes 3.125mg Take 3.125 Univers (COREG) 0-25 mg by ity of 3.125 mg 10:11: mouth 2 [place] tablet 02 (two) Medical times Branch daily with meals. DOCOSAHEXAN 2017-03 Yes Take by Uni vers OIC 0-25 mouth ity of ACID/EPA 10:11: daily. [place] (FISH OIL 02 Medical ORAL) Branch Cinnamon [...] mg by ity of ORAL) 10:11: mouth. [place] [facility] Cholecalcif 2017-03 Yes Take by Uni vers brian, 0-25 mouth. ity of Vitamin D3, 10:11: [place] (VITAMIN 02 Medical D-3) 5,000 Branch unit [...] in ity of (0.06 %) 10:11: each [place] nasal spray 02 nostril 4 Med ical (four) Branch times daily. carvedilol 2017-03 Yes 3.125mg Take 3.125 Univers (COREG) 0-25 mg by ity of 3.125 mg 10:11: mouth 2 [place] tablet 02 (two) Medical times Branch daily with meals. DOCOSAHEXAN 2017-03 Yes Take by Uni vers OIC 0-25 mouth ity of ACID/EPA 10:11: daily. [place] (FISH OIL 02 Medical ORAL) Branch Cinnamon [...] mg by ity of ORAL) 10:11: mouth. [place] [facility] Cholecalcif 2017-03 Yes Take by Uni vers brian, 0-25 mouth. ity of Vitamin D3, 10:11: [place] (VITAMIN 02 Medical D-3) 5,000 Branch unit [...] 0-25 mouth ity of ACID/EPA 10:11: daily. [place] (FISH OIL 02 Medical ORAL) Branch Cinnamon [...] mg by ity of ORAL) 10:11: mouth. [place] 02 Medical Branch Cholecalcif 2017-03 Yes Take by Uni vers brian, 0-25 mouth. ity of Vitamin D3, 10:11: [place] (VITAMIN 02 Medical D-3) 5,000 Branch unit [...] by mouth ity of tablet 10:11: daily. [place] [facility] losartan 25 2017-03 Yes 25mg Take 25 mg Univers mg tablet 0-25 by mouth ity of 10:11: daily. [place] [facility] amiodarone 2017-03 Yes 200mg Take [...] by mouth ity of tablet 10:11: daily. [place] [facility] losartan 25 2017-03 Yes 25mg Take 25 mg Univers mg tablet 0-25 by mouth ity of 10:11: daily. [place] [facility] amiodarone 2017-03 Yes 200mg Take [...] ity of (SYSTANE 10:11: each eye [place] as needed. Medica l OPHTHALMIC) Branch biotin [...] blood 2020-08-18 15:19:00 142 mm[Hg] Univer sity [facility] Diastolic blood 2020-08-18 15:19:00 74 mm[Hg] Unive rsity [facility] Heart rate 2020-08-18 15:11:00 61 /min [facility] Body weight 2020-08-18 15:11:00 74.844 kg [facility] BMI 2020-08-18 15:11:00 28.32 kg/m2 [facility] Systolic blood 2018-11-06 20:19:00 130 mm[Hg] Univer sity of [facility] Diastolic blood 2018-11-06 20:19:00 72 mm[Hg] Unive rsity of [facility] Heart rate 2018-11-06 20:19:00 70 /min [facility] Respiratory rate 2018-11-06 20:19:00 19 /min [facility] Body height 2018-11-06 20:19:00 162.6 cm [facility] Body weight 2018-11-06 20:19:00 78.926 kg [facility] BMI 2018-11-06 20:19:00 29.87 kg/m2 [facility] Oxygen saturation in 2018-11-06 20:19:00 96 /min [facility] Arterial blood by [facility] [place] Pulse oximetry Branch Procedures Procedure Date / Time Performing Clinician Source Performed EXTERNAL PROVIDER RECORDS 2021-07-02 05:01:00 Doctor Unassigned, [facility] [place] [facility] EXTERNAL PROVIDER RECORDS 2020-08-25 05:01:00 Doctor Unassigned, [facility] MEDICATION CORRESPONDENCE 2020-04-25 06:01:00 Doctor Unassigned, [facility] MEDICATION CORRESPONDENCE 2019-04-06 06:01:00 Doctor Unassigned, [facility] Plan of Care Planned Activity Planned Date Details Comments Source Future Scheduled 2022-09-21 COVID-19 VACCINE (#1) [facility] Test 21:55:11 [code = COVID-19 VACCINE (#1)] Future Scheduled 2022-09-21 SHINGLES VACCINES (1 [facility] Hospital Test 21:55:11 of 2) [code = SHINGLES VACCINES (1 of 2)] Future Scheduled 2022-09-21 65+ [facility] 21:55:11 VACCINE (1 - PCV) [code = 65+ PNEUMOCOCCAL VACCINE (1 - PCV)] Future Scheduled 2022-09-21 INFLUENZA VACCINE [facility] Test 21:55:11 [code = INFLUENZA VACCINE] Future Scheduled 2022-09-21 COVID-19 VACCINE (#1) [facility] Test 21:55:11 [code = COVID-19 VACCINE (#1)] Future Scheduled 2022-09-21 SHINGLES VACCINES (1 [facility] Hospital Test 21:55:11 of 2) [code = SHINGLES VACCINES (1 of 2)] Future Scheduled 2022-09-21 65+ [facility]UMOCOCCAL [facility] Test 21:55:11 VACCINE (1 - PCV) [code = 65+ PNEUMOCOCCAL VACCINE (1 - PCV)] Future Scheduled 2022-09-21 INFLUENZA VACCINE [facility] Hospital Test 21:55:11 [code = INFLUENZA VACCINE] Future Scheduled 2022-09-01 COVID-19 VACCINE (#1) [facility] Test 14:46:06 [code = COVID-19 VACCINE (#1)] Future Scheduled 2022-09-01 SHINGLES VACCINES (1 [facility] Test 14:46:06 of 2) [code = SHINGLES VACCINES (1 of 2)] Future Scheduled 2022-09-01 65+ PNEUMOCOCCAL [facility] Test 14:46:06 VACCINE (1 - PCV) [code = 65+ PNEUMOCOCCAL VACCINE (1 - PCV)] Future Scheduled 2022-09-01 INFLUENZA VACCINE [facility] Test 14:46:06 [code = INFLUENZA VACCINE] Future Scheduled 2022-06-16 COVID-19 VACCINE (#1) [facility] Test 17:18:41 [code = COVID-19 VACCINE (#1)] Future Scheduled 2022-06-16 SHINGLES VACCINES (1 [facility] Test 17:18:41 of 2) [code = SHINGLES VACCINES (1 of 2)] Future Scheduled 2022-06-16 65+ [facility]:18:41 VACCINE (1 - PCV) [code = 65+ PNEUMOCOCCAL VACCINE (1 - PCV)] Future Scheduled 2022-06-16 INFLUENZA VACCINE [facility] Test 17:18:41 [code = INFLUENZA VACCINE] Encounters Start End Encounter Admission Attending Care Care Encounter Source Date/Time Date/Time Type Type Clinicians Facility Department ID 2023-03-22 2023-03-22 Outpatient ANGELICA WALKER [id number] [facility] 09:30:00 09:30:00 04 praveen Velasquez 2023-03-22 2023-03-22 Outpatient AARON WALKER [id number] 09:30:00 09:30:00 04 praveen Velasquez 2022-09-21 2022-09-21 Outpatient AARON WALKER [id number] [facility] 09:30:00 09:30:00 03 praveen Velasquez 2022-09-21 2022-09-21 Outpatient AARON WALKER [id number] [facility] 09:30:00 09:30:00 03 praveen Velasquez 2022-03-23 2022-03-23 Outpatient MHIE MHIE [id number] [facility] 09:30:00 09:30:00 02 praveen Ron 2022-03-23 2022-03-23 Outpatient MHIE MHIE [id number] [facility] 09:30:00 09:30:00 02 praveen Ron 2021-09-15 2021-09-15 Outpatient MHIE MHIE [id number] [facility] 09:15:00 09:15:00 01 Ron 2021-09-15 2021-09-15 Outpatient MHIE MHIE [id number] [facility] 09:15:00 09:15:00 01 Garrett 2021-07-02 2021-07-02 Orders Doctor PING 1.2.840.114 [id number] Univers 00:00:00 00:00:00 Only Unassigned, NOAH [id number] [facility] [id number] Mike as [phone] [address] 2021-06-09 2021-06-09 Outpatient RAJINDER SINGH [facility] [id number] Univers 11:40:00 11:40:00 [facility] 2021-06-05 2021-06-05 Outpatient MHIE MHIE [id number] [facility] 14:00:00 14:00:00 00 praveen Velasquez 2021-06-05 2021-06-05 Outpatient MHIE MHIE [id number] [facility] 14:00:00 14:00:00 00 praveen Velasquez 2021-05-26 2021-05-26 Tree Sotelo [facility] 1.2.840.114 [id number] Univers 00:00:00 00:00:00 Rajinder HUI [id number] ity [facility] [id number] [phone] [place] dic[address] 2021-05-22 2021-05-22 Tree Sotelo [facility] 1.2.840.114 [id number] Univers 00:00:00 00:00:00 Rajinder HUI [id number] ity [facility] [id number] [phone] [place] dical NAL 2 [facility] 2021-05-18 2021-05-18 [facility] 1.2.840.114 [id number] Univers 00:00:00 00:00:00 Rajinder HUI [id number] ity of [id number] [phone] [place] dicct NAL [address] [place] [address] 2021-04-16 2021-04-16 [facility] 1.2.840.114 [id number] Univers 00:00:00 00:00:00 Rajinder HUI [id number] ity of [id number] [phone] [facility] NAL [address] [place] [address] 2021-01-22 2021-01-22 Refnini [facility] 1.2.840.114 [id number] Univers 00:00:00 00:00:00 Rajinder HUI [id number] ity of [id number] [phone] [place] dicct NAL [address] [place] [address] 2021-01-19 2021-01-19 [facility] 1.2.840.114 [id number] Univers 00:00:00 00:00:00 Rajinder HUI [id number] ity of [id number] [phone] [place] dicct NAL [address] [place] [address] 2020-10-08 2020-10-08 Chong Sotelo [facility] 1.2.840.114 [id number] Univers 00:00:00 00:00:00 Rajinder Hui [id number] [id number] [phone] [place] dical nal [address] [place] [address] 2020-10-06 2020-10-06 Refnini Sotelo [facility] 1.2.840.114 [id number] Univers 00:00:00 00:00:00 Rajinder Hui [id number] [place] of [id number] [phone] [facility] 2020-09-19 2020-09-19 Refill Deepak [facility] 1.2.840.114 [id number] Univers 00:00:00 00:00:00 Rajinder Hui [id number] [id number] [phone] [address] 2020-09-08 2020-09-08 [facility]phone [facility] 1.2.840.114 [id number] Univers 00:00:00 00:00:00 Rajinder Hui [id number] [id number] [phone] [address] 2020-08-25 2020-08-25 Orders Doctor PING 1.2.840.114 [id number] Univers 00:00:00 00:00:00 Only Unassigned, NOAH 350.1.13.10 ity of [place] [facility] [id number] [place] as [phone] [address] 2020-08-19 2020-08-19 Telephone Deepak [facility] 1.2.840.114 [id number] Univers 00:00:00 00:00:00 Rajinder Hui [id number] it[id number] [phone] [address] 2020-08-18 2020-08-18 Office Deepak [facility] 1.2.840.114 [id number] Univers 09:33:47 10:42:10 Visit Rajinder Hui [id number] [id number] [phone] [address] 2020-08-18 2020-08-18 Outpatient R RAJINDER SOTELO [facility] [id number] Univers 09:40:00 09:40:00 DEEPAK, RAJINDER iternestina of [facility] 2020-08-04 2020-08-04 Telephone Deepak [facility] 1.2.840.114 [id number] Univers 00:00:00 00:00:00 Rajinder Hui [id number] [id number] [phone] [address] 2020-07-09 2020-07-09 [facility] 1.2.840.114 [id number] Univers 00:00:00 00:00:00 Rajinder Hui [id number] [id number] [phone] [address] 2020-06-11 2020-06-11 [facility] 1.2.840.114 [id number] Univers 00:00:00 00:00:00 Rajinder Hui 350.1.13.10 ity [id number] [phone] [address] 2020-04-25 2020-04-25 Orders Doctor PING 1.2.840.114 [id number] Univers 00:00:00 00:00:00 Only Unassigned, NOAH 350.1.13.10 ity of [place] [facility] [id number] Mike as [phone] [address] 2020-04-24 2020-04-24 [facility] 1.2.840.114 [id number] Univers 00:00:00 00:00:00 Rajinder Hui [id number] [id number] [phone] [address] 2020-04-10 2020-04-10 [facility] 1.2.840.114 [id number] Univers 00:00:00 00:00:00 Rajinder Hui 350.1.13.10 [place] of [id number] [phone] [address] 2020-04-10 2020-04-10 Chong Sotelo [facility] 1.2.840.114 [id number] Univers 00:00:00 00:00:00 Rajinder Sanjeev Korina 350.1.13.10 [id number] [phone] [address] 2019-12-06 2019-12-06 RefPING Fu 1.2.840.114 [id number] Univers 00:00:00 00:00:00 Rajinder HIGHY 350.1.13.10 ity of [facility] [id number] [place] as [phone] [address] 2019-10-31 2019-10-31 [facility]ini [facility] 1.2.840.114 [id number] Univers 00:00:00 00:00:00 Rajinder Hui [id number] ity of [id number] [phone] [address] 2019-08-10 2019-08-10 Tree Sotelo [facility] 1.2.840.114 [id number] Univers 00:00:00 00:00:00 Rajinder Hui 350.1.13.10 ity of [id number] [phone] [address] 2019-06-12 2019-06-12 Telemedici [facility] 1.2.840.114 [id number] Univers 10:03:40 10:23:40 ne Visit Rajinder Hui 350.1.13.10 ity of [id number] [phone] [address] 2019-06-12 2019-06-12 Outpatient R RAJINDER SOTELO [facility] [id number] Univers 09:40:00 09:40:00 DEEPAKRAJINDER De La Cruz ity of [facility] 2019-04-06 2019-04-06 Orders Doctor PING 1.2.840.114 [id number] Univers 00:00:00 00:00:00 Only Unassigned, NOAH 350.1.13.10 ity of [place] [facility] [id number] Mike as [phone] [address] 2019-04-06 2019-04-06 Refill Deepak [facility] 1.2.840.114 [id number] [facility] 00:00:00 00:00:00 Rajinder Hui 350.1.13.10 [id number] [phone] [place] 489582 [facility] 2018-11-06 2018-11-06 Office Deepak [facility] 1.2.840.114 [id number] [facility] 15:14:30 16:08:01 Visit Rajinder Hui 350.1.13.10 it[place] of [id number] [phone] [place] 489582 [facility] Results This patient has no known results.
[2022-09-30 12:50] VITALS: BMI 28.5
[2022-09-30] MEDS: NA CHLORIDE 0.9% 1,000 ML IV SCH (13:00)
[2022-09-30] MEDS ORDERED: DOCUSATE NA/SENNA CONC 1 TAB PO PRN (13:12)
[2022-09-30] MEDS ORDERED: CETIRIZINE 10 MG PO PRN (13:16)
[2022-09-30] MEDS ORDERED: BISACODYL 10 MG RECTAL SUPP PR PRN (13:16)
[2022-09-30] MEDS ORDERED: MAGNES/ALUMIN/SIMET 30ML UCUP PO PRN (13:18)
[2022-09-30] MEDS ORDERED: MELATONIN 3 MG TABLET PO PRN (13:18)
[2022-09-30] MEDS ORDERED: MAGNESIUM HYDROXIDE 8% 30 ML PO PRN (13:20)
[2022-09-30] MEDS ORDERED: ONDANSETRON 4 MG (ODT) TAB PO PRN (13:22)
[2022-09-30] MEDS: TRAMADOL HCL 50 MG TAB PO SCH ×2 (15:15→22:08)
[2022-09-30] MEDS: ACETAMINOPHEN 500 MG TAB PO SCH ×2 (15:15→22:08)
[2022-09-30] MEDS: FENOFIBRATE 160 MG PO SCH (17:24)
[2022-09-30] MEDS: XARELTO 20 MG PO SCH (17:24)
[2022-09-30] MEDS: PREGABALIN 150 MG PO SCH (21:00)
[2022-09-30] MEDS ORDERED: PREGABALIN 150 MG PO SCH (21:00)
[2022-09-30] MEDS: FLONASE 50 MCG NAS SCH (22:00)
[2022-09-30] MEDS: DOFETILIDE 250 MG PO SCH (22:01)
[2022-09-30] MEDS: [UNRECOGNIZED DRUG - OTHER] OPTH SCH (22:01)
[2022-09-30] MEDS: MAGNESIUM 250 MG PO SCH (22:02)
[2022-09-30] MEDS: TAMSULOSIN 0.4 MG SR CAP PO SCH (22:08)
[2022-09-30] MEDS: CRANBERRY FRUIT EXTRACT 200 MG CAP PO SCH (22:08)
[2022-09-30] MEDS: CEFTRIAXONE 1,000 MG in NA CHLORIDE 0.9% 50 ML IVPB SCH (22:08)
[2022-09-30] MEDS: ENSURE ENLIVE 237 ML CAN PO SCH (22:09)
[2022-10-01] MEDS: NA CHLORIDE 0.9% 1,000 ML IV SCH ×3 (04:23→13:35)
[2022-10-01] MEDS ORDERED: LEVOTHYROXINE PO SCH (06:30)
[2022-10-01 06:54] LABS: Absolute Lymphocytes (CBC) 1.1 K/uL (0.7-4.9); Hematocrit 36.4 % (36.0-45.0); Lymphocytes % 9.4 % (15.3-44.8); MCV 87.5 fL (80-100); MPV 8.5 fL (7.6-11.3); RBC Red Blood Cell Count 4.15 M/uL (3.86-4.86)
[2022-10-01 07:13] LABS: Albumin 2.9 g/dL (3.4-5.0); Bilirubin Total 0.5 mg/dL (0.2-1.0); Potassium 4.2 mEq/L (3.5-5.1); Protein, Total 6.7 g/dL (6.4-8.2)
[2022-10-01] MEDS: TRAMADOL HCL 50 MG TAB PO SCH (08:43)
[2022-10-01] MEDS: ACETAMINOPHEN 500 MG TAB PO SCH ×3 (08:44→21:03)
[2022-10-01] MEDS: ENSURE ENLIVE 237 ML CAN PO SCH ×2 (08:44→21:05)
[2022-10-01] MEDS: CEFTRIAXONE 1,000 MG in NA CHLORIDE 0.9% 50 ML IVPB SCH ×2 (08:44→21:04)
[2022-10-01] MEDS: CRANBERRY FRUIT EXTRACT 200 MG CAP PO SCH ×2 (08:44→21:03)
[2022-10-01] MEDS: LIDOCAINE 4% PATCH TOP SCH (08:45)
[2022-10-01] MEDS: MAGNESIUM 250 MG PO SCH ×2 (08:46→21:04)
[2022-10-01] MEDS: AMLODIPINE 2.5 MG TABLET PO SCH (08:47)
[2022-10-01] MEDS: DOFETILIDE 250 MG PO SCH ×2 (08:48→21:04)
[2022-10-01] MEDS: LEVOTHYROXINE PO SCH (08:49)
[2022-10-01] MEDS: VITAMIN D3 PO SCH (08:49)
[2022-10-01] MEDS: POTASSIUM CHLORIDE 20 MEQ PO SCH (08:49)
[2022-10-01] MEDS: FLONASE 50 MCG NAS SCH ×3 (08:50→21:04)
[2022-10-01] MEDS ORDERED: AMLODIPINE 5 MG TAB PO SCH (09:00)
[2022-10-01] MEDS ORDERED: POTASSIUM CHLORIDE 20 MEQ PO SCH (09:00)
[2022-10-01] MEDS: PREGABALIN 150 MG PO SCH ×2 (09:43→21:03)
[2022-10-01] MEDS: XARELTO 20 MG PO SCH (17:20)
[2022-10-01] MEDS: FENOFIBRATE 160 MG PO SCH (17:20)
[2022-10-01] MEDS: TAMSULOSIN 0.4 MG SR CAP PO SCH (21:03)
[2022-10-01] MEDS: [UNRECOGNIZED DRUG - OTHER] OPTH SCH (21:04)
[2022-10-02] MEDS: NA CHLORIDE 0.9% 1,000 ML IV SCH ×4 (01:46→20:21)
[2022-10-02] MEDS: TRAMADOL HCL 50 MG TAB PO PRN ×3 (01:54→17:30)
[2022-10-02 05:47] LABS: Absolute Lymphocytes (CBC) 1.3 K/uL (0.7-4.9); MCV 87.5 fL (80-100); MPV 8.3 fL (7.6-11.3); RBC Red Blood Cell Count 3.54 M/uL (3.86-4.86)
[2022-10-02 06:00] LABS: Magnesium 1.9 mg/dL (1.6-2.4); Potassium 3.6 mEq/L (3.5-5.1)
[2022-10-02] MEDS: LEVOTHYROXINE PO SCH (07:19)
[2022-10-02] MEDS: ENSURE ENLIVE 237 ML CAN PO SCH ×2 (08:26→20:05)
[2022-10-02] MEDS: CRANBERRY FRUIT EXTRACT 200 MG CAP PO SCH ×2 (08:27→20:03)
[2022-10-02] MEDS: ACETAMINOPHEN 500 MG TAB PO SCH ×3 (08:28→20:17)
[2022-10-02] MEDS: AMLODIPINE 2.5 MG TABLET PO SCH (08:29)
[2022-10-02] MEDS: PREGABALIN 150 MG PO SCH ×2 (08:29→20:08)
[2022-10-02] MEDS: POTASSIUM CHLORIDE 20 MEQ PO SCH (08:29)
[2022-10-02] MEDS: DOFETILIDE 250 MG PO SCH ×2 (08:41→20:07)
[2022-10-02] MEDS: FLONASE 50 MCG NAS SCH ×2 (08:41→20:07)
[2022-10-02] MEDS: CEFTRIAXONE 1,000 MG in NA CHLORIDE 0.9% 50 ML IVPB SCH ×2 (08:41→20:03)
[2022-10-02] MEDS: VITAMIN D3 PO SCH (08:42)
[2022-10-02] MEDS: MAGNESIUM 250 MG PO SCH ×2 (08:42→20:07)
[2022-10-02] MEDS: LIDOCAINE 4% PATCH TOP SCH (08:47)
--- NOTE | 2022-10-02 10:18 | HP ---
Date of Admission: 09/30/2022 Chief Complaint: Weakness. History Of Present Illness: This is an 86-year-old very pleasant female patient, who was admitted to inpatient rehab floor after she fell down and was evaluated in ER and was diagnosed as having sacral fracture. Patient was admitted to rehab floor and she did not progress on the rehab floor as well as expected and was not able to participate in the rehab therapy in order for her to continue to stay and receive inpatient rehab benefit. So, Rehab Floor decided that since patient is no longer able to stay there, they recommended group home facility placement to the patient and the family and today, patient was going to be discharged from rehab floor to go to rather to group home facility, but her condition had worsened and she was brought to medical floor. She had her labs done this morning, which showed acute kidney injury with hypercalcemia with calcium level of 13. Patient is very weak and lethargic appearing. She has had some confusion and hallucinations. She also has had some urinary retention on the rehab floor and she has been able to empty her bladder using bedside commode and her urine culture result came back today growing E coli. It is sensitive to all different multiple antibiotics. After I saw her today on the rehab floor, I did communicate with the patient's son and daughter, they both were present at bedside and blood work result was pending at that time and once the lab result was available, I did communicate with the patient's daughter and explained details regarding the results and plan of treatment was to transfer her from inpatient rehab to medical floor for further management. Allergies: 1. DEMEROL CAUSING ITCHING. 2. ZETIA AND COMPAZINE CAUSE UNCONTROLLABLE HEAD MOVEMENT. Medications: At home, she takes: 1. Alendronate 70 mg once a week. 2. Amlodipine 2.5 mg daily in morning. 3. Dofetilide 250 mg two times a day. 4. Fenofibrate 160 mg daily. 5. Fluticasone nasal spray 1 spray each nostril two times a day. 6. Xyzal 5 mg daily as needed for allergies. 7. Levothyroxine 88 mcg daily. 8. Trileptal 150 mg two times a day. 9. Magnesium oxide 400 mg two times a day. 10. Potassium chloride 20 mEq daily. 11. Lyrica 50 mg three times a day. 12. Xarelto 20 mg daily in the evening. 13. Travatan eyedrops, one drop both eyes daily. Review of Systems: Musculoskeletal: As mentioned above. Constitutional: As mentioned above. All other systems reviewed are negative. Past Medical History: 1. Hypothyroidism. 2. Impaired fasting glucose. 3. Pulmonary hypertension. 4. Hyperlipidemia, which is mixed. 5. Chronic atrial fibrillation. 6. Hypertension. 7. Diverticulosis. 8. Osteopenia. Past Surgical History: Removal of ovarian cyst and knee surgery. Family History: Father , details unknown. Mother , had gallbladder disease and after surgery she had complications and from it. Brother ,details unknown. Sister with liver cancer and breast cancer. Social History: Negative for smoking and alcohol use. Physical Examination: Vital Signs: Temperature 97.8, pulse 76, respiratory rate 16, blood pressure 119/60, oxygen saturation 93% on room air. Height is 5 feet 4 inches, weight 186 pounds. General: The patient appears very weak and lethargic looking, wakes up, but then goes right back to sleep, not in any distress. HEENT: Head; atraumatic, normocephalic. Conjunctivae nonerythematous. Sclerae white. Mouth, no thrush or edema noted. Ears/Nose, no mass, lesion, discharge noted. Neck: Supple. No JVD, lymph nodes, bruit, thyromegaly noted. Lungs: Bilateral good equal air entry. Clear to auscultation. No rhonchi. No rales. Heart: Normal heart sounds, no murmur or gallop. Abdomen: Soft, bowel sounds normal. No guarding, rigidity, tenderness, mass, hepatosplenomegaly, distention, or bruit noted. Extremities: No leg edema. No calf tenderness. Skin: No rash, ulcer, cellulitis. Lymphatics: No lymph node enlargement in neck, supraclavicular, infraclavicular region. Neuro: No focal neurological deficit. Chest: Unremarkable. External Genitalia: Deferred. Rectal: Deferred. Laboratory Data: Sodium 138, potassium 4.3, chloride 102, bicarb 36, BUN 54, creatinine 0.97, glucose 115, calcium 13, albumin 3. Urine culture growing E coli and it is sensitive to all the antibiotics was tested for. White count 9.2, hemoglobin 12, platelets 303. Impression: 1. Acute kidney injury. 2. Hypercalcemia. 3. Volume depletion. 4. Urinary retention. 5. Urinary tract infection. 6. Fracture of S1 and S2 sacral ala. 7. Fracture of transverse process of L5. 8. Osteoporosis. 9. Chronic anticoagulation therapy. 10. Chronic atrial fibrillation. 11. Hypertension. 12. Mixed hyperlipidemia. 13. Hypothyroidism. 14. Impaired fasting glucose. 15. Diverticulosis. 16. Osteoarthritis, multiple sites. 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 Plan: We will go ahead and admit the patient to hospital for further evaluation and management of this problem. Patient is appropriate for inpatient and is expected to spend 2 midnights in hospital. We will give IV fluid per order using normal saline at 100 mL/hour. Culture specific antibiotic will be started using ceftriaxone per order. We will monitor her for urinary retention and provide necessary intervention at that time. For her atrial fibrillation, continue her antiarrhythmic medication and continue her anticoagulation therapy per order. Blood pressure will be monitored and continue antihypertensive medication per order. Make necessary adjustment as it becomes necessary. Patient does need pain medication for her fracture of the sacrum and we will continue tramadol and Tylenol per order at this time. Consult Physical Therapy. I did communicate with doctor regarding advance directives as well and at this point, there is no decision made yet, so patient remains full code. Daughter was encouraged to communicate with me as soon as the decision is made if it is any different. When patient's condition gets stabilized, then plan will be to discharge her to go to group home facility. ROULA/HARLEY Voice ID: [id number] MTDD
--- NOTE | 2022-10-02 12:09 | PN ---
Date of Progress Note: 10/01/2022 Subjective: The patient was seen this morning for followup. No new complaints or problems reported by the patient. Lying in bed, not in any distress. When I entered her room, she was moving her hand s and talking softly as she was hallucinating and confused, and after I was standing in the room for about maybe 30 to 60 seconds, she recognized I was standing next to her at the bedside and then she s tarted talking to me, but still somewhat confused. Appears weaker than normal, but little better tod ay than yesterday. Not in any respiratory distress. Objective: Vital Signs: Reviewed. HEENT: Unremarkable. Lungs: Clear to auscultation. Heart: Sounds normal. Abdomen: Soft. Bowel sounds normal. No guarding, rigidity, distention, but the patient was noted t o have distended bladder on physical exam. Extremities: No leg edema. Laboratory Data: White count 11.9, hemoglobin 11.6, platelets 318. Sodium 139, potassium 4.2, chlor camille 106, bicarb 31, BUN 50, creatinine 1, glucose 115, calcium 11.7. Impression: 1.Hypercalcemia. 2.Volume depletion. 3.Acute kidney injury. 4.Urinary tract infection. 5.Urinary retention. Plan: We will continue current antibiotics, continue IV fluid. We will repeat blood work tomorrow m orning and after I examined the patient, it was determined that the patient had distended bladder. Shanda agrawal was advised to do a bladder scan, which came back more than 999 cc of urine and the patient was assisted to get on the bedside commode to see if she can empty her bladder and she voided about 250 c c of urine and she was placed back in the bed and repeat bladder scan still continued to show more th an 999 cc of urine. So at that time, decision was made to put a [place] catheter. Nurse contacted me and informed me that approximately 1800 cc of urine was obtained, which was foul smelling and strong leaking urine and we will right now keep the [place] catheter in place. I will see her tomorrow for fo llowup. I did call the patient's daughter and communicated all these details with her today. ROULA/MODL Voice ID: [id number] Report ID: [id number]
--- NOTE | 2022-10-02 12:33 | PN ---
Date of Progress Note: 10/02/2022 Subjective: The patient was seen this morning for followup. She was lot better this morning compare d to last few days. When I walked in, she was working on her phone. She is awake, alert, answering questions more appropriately today, still not back to her normal self, but a lot better. Denies any new complaints. Objective: Vital Signs: Reviewed. HEENT: Unremarkable. Lungs: Clear to auscultation. Heart: Sounds normal. Abdomen: Soft. Bowel sounds normal. No guarding, rigidity, tenderness, distention. Extremities: No leg edema. Laboratory Data: White count 8.4, hemoglobin 10.1, platelets 291. Sodium 144, potassium 3.6, chlori de 112, bicarb 31, BUN 32, creatinine 0.65, glucose 99, magnesium 1.9, calcium level 10.7. Impression: 1.Urinary retention. 2.Urinary tract infection. 3.Volume depletion. 4.Hypercalcemia. 5.Acute kidney injury. Plan: We will go ahead and continue IV fluid, but reduce rate to 50 cc/hour, continue current antibi otics. We will repeat blood work tomorrow morning and as of yesterday, I have changed her tramadol t o be given on a p.r.n. basis, but we will continue Tylenol per order. The patient will be ready for discharge to go to halfway facility and I have asked nurse to check to see if halfway facility will be willing to accept her tomorrow and if not, then we will wait until the day after to [place]. I did call and discussed all the details with the daughter. For her urinary retention, the patient will require some bladder training and then attempt should be made for removal of [place] catheter. This can be provided at the halfway facility. ROULA/MODL Voice ID: [id number] Report ID: [id number]
[2022-10-02] MEDS: FENOFIBRATE 160 MG PO SCH (17:19)
[2022-10-02] MEDS: XARELTO 20 MG PO SCH (17:19)
[2022-10-02] MEDS: TAMSULOSIN 0.4 MG SR CAP PO SCH (20:03)
[2022-10-02] MEDS: [UNRECOGNIZED DRUG - OTHER] OPTH SCH (20:06)
[2022-10-03] MEDS: TRAMADOL HCL 50 MG TAB PO PRN ×2 (01:18→09:41)
[2022-10-03] MEDS: LEVOTHYROXINE PO SCH (06:09)
[2022-10-03] MEDS: NA CHLORIDE 0.9% 1,000 ML IV SCH (06:21)
[2022-10-03 07:46] LABS: Potassium 3.5 mEq/L (3.5-5.1)
[2022-10-03] MEDS: LIDOCAINE 4% PATCH TOP SCH (10:49)
[2022-10-03] MEDS: CRANBERRY FRUIT EXTRACT 200 MG CAP PO SCH ×2 (10:50→21:01)
[2022-10-03] MEDS: DOFETILIDE 250 MG PO SCH ×2 (10:50→21:02)
[2022-10-03] MEDS: ENSURE ENLIVE 237 ML CAN PO SCH ×2 (10:52→21:00)
[2022-10-03] MEDS: MAGNESIUM 250 MG PO SCH ×2 (10:53→21:03)
[2022-10-03] MEDS: FLONASE 50 MCG NAS SCH ×2 (10:53→21:03)
[2022-10-03] MEDS: AMLODIPINE 2.5 MG TABLET PO SCH (10:53)
[2022-10-03] MEDS: CEFTRIAXONE 1,000 MG in NA CHLORIDE 0.9% 50 ML IVPB SCH ×2 (10:54→21:03)
[2022-10-03] MEDS: POTASSIUM CHLORIDE 20 MEQ PO SCH (10:54)
[2022-10-03] MEDS: PREGABALIN 150 MG PO SCH ×2 (10:54→21:00)
[2022-10-03] MEDS: ACETAMINOPHEN 500 MG TAB PO SCH ×3 (10:55→21:02)
[2022-10-03] MEDS: VITAMIN D3 PO SCH (10:56)
[2022-10-03] MEDS: XARELTO 20 MG PO SCH (10:56)
--- NOTE | 2022-10-03 14:58 | PN ---
Date of Progress Note: 10/03/2022 Subjective: The patient was seen this morning for followup. She was awake, alert, communicating, lot better today. Denies any new complaints this morning. Not in any respiratory distress. Objective: Vital Signs: Reviewed. HEENT: Unremarkable. Lungs: Clear to auscultation. Heart: Sounds normal. Abdomen: Soft. Bowel sounds normal. No guarding, rigidity, tenderness, distention. Extremity: No leg edema. Skin: There is no evidence of any decubitus ulcers anywhere on her heels and her buttocks. Skin was also examined. There is a small area on the left buttock where it appears that she probably had multiple small superficial cluster of blisters in about 1-2 cm distribution and this appears to be healing, so no need for further intervention and this is likely due to herpes simplex infection and no need for further intervention at this time since it is already improving on its own, but no evidence of any decubitus. Laboratory Data: Sodium 141, potassium 3.5, chloride 109, bicarb 31, BUN 21, creatinine 0.56, glucose 103, calcium level 9.8. Impression: 1. Acute kidney injury. 2. Urinary tract infection. 3. Urinary retention. 4. Hypercalcemia. Plan: We will go ahead and continue current medications, continue current antibiotics. We will discontinue IV fluid today. The patient was encouraged to drink about 60 ounces of water daily. Teresa catheter is draining clear yellow urine and we are waiting for retirement facility to re-evaluate her tomorrow and once they accept her, we will plan to discharge her. Medically, she is stable for discharge now soon a retirement facility accepts her. I did call the patient's daughter and discussed details today with her. Discharge medications and instruction: 1. Alendronate 70 mg once a week to be taken on empty stomach with 8 oz water and patient to stay upright in sitting position for 60 minutes after taking this medicine and do not eat/drink anything for 60 minutes after taking this medicine. 2. Amlodipine 2.5 mg by mouth daily in morning. 3. Dofetilide 250 mg by mouth two times a day. 4. Fenofibrate 160 mg by mouth daily. 5. Fluticasone nasal spray 1 spray each nostril two times a day. 6. Xyzal 5 mg by mouth daily as needed for allergies. 7. Levothyroxine 88 mcg by mouth daily. 8. Trileptal 150 mg by mouth two times a day. 9. Magnesium oxide 400 mg by mouth two times a day. 10. Potassium chloride 20 mEq by mouth daily. 11. Lyrica 50 mg by mouth three times a day. 12. Xarelto 20 mg by mouth daily in the evening. 13. Travatan eyedrops, one drop both eyes daily. 14. Tylenol 500 mg by mouth three times a day. 15. Tramadol 50 mg by mouth three times a day. 16. Teresa catheter care and bladder training program with trial to remove teresa catheter in one to two weeks. 17. Fall precautions. 18. Consult PT and OT. 19. Diet: 2 gm sodium 20. Labs: CBC, Chem 7 in one week 21. Ampicillin 500 mg by mouth three times a day for five days. 22. Senokot-S, take 2 tablets by mouth daily. 23. MOM 30 cc by mouth daily as needed for constipation. 24. Ensure 237 ml by mouth two times a day. ROULA/MODL Voice ID: [id number] Report ID: [id number] [facility]
[2022-10-03] MEDS: TRAMADOL HCL 50 MG TAB PO SCH ×2 (18:00→21:01)
[2022-10-03] MEDS: FENOFIBRATE 160 MG PO SCH (18:01)
[2022-10-03] MEDS: TAMSULOSIN 0.4 MG SR CAP PO SCH (21:00)
[2022-10-03] MEDS: [UNRECOGNIZED DRUG - OTHER] OPTH SCH (21:02)
[2022-10-04] MEDS: NA CHLORIDE 0.9% 1,000 ML IV SCH ×2 (03:00→05:55)
[2022-10-04] MEDS: LEVOTHYROXINE PO SCH (05:53)
[2022-10-04 08:18] LABS: Absolute Lymphocytes (CBC) 1.2 K/uL (0.7-4.9); MCV 85.7 fL (80-100); MPV 7.9 fL (7.6-11.3); RBC Red Blood Cell Count 3.97 M/uL (3.86-4.86)
[2022-10-04 08:31] LABS: Magnesium 2.1 mg/dL (1.6-2.4); Potassium 3.2 mEq/L (3.5-5.1)
[2022-10-04] MEDS ORDERED: POTASSIUM CL SA 10 MEQ TAB PO ONE (08:46)
[2022-10-04 08:54] VITALS: TEMP 97.3
[2022-10-04] MEDS: CEFTRIAXONE 1,000 MG in NA CHLORIDE 0.9% 50 ML IVPB SCH (09:59)
[2022-10-04] MEDS: TRAMADOL HCL 50 MG TAB PO SCH ×2 (10:00→14:42)
[2022-10-04] MEDS: ACETAMINOPHEN 500 MG TAB PO SCH ×2 (10:01→14:42)
[2022-10-04] MEDS: CRANBERRY FRUIT EXTRACT 200 MG CAP PO SCH (10:01)
[2022-10-04] MEDS: LIDOCAINE 4% PATCH TOP SCH (10:02)
[2022-10-04] MEDS: ENSURE ENLIVE 237 ML CAN PO SCH (10:03)
[2022-10-04] MEDS: DOFETILIDE 250 MG PO SCH (10:04)
[2022-10-04] MEDS: AMLODIPINE 2.5 MG TABLET PO SCH (10:05)
[2022-10-04] MEDS: FLONASE 50 MCG NAS SCH (10:06)
[2022-10-04] MEDS: MAGNESIUM 250 MG PO SCH (10:06)
[2022-10-04] MEDS: POTASSIUM CHLORIDE 20 MEQ PO SCH (10:07)
[2022-10-04] MEDS: VITAMIN D3 PO SCH (10:09)
[2022-10-04] MEDS: PREGABALIN 150 MG PO SCH (10:37)
[2022-10-04 15:10] LABS: Alpha-1-Globulins 0.5 g/dL (0.2-0.3); Alpha-2-Globulins 0.9 g/dL (0.5-0.9); Gamma Globulins 0.7 g/dL (0.8-1.7); INTERPRETATION REPORT
[2022-10-04 16:38] VITALS: O2SAT 95
[2022-10-04 16:55] VITALS: BP 170/69
[2022-10-04] MEDS: FENOFIBRATE 160 MG PO SCH (17:14)
[2022-10-04] MEDS: XARELTO 20 MG PO SCH (17:14)
--- NOTE | 2022-10-05 08:00 | DS ---
Date of Discharge: 10/04/2022 Disposition: Discharged to go to group home facility. Physical Examination: HEENT: Unremarkable. Lungs: Clear to auscultation. Heart: Sounds normal. Abdomen: Soft. Bowel sounds normal. No guarding, rigidity, tenderness, distention. Extremities: No leg edema. Laboratory Data: Upon admission on 10/01/2022; WBC count 11.9, hemoglobin 11.6, platelets 318. Init ial calcium was 13 on the day of admission and on 10/01 which is day after admission, calcium level c dane down to 11.7, BUN 50, creatinine 1. Yesterday; calcium level was normal at 9.8, BUN 21, creatini ne 0.56. Today, CBC and chem-7 results also reviewed and calcium level is normal. Discharge Medications And Instructions: 1.Alendronate 70 mg once a week to be taken on an empty stomach with 8 ounces water and the patient to stay upright in sitting position for 60 minutes after taking the medication and do not eat or drin k for 60 minutes after taking the medication. 2.Amlodipine 5 mg daily in the morning. 3.Dofetilide 250 mg 2 times a day. 4.Fenofibrate 160 mg daily. 5.Fluticasone nasal spray 1 spray each nostril 2 times a day. 6.Xyzal 5 mg daily as needed for allergies. 7.Levothyroxine 88 mcg daily. 8.Trileptal 150 mg 2 times a day. 9.Magnesium oxide 400 mg 2 times a day. 10.Potassium chloride 20 mEq daily. 11.Lyrica 50 mg 3 times a day. 12.Xarelto 20 mg daily in the evening. 13.Travatan eye drops, 1 drop both eyes daily. 14.Tylenol 500 mg 3 times a day. 15.Tramadol 50 mg 3 times a day. 16.[place] catheter care and bladder training program with trial to remove [place] catheter in 1-2 weeks . 17.Fall precautions. 18.Consult Physical Therapy and Occupational Therapy. 19.Diet, 2 g sodium diet. 20.Lab CBC, chem 7 in 1 week. 21.Ampicillin 500 mg 3 times a day for 5 days. 22.Senokot-S 2 tablets by mouth daily. 23.Milk of magnesia 30 cc by mouth daily as needed for constipation. 24.Ensure 230 cc by mouth 2 times a day. Hospital Course: An 86-year-old very pleasant female patient, who was on the rehab floor for sacral fracture, was transferred from rehab to inpatient medical floor with abnormal blood tests and signifi cant generalized weakness. The patient had acute kidney injury, BUN 54, creatinine 0.97, and serum c alcium level of 13. Urinalysis done and urine culture done on the rehab floor had grown E coli and w as sensitive to multiple different antibiotics. The patient was brought from rehab floor to medical floor. IV fluid was started and her serum calcium level normalized along with normalization of kidne y function. The patient has had urinary retention on the rehab floor, which she was able to empty he r bladder by using bedside commode, but here on the medical floor we noted that she had significant a mount of urinary retention in spite of voiding on her own. She was still retaining more than 1000 cc of urine as a postvoid residual. So at that time, we decided to put a [place] catheter and we obtaine d approximately 1800 cc of foul-smelling urine after she was able to void only about 250 cc. So at t his time, we have decided to leave the [place] catheter in place and we should be able to remove it in the near future with some bladder training program. The patient has shown some signs of confusion du ring this hospitalization and even today when I saw her, she has shown some signs of confusion even t bess overall her mental status is better, but there are some periods of confusion that we still noti cing and I suspect that this is due to some underlying dementia problem. The patient is not able to go to inpatient rehab because she is not going to be able to do 3 hours of intense rehab therapy on a daily basis, so a group home facility placement was suggested to family member and once all the se arrangements completed today, the patient was discharged to skilled facility in a stable condition . Her blood pressure was high, so we started her on amlodipine and today I have increased dose to 5 mg daily from 2.5 mg daily. Final Diagnoses: 1.Acute kidney injury. 2.Hypercalcemia. 3.Volume depletion. 4.Urinary tract infection. 5.Urinary retention. 6.Fracture of S1 and S2 sacral ala. 7.Fracture of transverse process of L5. 8.Osteoporosis. 9.Chronic anticoagulation therapy. 10.Chronic atrial fibrillation. 11.Senile dementia. 12.Hypertension. 13.Mixed hyperlipidemia. 14.Hypothyroidism. 15.Impaired fasting glucose. 16.Diverticulosis. 17.Osteoarthritis, multiple sites. ROULA/MODL Voice ID: [id number] Report ID: [id number]
== END 2022-10-04 17:52 | DRG 682 ==
LOC: 4TH 12:06
PROVIDERS: ADMIT Internal Medicine; ATTEND Internal Medicine
DX: N17.9 Acute kidney failure, unspecified (principal); G92.9 Unspecified toxic encephalopathy; S34.105A Unspecified injury to L5 level of lumbar spinal cord, initial encounter; S32.19XA Other fracture of sacrum, initial encounter for closed fracture; I48.20 Chronic atrial fibrillation, unspecified; N39.0 Urinary tract infection, site not specified; E83.52 Hypercalcemia; E03.9 Hypothyroidism, unspecified; I10 Essential (primary) hypertension; E86.9 Volume depletion, unspecified; M81.0 Age-related osteoporosis without current pathological fracture; E78.2 Mixed hyperlipidemia; K57.90 Diverticulosis of intestine, part unspecified, without perforation or abscess without bleeding; M19.09 Primary osteoarthritis, other specified site; B96.20 Unspecified Escherichia coli [E. coli] as the cause of diseases classified elsewhere; R73.01 Impaired fasting glucose; R33.9 Retention of urine, unspecified; Z88.5 Allergy status to narcotic agent; Z88.8 Allergy status to other drugs, medicaments and biological substances; Z79.01 Long term (current) use of anticoagulants; Z79.899 Other long term (current) drug therapy; Z79.890 Hormone replacement therapy
CPT/HCPCS: 36415; 80048; 80053; 83735; 83970; 84165; 85025; 86334; 97116; 97161; 97530; J0696; J2001; J7030

== ENCOUNTER 2024-03-15 09:13 | Emergency (ER) | payer OTHER, MEDICARE ==
--- NOTE | 2024-03-15 09:57 | RAD REPORT ---
Procedure: Chest Single View HISTORY: Cough COMPARISON: 2018 FINDINGS: The lungs appear clear of acute infiltrate. No significant pleural effusion noted. The heart is moderately enlarged. IMPRESSION: No acute abnormality is displayed.
[2024-03-15 10:15] LABS: Absolute Eosinophils 0.1 K/uL (0-0.5); Absolute Lymphocytes (CBC) 1.2 K/uL (0.7-4.9); Absolute Monocytes 0.4 K/uL (0.1-1.3); Absolute Neutrophil 3.7 K/uL (1.8-8.0); Basophils % 0.2 % (0-1.3); Eosinophils % 1.2 % (0-4.4); Hematocrit 39.3 % (36.0-45.0); Hemoglobin 13.1 g/dL (12.0-15.0); Lymphocytes % 22.5 % (15.3-44.8); MCH 29.9 pg (27.0-35.0); MCHC 33.2 g/dL (32.0-36.0); MCV 90.1 fL (80-100); MPV 8.4 fL (7.6-11.3); Monocytes % 8.1 % (3.3-12.3); Platelets 252 thou/uL (152-406); RBC Red Blood Cell Count 4.36 M/uL (3.86-4.86); Red Cell Distribution Width 13.8 % (12.1-15.2)
[2024-03-15] MEDS ORDERED: NA CHLORIDE 0.9% 1,000 ML ONE (10:16)
[2024-03-15 10:28] LABS: SARS-CoV-2 Antigen CONTROL BLUE LINE VIS/BG OK; SARS-CoV-2 Antigen Rapid Res Negative (Negative)
[2024-03-15 10:29] LABS: Anion Gap 7.2 mEq/L (5.0-15.0); Potassium 4.2 mEq/L (3.5-5.1); Troponin High Sensitivity 16.8 pg/mL (<58.9)
[2024-03-15 10:54] LABS: Specific Gravity 1.012 (1.005-1.030); Sqamous Epithelial <5 /HPF (None Seen); Urine Bacteria None Seen /HPF (<20); Urine Bilirubin NEGATIVE (Negative); Urine Blood Negative (Negative); Urine Clarity Extremely Turbid (Clear); Urine Color Light-Yellow (Yellow); Urine Culture Reflex Order NOT NEEDED; Urine Glucose NEGATIVE (Negative); Urine Ketones NEGATIVE (Negative); Urine Micro Reflex YN NO BILL MICROSCOPIC; Urine Mucus Slight /HPF (None Seen); Urine Nitrite NEGATIVE (Negative); Urine Protein NEGATIVE (Negative); Urine RBC <5 /HPF (None Seen); Urine Urobilinogen Normal (Normal); Urine WBC <5 /HPF (<5); Urine pH 7.5 (5.0-7.0)
--- NOTE | 2024-03-15 11:23 | EDPHYS ---
Physician Documentation [facility] Name: Shanice Morales Age: 88 yrs Sex: Female : 1935 Arrival Date: 03/15/2024 Time: 09:13 Bed 5 Private MD: ED Physician Lamin Arrieta HPI: 03/15 09:18 This 88 yrs old Female presents to ER via Unassigned with complaints of ec2 weakness. 09:18 . ec2 09:18 Patient arrives today for evaluation of generalized weakness. Patient reports that she ec2 has been having some generalized weakness today. Patient reports that she got more tired today on her morning walk than she typically does. Reports otherwise no recent nausea or vomiting or diarrhea. Reports that she is been tolerating p.o. however has been having decreased p.o. as she is trying to lose weight. Reports no urinary complaints. Denies any cough and cold symptoms, denies shortness of breath.. Historical: - Allergies: 09:21 Compazine; ap3 09:21 Demerol; ap3 09:21 meperidine HCl; ap3 - PMHx: 09:21 Atrial Fib; Hyperlipidemia; Hypertension; Hypothyroidism; nerve pain; TIA; Vertigo; ap3 - Immunization history:: Adult Immunizations. - Infectious Disease History:: Denies. - Social history:: Smoking status: unknown. ROS: 09:20 Constitutional: as per hpi ec2 Exam: 09:20 Constitutional: GEN: NAD Head: atraumatic Eyes: EOMI Ears: External ears are ec2 normal. CV: regular rate LUNGS: no respiratory distress ABD: non-distended, soft, nontender, not guarding, not rigid SKIN: no evidence of rashes MSK: no evidence of trauma Vital Signs: 09:19 BP 184 / 80; Pulse 70; Resp 17; Temp 97.7(O); Pulse Ox 97% on R/A; Weight 75.75 kg; ap3 09:57 BP 164 / 70; Pulse 64; Pulse Ox 97% on R/A; ap3 10:14 BP 138 / 76; Pulse 60; Pulse Ox 97% on R/A; ap3 MDM: 09:18 Medical Screening Exam initiated ec2 09:20 Data reviewed: vital signs, nurses notes. ED course: Patient arrives today for ec2 generalized weakness. Examination is unrevealing. Will obtain lab work, urine studies, EKG. Differential includes processes such as urinary tract infection, anemia, electrolyte disturbances, dehydration.. 10:05 ED course: EKG independently reviewed and interpreted by me, shows normal sinus rhythm, ec2 rate of 64, no acute ST segment elevations, left bundle branch block noted, PVC noted.. 11:22 ED course: Labs unrevealing. Will discharge home. Return precautions given. Instructed ec2 to maintain hydration given patient's reported poor hydration. Will have her follow-up with her primary care doctor as well. Return precautions given.. 03/15 09:17 Order name: Basic Metabolic Panel; Complete Time: 10:53 ec2 03/15 09:17 Order name: CBC with Diff; Complete Time: 10:25 ec2 03/15 09:17 Order name: NT PRO-BNP; Complete Time: 10:53 ec2 03/15 09:17 Order name: Troponin HS; Complete Time: 10:53 ec2 03/15 09:17 Order name: Influenza Screen (a \T\ B); Complete Time: 10:53 ec2 03/15 09:17 Order name: SARS RAPID; Complete Time: 10:53 ec2 03/15 09:20 Order name: UAM; Complete Time: 10:55 ec2 03/15 09:17 Order name: XRAY Chest (1 view); Complete Time: 09:58 ec2 03/15 09:17 Order name: Cardiac monitoring; Complete Time: 09:35 ec2 03/15 09:17 Order name: EKG - Nurse/Tech; Complete Time: 10:01 ec2 03/15 09:17 Order name: IV Saline Lock; Complete Time: 10:08 ec2 03/15 09:17 Order name: Labs collected and sent; Complete Time: 10:08 ec2 03/15 09:17 Order name: O2 Per Protocol; Complete Time: 09:35 ec2 03/15 09:17 Order name: O2 Sat Monitoring; Complete Time: 09:35 ec2 Administered Medications: 10:32 Drug: NS 0.9% IV 1000 ml IV at 1000 ml once; to be given as a bolus over 60 minutes ap3 Route: IV; Rate: 1000 ml; Site: right antecubital; 11:51 Follow up: IV Status: Completed infusion ap3 Disposition Summary: 03/15/24 11:22 Discharge Ordered Notes: Location: Home ec2 Condition: Stable ec2 Diagnosis - Weakness ec2 Followup: ec2 - With: Private Physician - When: - Reason: Re-evaluation by your physician Discharge Instructions: - Discharge Summary Sheet ec2 - Weakness ec2 Forms: - Medication Reconciliation Form ec2 - Antibiotic Education ec2 - Prescription Opioid Use ec2 - Patient Portal Instructions ec2 - Leadership Thank You Letter ec2 Signatures: Dispatcher [employer] Lilia Abad RN RN ap3 Lamin Arrieta MD MD ec2 Corrections: (The following items were deleted from the chart) 09:18 09:18 BASIC METABOLIC PANEL+C.LAB.BRZ ordered. EDMS EDMS 09:18 09:18 CBC+H.LAB.BRZ ordered. EDMS EDMS 09:18 09:18 PROBNP+C.LAB.BRZ ordered. EDMT EDMS 09:18 09:18 Troponin High Sensitivity+C.LAB.BRZ ordered. EDMT EDMS 09:18 09:18 Influenza Screen (A \T\ B)+BA.LAB.BRZ ordered. EDMS EDMS 09:18 09:18 SARS-COV-2 Antigen Rapid+I.LAB.BRZ ordered. EDMS EDMS 09:18 09:18 Chest Single View+RAD.RAD.BRZ ordered. EDMS EDMS 09:20 09:18 This 88 yrs old Female presents to ER via Unassigned with complaints of ec2 weakness. ec2
--- NOTE | 2024-03-15 11:23 | ER ---
Nurse's Notes [facility] Name: Shanice Morales Age: 88 yrs Sex: Female : 1935 Arrival Date: 03/15/2024 Time: 09:13 Bed 5 Private MD: Diagnosis: Weakness Presentation: 03/15 09:19 Chief complaint: EMS states: they were called to [facility] for a patient who was ap3 short of breath with low Sp02. Coronavirus screen: At this time, the client does not indicate any symptoms associated with coronavirus-19. Ebola Screen: No symptoms or risks identified at this time. Initial Sepsis Screen: Does the patient meet any 2 criteria? No. Patient's initial sepsis screen is negative. Does the patient have a suspected source of infection? No. Patient's initial sepsis screen is negative. Risk Assessment: Do you want to hurt yourself or someone else? Patient reports no desire to harm self or others. Note EMS BGL on arrival 67. administered "some glucose". repeat BGL 169. Onset of symptoms was March 15, 2024. 09:19 Method Of Arrival: EMS: [facility] ap3 09:19 Acuity: KYA 3 ap3 11:09 Transition of care: patient was received from another setting of care (long-term care ap3 facility), [facility]. Triage Assessment: 09:23 General: Appears in no apparent distress. Behavior is calm, cooperative, appropriate ap3 for age. Pain: Denies pain. Neuro: Level of Consciousness is awake, alert, obeys commands, Oriented to person, place, time, situation. Cardiovascular: Patient's skin is warm and dry. Respiratory: Reports shortness of breath on exertion Airway is patent Respiratory effort is even, unlabored. Historical: - Allergies: 09:21 Compazine; ap3 09:21 Demerol; ap3 09:21 meperidine HCl; ap3 - PMHx: 09:21 Atrial Fib; Hyperlipidemia; Hypertension; Hypothyroidism; nerve pain; TIA; Vertigo; ap3 - Immunization history:: Adult Immunizations. - Infectious Disease History:: Denies. - Social history:: Smoking status: unknown. Screenin:23 Abuse screen: Denies threats or abuse. Nutritional screening: No deficits noted. ap3 Tuberculosis screening: No symptoms or risk factors identified. 11:50 [facility] ED Fall Risk Assessment (Adult) History of falling in the last 3 months, ap3 including since admission No falls in past 3 months (0 pts) Confusion or Disorientation No (0 pts) Intoxicated or Sedated No (0 pts) Impaired Gait No (0 pts) Mobility Assist Device Used Yes (1 pt) Altered Elimination No (0 pt) Score/Fall Risk Level 0 - 2 = Low Risk Oriented to surroundings, Maintained a safe environment, Educated pt \\T\\ family on fall prevention, incl call for assistance when getting out of bed, Assessed \\T\\ reinforced patient's understanding of fall precautions, Hourly rounding (assess needs \\T\\ fall precautionary measures) done, Used ambulatory aids as needed (educated on \\T\\ assisted with), Used gait belt as appropriate. Vital Signs: 09:19 BP 184 / 80; Pulse 70; Resp 17; Temp 97.7(O); Pulse Ox 97% on R/A; Weight 75.75 kg; ap3 09:57 BP 164 / 70; Pulse 64; Pulse Ox 97% on R/A; ap3 10:14 BP 138 / 76; Pulse 60; Pulse Ox 97% on R/A; ap3 ED Course: 09:16 Patient arrived in ED. bc6 09:17 Lamin Arrieat MD is Attending Physician. ec2 09:19 Lilia Rodriguez, KIARA is Primary Nurse. ap3 09:21 Triage completed. ap3 09:23 Client placed on continuous cardiac and pulse oximetry monitoring. NIBP monitoring ap3 applied. hot knife foxing cutter on. Pulse ox on. NIBP on. 09:23 Arm band placed on right wrist. ap3 09:49 XRAY Chest (1 view) In Process Unspecified. EDMS 10:09 EKG done, by ED staff, reviewed by Lamin Arrieta MD. Initial lab(s) drawn, by va, sent kb4 to lab. COVID swab sent to lab. Flu and/or RSV swab sent to lab. Inserted saline lock: 20 gauge in right antecubital area, using aseptic technique. Blood collected. Flushed with 10 mL NS. 10:32 UAM Sent. ap3 11:50 No provider procedures requiring assistance completed. IV discontinued, intact, ap3 bleeding controlled, No redness/swelling at site. Pressure dressing applied. 11:51 Patient has correct armband on for positive identification. Provided Education on: fall ap3 risk education. Administered Medications: 10:32 Drug: NS 0.9% IV 1000 ml IV at 1000 ml once; to be given as a bolus over 60 minutes ap3 Route: IV; Rate: 1000 ml; Site: right antecubital; 11:51 Follow up: IV Status: Completed infusion ap3 Medication: 11:52 VIS not applicable for this client. ap3 Outcome: 11:22 Discharge ordered by . ec2 11:51 Discharged to home via wheelchair, with family, ap3 11:51 Condition: good 11:51 Discharge instructions given to patient, family, Instructed on discharge instructions, follow up and referral plans. Demonstrated understanding of instructions, :52 Patient left the ED. ap3 Signatures: Dispatcher [employer] Lilia Abad RN RN ap3 Miryam Diane bc6 Lamin Arrieta MD MD ec2 Christiana Greenwood kb4
[2024-03-15 12:07] VITALS: TEMP 97.7; O2SAT 97
[2024-03-15 12:10] VITALS: BP 138/76
--- NOTE | 2024-03-16 12:44 | EKG ---
Test Date: 2024-03-15 Test Time: 09:46:54 Residential Manager: CAMPBELL MEASUREMENT RESULTS: Intervals: Rate: 64 GA: 202 QRSD: 150 QT: 430 QTc: 443 [place]: P: 68 GA: 202 QRS: -75 T: 61 INTERPRETIVE STATEMENTS: Sinus rhythm with occasional premature ventricular complexes Left axis deviation Left bundle branch block Abnormal ECG Compared to ECG 08/27/2022 08:47:05 Ventricular premature complex(es) now present First degree AV block no longer present Electronically Signed On 03-16-24 12:41:08 SUPERVISING FILM OR VIDEOTAPE EDITOR by Buster Weston
== END 2024-03-15 11:52 | disposition home or self-care (01) ==
LOC: ER 09:13
DX: R53.1 Weakness (principal); I48.91 Unspecified atrial fibrillation; I10 Essential (primary) hypertension; E78.5 Hyperlipidemia, unspecified; E03.9 Hypothyroidism, unspecified; Z11.52 Encounter for screening for COVID-19; Z86.73 Personal history of transient ischemic attack (TIA), and cerebral infarction without residual deficits; Z88.5 Allergy status to narcotic agent; Z88.8 Allergy status to other drugs, medicaments and biological substances
CPT/HCPCS: 93005; 85025; 81001; 80048; 36415; 84484; 83880; 87804 ×2; 71045; 96360; 99285; 87811; J7030